=== PATIENT | male | born 1940 | race Two or more races ===

== ENCOUNTER 2016-09-29 22:38 | Inpatient (IN) | payer MEDICARE, MEDICAID ==
[~2016-09-29] VITALS: Ht 165.1 cm; Wt 43.1 kg
[2016-09-29 22:42] VITALS: BP 148/76
[2016-09-29 23:24] LABS: BASOPHILS % (AUTO) 1.1 % (0.0-2.0); EOSINOPHILS % (AUTO) 1.4 % (0.0-3.0); LYMPHOCYTES % (AUTO) 20.7 % (20.0-45.0); MEAN CORPUSCULAR HEMOGLOBIN 31.1 PG (27.0-31.0); MEAN CORPUSCULAR HGB CONC 34.3 G/DL (32.0-36.0); MEAN CORPUSCULAR VOLUME 91 FL (80-99); MEAN PLATELET VOLUME 7.5 FL (6.5-10.1); MONOCYTES % (AUTO) 12.3 % (1.0-10.0); NEUTROPHILS % (AUTO) 64.6 % (45.0-75.0); PLATELET COUNT 169 K/UL (150-450); RED CELL DISTRIBUTION WIDTH 13.3 % (11.6-14.8); WHITE BLOOD COUNT 7.3 K/UL (4.8-10.8)
[2016-09-29 23:43] LABS: TROPONIN I < 0.30 ng/mL (<=0.30)
[2016-09-29 23:46] LABS: ALANINE AMINOTRANSFERASE 5 U/L (3-41); ALBUMIN/GLOBULIN RATIO 1.2 (1.0-2.7); ANION GAP 14 (5-15); ASPARTATE AMINO TRANSFERASE 12 U/L (5-40); CALCIUM 6.2 mg/dL (8.6-10.2); CARBON DIOXIDE 21 mEQ/L (20-30); CHLORIDE 106 mEQ/L (98-107); CREATININE 0.8 mg/dL (0.7-1.2); HEMOLYSIS 30; POTASSIUM 2.9 mEQ/L (3.4-4.9); SODIUM 141 mEQ/L (135-145); TOTAL PROTEIN 4.7 g/dL (6.6-8.7)
[2016-09-30] VITALS (8 sets, daily range): BP systolic 126–160; BP diastolic 61–92
[2016-09-30] MEDS ORDERED: UNOBMED (02:51)
--- NOTE | 2016-09-30 04:10 | Emergency Room Report ---
History of Present Illness General Chief Complaint: Chest Pain Source: Patient, EMS Present Illness HPI Patient is a 76-year-old male who presented after increased generalized body aches and generalized weakness. The patient brought in by EMS. Patient stated that he most of his body was in pain. The patient appears to be somewhat confused. Patient markedly limited by patient's mental status. Allergies: Coded Allergies: No Known Allergies (Unverified , 09/29/16) Patient History Past Medical History: see triage record Reviewed Nursing Documentation: PMH: Agreed, PSxH: Agreed Nursing Documentation-PMH Past Medical History: No History, Except For Review of Systems All Other Systems: negative except mentioned in HPI Physical Exam Vital Signs Date Time Temp Pulse Resp B/P Pulse Ox O2 Delivery O2 Flow Rate FiO2 09/29/16 22:35 96 18 148/76 96 Room Air 09/29/16 22:42 99.1 Sp02 EP Interpretation: reviewed, normal General Appearance: normal inspection, well appearing, no apparent distress, alert Head: atraumatic ENT: normal ENT inspection, hearing grossly normal, normal voice Neck: normal inspection, full range of motion, supple, no bony tend Respiratory: normal inspection, lungs clear, normal breath sounds, no respiratory distress, no retraction, no wheezing Cardiovascular #1: regular rate, rhythm, no edema Gastrointestinal: normal inspection, normal bowel sounds, non tender, soft, no guarding, no hernia Genitourinary: no CVA tenderness Musculoskeletal: normal inspection, back normal, normal range of motion Neurologic: normal inspection, alert, responsive, 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 Differential diagnosis included was not limited to anemia, urinary tract infection, electrolyte abnormality, hypothyroidism, myocardial infarction, myasthenia gravis, dehydration, among others. Because of complexity of patient's case laboratory testing and imaging studies were ordered. The patient given IV fluids as well as oral potassium. Patient noted be somewhat confused and ambulatory without assistance. Labs Test 09/29/16 23:05 White Blood Count 7.3 K/UL (4.8-10.8) Red Blood Count 4.70 M/UL (4.70-6.10) Hemoglobin 14.6 G/DL (14.2-18.0) Hematocrit 42.6 % (42.0-52.0) Mean Corpuscular Volume 91 FL (80-99) Mean Corpuscular Hemoglobin 31.1 PG (27.0-31.0) Mean Corpuscular Hemoglobin Concent 34.3 G/DL (32.0-36.0) Red Cell Distribution Width 13.3 % (11.6-14.8) Platelet Count 169 K/UL (150-450) Mean Platelet Volume 7.5 FL (6.5-10.1) Neutrophils (%) (Auto) 64.6 % (45.0-75.0) Lymphocytes (%) (Auto) 20.7 % (20.0-45.0) Monocytes (%) (Auto) 12.3 % (1.0-10.0) Eosinophils (%) (Auto) 1.4 % (0.0-3.0) Basophils (%) (Auto) 1.1 % (0.0-2.0) Sodium Level 141 mEQ/L (135-145) Potassium Level 2.9 mEQ/L (3.4-4.9) Chloride Level 106 mEQ/L (98-107) Carbon Dioxide Level 21 mEQ/L (20-30) Anion Gap 14 (5-15) Blood Urea Nitrogen 5 mg/dL (7-23) Creatinine 0.8 mg/dL (0.7-1.2) Estimat Glomerular Filtration Rate mL/min (>60) Glucose Level 85 mg/dL (74-106) Lactic Acid Level 0.90 mmol/L (0.66-2.22) Calcium Level 6.2 mg/dL (8.6-10.2) Total Bilirubin 0.3 mg/dL (0.0-1.2) Aspartate Amino Transf (AST/SGOT) 12 U/L (5-40) Alanine Aminotransferase (ALT/SGPT) 5 U/L (3-41) Alkaline Phosphatase 39 U/L (40-129) Total Creatine Kinase 65 U/L (38-174) Creatine Kinase MB 2.0 ng/mL (< 6.7) Creatine Kinase MB Relative Index 3.0 Troponin I < 0.30 ng/mL (<=0.30) Total Protein 4.7 g/dL (6.6-8.7) Albumin 2.6 g/dL (3.5-5.2) Globulin 2.1 g/dL Albumin/Globulin Ratio 1.2 (1.0-2.7) EKG Diagnostic Results Rate: normal Rhythm: NSR ST Segments: no acute changes Last Vital Signs Date Time Temp Pulse Resp B/P Pulse Ox O2 Delivery O2 Flow Rate FiO2 09/30/16 02:46 74 18 154/80 100 Room Air 09/30/16 00:44 98.0 Status: unchanged Disposition: ADMITTED INPATIENT Condition: Serious Referrals: NOT CHOSEN IPA/,REFERRING (PCP) Jimenez Chase Sep 30, 2016 04:10
[2016-09-30] MEDS ORDERED: cefTRIAXone 1 GM in D5W 55 ML IVPB SCH (04:15)
[2016-09-30] MEDS ORDERED: D5W 55 ML IV ONE (04:38)
[2016-09-30] MEDS ORDERED: Tubing IV Cassette IV ONE (04:38)
[2016-09-30] MEDS ORDERED: DuoNeb 0.5-3(2.5)mg/3ml neb HHN PRN (07:15)
[2016-09-30] MEDS ORDERED: Miralax 17gm pkt ORAL PRN (07:15)
[2016-09-30] MEDS ORDERED: Morphine Sulfate 2mg/ml Inj IVP PRN (07:15)
[2016-09-30] MEDS ORDERED: Nitroglycerin Subl 0.4mg tab (Bottle Of 25) SL PRN (07:30)
[2016-09-30] MEDS: Heparin 5000 units/ml inj SUBQ SCH ×2 (08:50→21:19)
[2016-09-30] MEDS ORDERED: Vancomycin 1 GM in D5W 275 ML IVPB ONE (09:00)
--- NOTE | 2016-09-30 11:04 | Diagnostic Imaging Report ---
Indication: SOB Technique: One view of the chest Comparison: none Findings: Lungs and pleural spaces are clear. Heart size is normal. Aorta is calcified. There are degenerative changes of the thoracic spine Impression: No acute process
[2016-09-30] MEDS: Cefepime HCl 2 GM in D5W 110 ML IV SCH (11:19)
--- NOTE | 2016-09-30 16:24 | History & Physical ---
History and Physical History & Physicial Dictated for Int Med-Dr Fischer no. [id number]. RASHID FERRELL Sep 30, 2016 16:24
[2016-09-30 19:24] LABS: ANION GAP 16 (5-15); CALCIUM 9.1 mg/dL (8.6-10.2); CARBON DIOXIDE 24 mEQ/L (20-30); CHLORIDE 101 mEQ/L (98-107); CREATININE 1.2 mg/dL (0.7-1.2); HEMOLYSIS 14; POTASSIUM 4.5 mEQ/L (3.4-4.9); SODIUM 141 mEQ/L (135-145)
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
[2016-10-01] VITALS (7 sets, daily range): BP systolic 118–154; BP diastolic 59–85
--- NOTE | 2016-10-01 02:28 | History and Physical Report ---
DATE OF ADMISSION: 09/30/[address] Fischer. CHIEF COMPLAINT: The patient is a 76-year-old male who presents with chief complaint of generalized weakness and body aches. HISTORY OF PRESENT ILLNESS: The patient apparently lives alone. The patient's history and physical is difficult secondary to patient's mental status. Much of the history and physical is obtained from the patient's chart. The patient apparently presented to [facility] with altered mental status. The patient was confused. The patient was complaining of generalized weakness. The patient was also complained of generalized body aches. The patient was admitted for generalized weakness to rule out sepsis. REVIEW OF SYSTEMS: Unable to assess, secondary to the patient's mental condition. PAST MEDICAL HISTORY: The patient denies. PAST SURGICAL HISTORY: The patient denies. CURRENT MEDICATIONS: The patient denies. ALLERGIES: No known drug allergies. SOCIAL HISTORY: The patient states that he is , however he lives alone. The patient denies tobacco or alcohol use. PHYSICAL EXAMINATION: VITAL SIGNS: Temperature 97.3, respirations 18, pulse 62, and blood pressure . GENERAL: The patient is a well-developed and well-nourished thin appearing male in no apparent distress. HEENT: Eyes, pupils are equal and responsive to light and accommodation. Extraocular movements are intact. NECK: Supple without lymphadenopathy. CHEST: Lungs are clear to auscultation bilaterally without wheezes or rales. CARDIOVASCULAR: Regular rhythm and rate. S1 and S2 normal without murmurs, rubs, or gallops. ABDOMEN: Soft, nontender, and nondistended. Positive bowel sounds. No evidence of hepatosplenomegaly. Currently, no rebound or guarding. EXTREMITIES: Negative for clubbing, cyanosis, or edema. RECTAL/GENITAL: Refused. NEUROLOGIC: Cranial nerves II through XII are grossly intact without focal deficits. Motor strength is 5/5 bilaterally. Deep tendon reflexes 2+ plantar. LABORATORY STUDIES: WBC 7.3, hemoglobin 14.6, hematocrit 42.6, and platelets 169,000. Sodium 141, potassium decreased 2.9, chloride 106, CO2 21, BUN 5, creatinine 0.8, and glucose 85. Troponin less than 0.3. Chest x-ray was reported as no acute disease. ASSESSMENT: This is a 76-year-old male, 1. Generalized weakness. 2. Myalgias. 3. Altered mental status. 4. Hypokalemia. TREATMENT: 1. Altered mental status. The patient is currently clearing somewhat. A Neurology consultation with Dr. Luna. An MRI of the brain is pending. We will follow recommendation of Neurology. 2. Hypokalemia. The patient is currently receiving potassium supplementation. 3. Myalgias. Allen Forrest M.D. DR: MARV JOB#: [id number] CC:
[2016-10-01 07:42] LABS: EOSINOPHILS % (AUTO) 1.7 % (0.0-3.0); LYMPHOCYTES % (AUTO) 26.5 % (20.0-45.0); MEAN CORPUSCULAR HEMOGLOBIN 29.4 PG (27.0-31.0); MEAN CORPUSCULAR HGB CONC 32.1 G/DL (32.0-36.0); MEAN CORPUSCULAR VOLUME 92 FL (80-99); MEAN PLATELET VOLUME 7.7 FL (6.5-10.1); MONOCYTES % (AUTO) 11.6 % (1.0-10.0); NEUTROPHILS % (AUTO) 59.1 % (45.0-75.0); PLATELET COUNT 197 K/UL (150-450); RED BLOOD COUNT 5.23 M/UL (4.70-6.10); RED CELL DISTRIBUTION WIDTH 13.5 % (11.6-14.8)
[2016-10-01 07:58] LABS: MAGNESIUM 2.3 mg/dL (1.7-2.5); PHOSPHORUS 2.3 mg/dL (2.5-4.8)
[2016-10-01 08:01] LABS: ALANINE AMINOTRANSFERASE 6 U/L (3-41); ALBUMIN/GLOBULIN RATIO 1.1 (1.0-2.7); ANION GAP 14 (5-15); ASPARTATE AMINO TRANSFERASE 17 U/L (5-40); CALCIUM 9.2 mg/dL (8.6-10.2); CARBON DIOXIDE 25 mEQ/L (20-30); CHLORIDE 100 mEQ/L (98-107); CREATININE 1.2 mg/dL (0.7-1.2); HEMOLYSIS 6; POTASSIUM 4.4 mEQ/L (3.4-4.9); SODIUM 139 mEQ/L (135-145); TROPONIN I < 0.30 ng/mL (<=0.30)
[2016-10-01] MEDS ORDERED: Vancomycin 750mg/D5W 275ml IVPB SCH ×2 (09:00)
[2016-10-01] MEDS: Heparin 5000 units/ml inj SUBQ SCH ×2 (09:06→21:06)
[2016-10-01] MEDS: Cefepime HCl 2 GM in D5W 110 ML IV SCH (10:58)
--- NOTE | 2016-10-01 14:50 | Internal Med Progress Note ---
Subjective Date of Service: Oct 01, 2016 Physician Name Rashid Ferrell Attending Physician Hussain Fischer MD Current Medications Medications (Trade) Dose Ordered Sig/Edith Route PRN Reason Start Time Stop Time Status Last Admin Dose Admin Acetaminophen (Tylenol) 650 mg Q4H PRN ORAL T>100.5 09/30/16 07:15 10/30/16 07:14 Albuterol/ Ipratropium (DuoNeb 0.5-3(2.5)mg/3ml) 3 ml Q4H PRN HHN Shortness of Breath 09/30/16 07:15 10/05/16 07:14 Cefepime HCl/ Sodium Chloride (Maxipime/Sodium Chloride) 110 ml @ 220 mls/hr Q24H IV 10/02/16 11:00 10/07/16 10:59 Heparin Sodium (Porcine) (Heparin 5000 units/ml) 5,000 units EVERY 12 HOURS SUBQ 09/30/16 09:00 10/30/16 08:59 10/01/16 09:06 Morphine Sulfate (Morphine Sulfate) 2 mg Q4H PRN IVP Moderate Pain (Pain Scale 4-6) 09/30/16 07:15 10/07/16 07:14 Nitroglycerin (Ntg) 0.4 mg Q5MIN X 3 DOSES PRN SL Prn Chest Pain 09/30/16 07:30 10/30/16 07:29 Ondansetron HCl (Zofran) 4 mg Q6H PRN IVP Nausea & Vomiting 09/30/16 07:15 10/30/16 07:14 Polyethylene Glycol (Miralax) 17 gm DAILYPRN PRN ORAL Constipation 09/30/16 07:15 10/30/16 07:14 Temazepam (Restoril) 15 mg HSPRN PRN ORAL Insomnia 09/30/16 21:00 10/07/16 20:59 Vancomycin HCl 750 mg/Dextrose 275 ml @ 183.708 mls/hr Q24H IVPB 10/01/16 09:00 10/06/16 08:59 10/01/16 09:01 Vancomycin HCl 1 ea 1 ea DAILY PRN MISC . 09/30/16 07:30 10/30/16 07:29 Allergies: Coded Allergies: No Known Allergies (Unverified , 09/29/16) ROS Limited/Unobtainable: No Constitutional: Reports: no symptoms HEENT: Reports: no symptoms Cardiovascular: Reports: no symptoms Respiratory: Reports: no symptoms Gastrointestinal/Abdominal: Reports: no symptoms Genitourinary: Reports: no symptoms Neurologic/Psychiatric: Reports: no symptoms Subjective 76 YO M admitted with syncope and altered mental status. Await CT brain. Cover for Int Doyle-Dr Fischer. Objective Last Vital Signs Date Time Temp Pulse Resp B/P Pulse Ox O2 Delivery O2 Flow Rate FiO2 10/01/16 12:01 97.5 60 20 118/59 96 Room Air Laboratory Tests Test 09/30/16 18:58 10/01/16 05:10 Sodium Level 141 mEQ/L (135-145) 139 mEQ/L (135-145) Potassium Level 4.5 mEQ/L (3.4-4.9) # 4.4 mEQ/L (3.4-4.9) Chloride Level 101 mEQ/L (98-107) 100 mEQ/L (98-107) Carbon Dioxide Level 24 mEQ/L (20-30) 25 mEQ/L (20-30) Anion Gap 16 (5-15) H 14 (5-15) Blood Urea Nitrogen 7 mg/dL (7-23) 8 mg/dL (7-23) Creatinine 1.2 mg/dL (0.7-1.2) 1.2 mg/dL (0.7-1.2) Estimat Glomerular Filtration Rate mL/min (>60) mL/min (>60) Glucose Level 114 mg/dL (74-106) H 79 mg/dL (74-106) Calcium Level 9.1 mg/dL (8.6-10.2) # 9.2 mg/dL (8.6-10.2) White Blood Count 7.0 K/UL (4.8-10.8) Red Blood Count 5.23 M/UL (4.70-6.10) Hemoglobin 15.4 G/DL (14.2-18.0) Hematocrit 47.9 % (42.0-52.0) Mean Corpuscular Volume 92 FL (80-99) Mean Corpuscular Hemoglobin 29.4 PG (27.0-31.0) Mean Corpuscular Hemoglobin Concent 32.1 G/DL (32.0-36.0) Red Cell Distribution Width 13.5 % (11.6-14.8) Platelet Count 197 K/UL (150-450) Mean Platelet Volume 7.7 FL (6.5-10.1) Neutrophils (%) (Auto) 59.1 % (45.0-75.0) Lymphocytes (%) (Auto) 26.5 % (20.0-45.0) Monocytes (%) (Auto) 11.6 % (1.0-10.0) H Eosinophils (%) (Auto) 1.7 % (0.0-3.0) Basophils (%) (Auto) 1.0 % (0.0-2.0) Phosphorus Level 2.3 mg/dL (2.5-4.8) L Magnesium Level 2.3 mg/dL (1.7-2.5) Total Bilirubin 0.8 mg/dL (0.0-1.2) Aspartate Amino Transf (AST/SGOT) 17 U/L (5-40) Alanine Aminotransferase (ALT/SGPT) 6 U/L (3-41) Alkaline Phosphatase 63 U/L (40-129) Troponin I < 0.30 ng/mL (<=0.30) Total Protein 7.0 g/dL (6.6-8.7) # Albumin 3.7 g/dL (3.5-5.2) Globulin 3.3 g/dL Albumin/Globulin Ratio 1.1 (1.0-2.7) Microbiology Date/Time Source Procedure Growth Status 09/29/16 23:05 Blood Blood Culture - Preliminary NO GROWTH AFTER 24 HOURS Resulted 09/29/16 22:50 Blood Blood Culture - Preliminary NO GROWTH AFTER 24 HOURS Resulted Intake and Output 09/30/16 10/01/16 19:00 07:00 Intake Total 720 ml 480 ml Balance 720 ml 480 ml Intake Oral 720 ml 480 ml # Voids 3 # Bowel Movements 2 Objective General: alert, cooperative, no distress, appears stated age Head: normocephalic, without obvious abnormality, atraumatic; Contusion left forehead Eyes: conjunctivae/corneas clear. PERRL, EOM's intact Throat: lips, mucosa, and tongue normal. MMM Neck: supple, symmetrical, trachea midline, and no JVD Lungs: clear to auscultation bilaterally Heart: regular rate and rhythm, S1, S2 normal, no murmur, click, rub or gallop Abdomen: soft, non-tender, non-distended, bowel sounds normal; no masses or organomegaly Extremities: extremities normal, atraumatic, no cyanosis or edema Pulses: 2+ and symmetric Skin: skin color, texture, turgor normal; no rashes or lesions Neurologic: grossly normal, no focal deficits Assessment/Plan Problem List: (1) Altered mental status Assessment & Plan: ?sepsis? Continue cefepime and vanco. (2) Myalgia (3) Contusion of forehead Assessment & Plan: Await CT brain. (4) Generalized weakness (5) Hypokalemia Assessment & Plan: Resolved Status: not improved RASHID FERRELL Oct 01, 2016 14:50
[2016-10-02 03:37] VITALS: BP 142/75
[2016-10-02 08:00] VITALS: BP 149/77
[2016-10-02 08:46] LABS: BASOPHILS % (AUTO) 1.5 % (0.0-2.0); EOSINOPHILS % (AUTO) 2.4 % (0.0-3.0); LYMPHOCYTES % (AUTO) 27.4 % (20.0-45.0); MEAN CORPUSCULAR HEMOGLOBIN 29.2 PG (27.0-31.0); MEAN CORPUSCULAR HGB CONC 31.9 G/DL (32.0-36.0); MEAN CORPUSCULAR VOLUME 91 FL (80-99); MEAN PLATELET VOLUME 7.7 FL (6.5-10.1); MONOCYTES % (AUTO) 11.3 % (1.0-10.0); NEUTROPHILS % (AUTO) 57.4 % (45.0-75.0); PLATELET COUNT 197 K/UL (150-450); RED BLOOD COUNT 5.58 M/UL (4.70-6.10); RED CELL DISTRIBUTION WIDTH 13.7 % (11.6-14.8); WHITE BLOOD COUNT 6.3 K/UL (4.8-10.8)
[2016-10-02 09:14] LABS: ANION GAP 17 (5-15); CALCIUM 9.3 mg/dL (8.6-10.2); CARBON DIOXIDE 24 mEQ/L (20-30); CHLORIDE 100 mEQ/L (98-107); CREATININE 1.1 mg/dL (0.7-1.2); HEMOLYSIS 10; POTASSIUM 4.1 mEQ/L (3.4-4.9); SODIUM 141 mEQ/L (135-145)
[2016-10-02] MEDS: Heparin 5000 units/ml inj SUBQ SCH ×2 (10:08→20:51)
[2016-10-02] MEDS: Cefepime HCl 2 GM in NS 110 ML IV SCH (10:08)
[2016-10-02] MEDS: Vancomycin 1gm in D5W 275ml IVPB SCH (11:30)
[2016-10-02 12:00] VITALS: BP 149/77
--- NOTE | 2016-10-02 15:47 | Internal Med Progress Note ---
Subjective Date of Service: Oct 02, 2016 Physician Name Rashid Ferrell Attending Physician Hussain Fischer MD Current Medications Medications (Trade) Dose Ordered Sig/Edith Route PRN Reason Start Time Stop Time Status Last Admin Dose Admin Acetaminophen (Tylenol) 650 mg Q4H PRN ORAL T>100.5 09/30/16 07:15 10/30/16 07:14 Albuterol/ Ipratropium (DuoNeb 0.5-3(2.5)mg/3ml) 3 ml Q4H PRN HHN Shortness of Breath 09/30/16 07:15 10/05/16 07:14 Cefepime HCl 2 gm/ Sodium Chloride 110 ml @ 220 mls/hr Q24H IV 10/02/16 11:00 10/07/16 10:59 10/02/16 10:08 Heparin Sodium (Porcine) (Heparin 5000 units/ml) 5,000 units EVERY 12 HOURS SUBQ 09/30/16 09:00 10/30/16 08:59 10/02/16 10:08 Morphine Sulfate (Morphine Sulfate) 2 mg Q4H PRN IVP Moderate Pain (Pain Scale 4-6) 09/30/16 07:15 10/07/16 07:14 Nitroglycerin (Ntg) 0.4 mg Q5MIN X 3 DOSES PRN SL Prn Chest Pain 09/30/16 07:30 10/30/16 07:29 Ondansetron HCl (Zofran) 4 mg Q6H PRN IVP Nausea & Vomiting 09/30/16 07:15 10/30/16 07:14 Polyethylene Glycol (Miralax) 17 gm DAILYPRN PRN ORAL Constipation 09/30/16 07:15 10/30/16 07:14 Temazepam (Restoril) 15 mg HSPRN PRN ORAL Insomnia 09/30/16 21:00 10/07/16 20:59 10/01/16 21:01 Vancomycin HCl 1 ea 1 ea DAILY PRN MISC . 09/30/16 07:30 10/30/16 07:29 Vancomycin HCl/ Dextrose (Vancomycin/D5W) 275 ml @ 183.708 mls/hr Q24H IVPB 10/02/16 11:00 10/07/16 10:59 10/02/16 11:30 Allergies: Coded Allergies: No Known Allergies (Unverified , 09/29/16) ROS Limited/Unobtainable: No Constitutional: Reports: no symptoms HEENT: Reports: no symptoms Cardiovascular: Reports: no symptoms Respiratory: Reports: no symptoms Gastrointestinal/Abdominal: Reports: no symptoms Genitourinary: Reports: no symptoms Neurologic/Psychiatric: Reports: no symptoms Subjective 76 YO M admitted with syncope and altered mental status. Await CT brain. Cover for Int Doyle-Dr Fischer. Objective Last Vital Signs Date Time Temp Pulse Resp B/P Pulse Ox O2 Delivery O2 Flow Rate FiO2 10/02/16 12:00 97.3 77 20 149/77 100 Room Air 10/02/16 10:00 21 Laboratory Tests Test 10/02/16 08:15 White Blood Count 6.3 K/UL (4.8-10.8) Red Blood Count 5.58 M/UL (4.70-6.10) Hemoglobin 16.3 G/DL (14.2-18.0) Hematocrit 51.0 % (42.0-52.0) Mean Corpuscular Volume 91 FL (80-99) Mean Corpuscular Hemoglobin 29.2 PG (27.0-31.0) Mean Corpuscular Hemoglobin Concent 31.9 G/DL (32.0-36.0) L Red Cell Distribution Width 13.7 % (11.6-14.8) Platelet Count 197 K/UL (150-450) Mean Platelet Volume 7.7 FL (6.5-10.1) Neutrophils (%) (Auto) 57.4 % (45.0-75.0) Lymphocytes (%) (Auto) 27.4 % (20.0-45.0) Monocytes (%) (Auto) 11.3 % (1.0-10.0) H Eosinophils (%) (Auto) 2.4 % (0.0-3.0) Basophils (%) (Auto) 1.5 % (0.0-2.0) Sodium Level 141 mEQ/L (135-145) Potassium Level 4.1 mEQ/L (3.4-4.9) Chloride Level 100 mEQ/L (98-107) Carbon Dioxide Level 24 mEQ/L (20-30) Anion Gap 17 (5-15) H Blood Urea Nitrogen 9 mg/dL (7-23) Creatinine 1.1 mg/dL (0.7-1.2) Estimat Glomerular Filtration Rate mL/min (>60) Glucose Level 80 mg/dL (74-106) Calcium Level 9.3 mg/dL (8.6-10.2) Vancomycin Level Trough 9.8 ug/mL (5.0-12.0) Microbiology Date/Time Source Procedure Growth Status 09/29/16 23:05 Blood Blood Culture - Preliminary NO GROWTH AFTER 48 HOURS Resulted 09/29/16 22:50 Blood Blood Culture - Preliminary NO GROWTH AFTER 48 HOURS Resulted 10/01/16 11:56 Indwelling Cath Urine Culture - Preliminary NO GROWTH Resulted 09/30/16 15:00 Back Gram Stain - Final Resulted 09/30/16 15:00 Back Wound Culture - Preliminary NO GROWTH AFTER 24 HOURS Resulted Intake and Output 10/01/16 10/02/16 19:00 07:00 Intake Total 634 ml Balance 634 ml Intake Oral 450 ml IV Total 184 ml # Voids 9 Objective General: alert, cooperative, no distress, appears stated age Head: normocephalic, without obvious abnormality, atraumatic; Contusion left forehead Eyes: conjunctivae/corneas clear. PERRL, EOM's intact Throat: lips, mucosa, and tongue normal. MMM Neck: supple, symmetrical, trachea midline, and no JVD Lungs: clear to auscultation bilaterally Heart: regular rate and rhythm, S1, S2 normal, no murmur, click, rub or gallop Abdomen: soft, non-tender, non-distended, bowel sounds normal; no masses or organomegaly Extremities: extremities normal, atraumatic, no cyanosis or edema Pulses: 2+ and symmetric Skin: skin color, texture, turgor normal; no rashes or lesions Neurologic: grossly normal, no focal deficits Assessment/Plan Problem List: (1) Altered mental status Assessment & Plan: ?sepsis? Cultures negative so far. Continue cefepime and vanco. (2) Myalgia (3) Contusion of forehead Assessment & Plan: Await CT brain. (4) Generalized weakness (5) Hypokalemia Assessment & Plan: Resolved Status: progressing Assessment/Plan Discharge planning. RASHID FERRELL Oct 02, 2016 15:47
[2016-10-02 16:00] VITALS: BP 135/62
[2016-10-02 19:00] VITALS: BP 130/77
--- NOTE | 2016-10-02 19:12 | Pulmonology Progress Note ---
Assessment/Plan Problems: (1) Acute encephalopathy (2) Myalgia (3) Contusion of forehead Assessment/Plan improving pt/ot social service Subjective ROS Limited/Unobtainable: No Interval Events: comfortable Allergies: Coded Allergies: No Known Allergies (Unverified , 09/29/16) Objective Last 24 Hour Vital Signs Date Time Temp Pulse Resp B/P Pulse Ox O2 Delivery O2 Flow Rate FiO2 10/02/16 16:00 97.3 70 20 135/62 100 Room Air 10/02/16 12:00 97.3 77 20 149/77 100 Room Air 10/02/16 10:00 92 20 Room Air 21 10/02/16 08:00 97.3 92 20 149/77 100 Room Air 10/02/16 03:37 97.6 60 17 142/75 100 Room Air 10/01/16 23:31 95 18 Room Air 10/01/16 23:10 98.2 67 17 137/73 97 Room Air 10/01/16 19:33 97.0 80 16 150/85 97 Room Air Intake and Output 10/01/16 10/02/16 19:00 07:00 Intake Total 634 ml Balance 634 ml Intake Oral 450 ml IV Total 184 ml # Voids 9 Objective Lines, tubes and drains: peripheral, HEENT: normocephalic, atraumatic Neck: non-tender Respiratory/Chest: chest wall non-tender Cardiovascular/Chest: normal peripheral pulses Abdomen: normal bowel sounds, feeding tube, other Genitourinary/Rectal: normal genital exam Extremities: normal range of motion, non-tender Microbiology Date/Time Source Procedure Growth Status 09/29/16 23:05 Blood Blood Culture - Preliminary NO GROWTH AFTER 48 HOURS Resulted 09/29/16 22:50 Blood Blood Culture - Preliminary NO GROWTH AFTER 48 HOURS Resulted 10/01/16 11:56 Indwelling Cath Urine Culture - Preliminary NO GROWTH Resulted 09/30/16 15:00 Back Gram Stain - Final Resulted 09/30/16 15:00 Back Wound Culture - Preliminary NO GROWTH AFTER 24 HOURS Resulted Laboratory Tests 10/02/16 08:15: White Blood Count 6.3, Red Blood Count 5.58, Hemoglobin 16.3, Hematocrit 51.0, Mean Corpuscular Volume 91, Mean Corpuscular Hemoglobin 29.2, Mean Corpuscular Hemoglobin Concent 31.9L, Red Cell Distribution Width 13.7, Platelet Count 197, Mean Platelet Volume 7.7, Neutrophils (%) (Auto) 57.4, Lymphocytes (%) (Auto) 27.4, Monocytes (%) (Auto) 11.3H, Eosinophils (%) (Auto) 2.4, Basophils (%) ( Auto) 1.5, Sodium Level 141, Potassium Level 4.1, Chloride Level 100, Carbon Dioxide Level 24, Anion Gap 17H, Blood Urea Nitrogen 9, Creatinine 1.1, Estimat Glomerular Filtration Rate , Glucose Level 80, Calcium Level 9.3, Vancomycin Level Trough 9.8 Current Medications Medications (Trade) Dose Ordered Sig/Edith Route PRN Reason Start Time Stop Time Status Last Admin Dose Admin Acetaminophen (Tylenol) 650 mg Q4H PRN ORAL T>100.5 09/30/16 07:15 10/30/16 07:14 Albuterol/ Ipratropium (DuoNeb 0.5-3(2.5)mg/3ml) 3 ml Q4H PRN HHN Shortness of Breath 09/30/16 07:15 10/05/16 07:14 Cefepime HCl 2 gm/ Sodium Chloride 110 ml @ 220 mls/hr Q24H IV 10/02/16 11:00 10/07/16 10:59 10/02/16 10:08 Heparin Sodium (Porcine) (Heparin 5000 units/ml) 5,000 units EVERY 12 HOURS SUBQ 09/30/16 09:00 10/30/16 08:59 10/02/16 10:08 Morphine Sulfate (Morphine Sulfate) 2 mg Q4H PRN IVP Moderate Pain (Pain Scale 4-6) 09/30/16 07:15 10/07/16 07:14 Nitroglycerin (Ntg) 0.4 mg Q5MIN X 3 DOSES PRN SL Prn Chest Pain 09/30/16 07:30 10/30/16 07:29 Ondansetron HCl (Zofran) 4 mg Q6H PRN IVP Nausea & Vomiting 09/30/16 07:15 10/30/16 07:14 Polyethylene Glycol (Miralax) 17 gm DAILYPRN PRN ORAL Constipation 09/30/16 07:15 10/30/16 07:14 Temazepam (Restoril) 15 mg HSPRN PRN ORAL Insomnia 09/30/16 21:00 10/07/16 20:59 10/01/16 21:01 Vancomycin HCl 1 ea 1 ea DAILY PRN MISC . 09/30/16 07:30 10/30/16 07:29 Vancomycin HCl/ Dextrose (Vancomycin/D5W) 275 ml @ 183.708 mls/hr Q24H IVPB 10/02/16 11:00 10/07/16 10:59 10/02/16 11:30 RICHARD MACDONALD Oct 02, 2016 19:12
[2016-10-03] VITALS: BP 139/54
[2016-10-03 04:00] VITALS: BP 134/91
[2016-10-03 07:49] LABS: EOSINOPHILS % (AUTO) 1.5 % (0.0-3.0); LYMPHOCYTES % (AUTO) 26.8 % (20.0-45.0); MEAN CORPUSCULAR HEMOGLOBIN 29.2 PG (27.0-31.0); MEAN CORPUSCULAR VOLUME 91 FL (80-99); MEAN PLATELET VOLUME 7.2 FL (6.5-10.1); MONOCYTES % (AUTO) 10.5 % (1.0-10.0); NEUTROPHILS % (AUTO) 59.3 % (45.0-75.0); PLATELET COUNT 211 K/UL (150-450); RED BLOOD COUNT 5.43 M/UL (4.70-6.10); RED CELL DISTRIBUTION WIDTH 13.3 % (11.6-14.8)
[2016-10-03 07:52] VITALS: BP 138/78
[2016-10-03 08:20] LABS: ANION GAP 20 (5-15); CALCIUM 9.3 mg/dL (8.6-10.2); CARBON DIOXIDE 21 mEQ/L (20-30); CHLORIDE 101 mEQ/L (98-107); CREATININE 1.1 mg/dL (0.7-1.2); HEMOLYSIS 3; POTASSIUM 4.2 mEQ/L (3.4-4.9); SODIUM 142 mEQ/L (135-145)
[2016-10-03] MEDS: Heparin 5000 units/ml inj SUBQ SCH ×2 (08:31→21:19)
--- NOTE | 2016-10-03 10:23 | Internal Med Progress Note ---
Subjective Date of Service: Oct 03, 2016 Physician Name Rashid Ferrell Attending Physician Hussain Fischer MD Current Medications Medications (Trade) Dose Ordered Sig/Edith Route PRN Reason Start Time Stop Time Status Last Admin Dose Admin Acetaminophen (Tylenol) 650 mg Q4H PRN ORAL T>100.5 09/30/16 07:15 10/30/16 07:14 Albuterol/ Ipratropium (DuoNeb 0.5-3(2.5)mg/3ml) 3 ml Q4H PRN HHN Shortness of Breath 09/30/16 07:15 10/05/16 07:14 Cefepime HCl 2 gm/ Sodium Chloride 110 ml @ 220 mls/hr Q24H IV 10/02/16 11:00 10/07/16 10:59 10/02/16 10:08 Heparin Sodium (Porcine) (Heparin 5000 units/ml) 5,000 units EVERY 12 HOURS SUBQ 09/30/16 09:00 10/30/16 08:59 10/03/16 08:31 Morphine Sulfate (Morphine Sulfate) 2 mg Q4H PRN IVP Moderate Pain (Pain Scale 4-6) 09/30/16 07:15 10/07/16 07:14 Nitroglycerin (Ntg) 0.4 mg Q5MIN X 3 DOSES PRN SL Prn Chest Pain 09/30/16 07:30 10/30/16 07:29 Ondansetron HCl (Zofran) 4 mg Q6H PRN IVP Nausea & Vomiting 09/30/16 07:15 10/30/16 07:14 Polyethylene Glycol (Miralax) 17 gm DAILYPRN PRN ORAL Constipation 09/30/16 07:15 10/30/16 07:14 Temazepam (Restoril) 15 mg HSPRN PRN ORAL Insomnia 09/30/16 21:00 10/07/16 20:59 10/01/16 21:01 Vancomycin HCl 1 ea 1 ea DAILY PRN MISC . 09/30/16 07:30 10/30/16 07:29 Vancomycin HCl/ Dextrose (Vancomycin/D5W) 275 ml @ 183.708 mls/hr Q24H IVPB 10/02/16 11:00 10/07/16 10:59 10/02/16 11:30 Allergies: Coded Allergies: No Known Allergies (Unverified , 09/29/16) ROS Limited/Unobtainable: No Constitutional: Reports: no symptoms HEENT: Reports: no symptoms Cardiovascular: Reports: no symptoms Respiratory: Reports: no symptoms Gastrointestinal/Abdominal: Reports: no symptoms Genitourinary: Reports: no symptoms Neurologic/Psychiatric: Reports: no symptoms Subjective 76 YO M admitted with syncope and altered mental status. Await CT brain. Cover for Int Doyle-Dr Fischer. Objective Last Vital Signs Date Time Temp Pulse Resp B/P Pulse Ox O2 Delivery O2 Flow Rate FiO2 10/03/16 07:52 97.9 103 21 138/78 97 Room Air 10/02/16 20:24 21 Laboratory Tests Test 10/03/16 07:15 White Blood Count 6.0 K/UL (4.8-10.8) Red Blood Count 5.43 M/UL (4.70-6.10) Hemoglobin 15.8 G/DL (14.2-18.0) Hematocrit 49.5 % (42.0-52.0) Mean Corpuscular Volume 91 FL (80-99) Mean Corpuscular Hemoglobin 29.2 PG (27.0-31.0) Mean Corpuscular Hemoglobin Concent 32.0 G/DL (32.0-36.0) Red Cell Distribution Width 13.3 % (11.6-14.8) Platelet Count 211 K/UL (150-450) Mean Platelet Volume 7.2 FL (6.5-10.1) Neutrophils (%) (Auto) 59.3 % (45.0-75.0) Lymphocytes (%) (Auto) 26.8 % (20.0-45.0) Monocytes (%) (Auto) 10.5 % (1.0-10.0) H Eosinophils (%) (Auto) 1.5 % (0.0-3.0) Basophils (%) (Auto) 2.0 % (0.0-2.0) Sodium Level 142 mEQ/L (135-145) Potassium Level 4.2 mEQ/L (3.4-4.9) Chloride Level 101 mEQ/L (98-107) Carbon Dioxide Level 21 mEQ/L (20-30) Anion Gap 20 (5-15) H Blood Urea Nitrogen 11 mg/dL (7-23) Creatinine 1.1 mg/dL (0.7-1.2) Estimat Glomerular Filtration Rate mL/min (>60) Glucose Level 72 mg/dL (74-106) L Calcium Level 9.3 mg/dL (8.6-10.2) Microbiology Date/Time Source Procedure Growth Status 10/01/16 05:20 Blood Blood Culture - Preliminary NO GROWTH AFTER 24 HOURS Resulted 10/01/16 05:10 Blood Blood Culture - Preliminary NO GROWTH AFTER 24 HOURS Resulted 10/01/16 11:56 Indwelling Cath Urine Culture - Preliminary NO GROWTH Resulted 09/30/16 15:00 Back Gram Stain - Final Resulted 09/30/16 15:00 Back Wound Culture - Preliminary Resulted Intake and Output 10/02/16 10/03/16 19:00 07:00 Intake Total 985.000 ml 360 ml Balance 985.000 ml 360 ml Intake Oral 600 ml 360 ml IV Total 385.000 ml # Voids 4 5 Objective General: alert, cooperative, no distress, appears stated age Head: normocephalic, without obvious abnormality, atraumatic; Contusion left forehead Eyes: conjunctivae/corneas clear. PERRL, EOM's intact Throat: lips, mucosa, and tongue normal. MMM Neck: supple, symmetrical, trachea midline, and no JVD Lungs: clear to auscultation bilaterally Heart: regular rate and rhythm, S1, S2 normal, no murmur, click, rub or gallop Abdomen: soft, non-tender, non-distended, bowel sounds normal; no masses or organomegaly Extremities: extremities normal, atraumatic, no cyanosis or edema Pulses: 2+ and symmetric Skin: skin color, texture, turgor normal; no rashes or lesions Neurologic: grossly normal, no focal deficits Assessment/Plan Problem List: (1) Altered mental status Assessment & Plan: ?sepsis? Cultures negative so far. Continue cefepime and vanco. (2) Myalgia (3) Contusion of forehead Assessment & Plan: Await CT brain. (4) Generalized weakness (5) Hypokalemia Assessment & Plan: Resolved Status: not improved Assessment/Plan Discharge planning. RASHID FERRELL Oct 03, 2016 10:23
[2016-10-03] MEDS: Cefepime HCl 2 GM in NS 110 ML IV SCH (11:37)
[2016-10-03 11:47] VITALS: BP 126/73
[2016-10-03] MEDS: Vancomycin 1gm in D5W 275ml IVPB SCH (12:48)
[2016-10-03 15:47] VITALS: BP 138/73
--- NOTE | 2016-10-03 15:56 | Pulmonology Progress Note ---
Assessment/Plan Problems: (1) Acute encephalopathy (2) Myalgia (3) Contusion of forehead Assessment/Plan pt/ot psych evaluation social service evaluation Subjective ROS Limited/Unobtainable: No Interval Events: still confused Allergies: Coded Allergies: No Known Allergies (Unverified , 09/29/16) Objective Last 24 Hour Vital Signs Date Time Temp Pulse Resp B/P Pulse Ox O2 Delivery O2 Flow Rate FiO2 10/03/16 15:47 97.7 73 21 138/73 97 Room Air 10/03/16 11:47 97.2 86 20 126/73 100 Room Air 10/03/16 10:22 105 21 Room Air 21 10/03/16 07:52 97.9 103 21 138/78 97 Room Air 10/03/16 04:00 96.8 78 18 134/91 100 Room Air 10/03/16 00:00 96.8 78 18 139/54 100 Room Air 10/02/16 20:24 89 20 Room Air 21 10/02/16 19:00 97.8 72 20 130/77 Room Air 10/02/16 16:00 97.3 70 20 135/62 100 Room Air Intake and Output 10/02/16 10/03/16 19:00 07:00 Intake Total 985.000 ml 360 ml Balance 985.000 ml 360 ml Intake Oral 600 ml 360 ml IV Total 385.000 ml # Voids 4 5 General Appearance: WD/WN HEENT: normocephalic, atraumatic, PERRL Respiratory/Chest: chest wall non-tender Cardiovascular: normal peripheral pulses, normal rate Abdomen: normal bowel sounds, soft, non tender Extremities: no cyanosis Skin: no rash, no ulcers Microbiology Date/Time Source Procedure Growth Status 10/01/16 05:20 Blood Blood Culture - Preliminary NO GROWTH AFTER 48 HOURS Resulted 10/01/16 05:10 Blood Blood Culture - Preliminary NO GROWTH AFTER 48 HOURS Resulted 10/01/16 11:56 Indwelling Cath Urine Culture - Preliminary NO GROWTH AFTER 24 HOURS Resulted Laboratory Tests 10/03/16 07:15: White Blood Count 6.0, Red Blood Count 5.43, Hemoglobin 15.8, Hematocrit 49.5, Mean Corpuscular Volume 91, Mean Corpuscular Hemoglobin 29.2, Mean Corpuscular Hemoglobin Concent 32.0, Red Cell Distribution Width 13.3, Platelet Count 211, Mean Platelet Volume 7.2, Neutrophils (%) (Auto) 59.3, Lymphocytes (%) (Auto) 26.8, Monocytes (%) (Auto) 10.5H, Eosinophils (%) (Auto) 1.5, Basophils (%) ( Auto) 2.0, Sodium Level 142, Potassium Level 4.2, Chloride Level 101, Carbon Dioxide Level 21, Anion Gap 20H, Blood Urea Nitrogen 11, Creatinine 1.1, Estimat Glomerular Filtration Rate , Glucose Level 72L, Calcium Level 9.3 Current Medications Medications (Trade) Dose Ordered Sig/Edith Route PRN Reason Start Time Stop Time Status Last Admin Dose Admin Acetaminophen (Tylenol) 650 mg Q4H PRN ORAL T>100.5 09/30/16 07:15 10/30/16 07:14 Albuterol/ Ipratropium (DuoNeb 0.5-3(2.5)mg/3ml) 3 ml Q4H PRN HHN Shortness of Breath 09/30/16 07:15 10/05/16 07:14 Cefepime HCl 2 gm/ Sodium Chloride 110 ml @ 220 mls/hr Q24H IV 10/02/16 11:00 10/07/16 10:59 10/03/16 11:37 Heparin Sodium (Porcine) (Heparin 5000 units/ml) 5,000 units EVERY 12 HOURS SUBQ 09/30/16 09:00 10/30/16 08:59 10/03/16 08:31 Morphine Sulfate (Morphine Sulfate) 2 mg Q4H PRN IVP Moderate Pain (Pain Scale 4-6) 09/30/16 07:15 10/07/16 07:14 Nitroglycerin (Ntg) 0.4 mg Q5MIN X 3 DOSES PRN SL Prn Chest Pain 09/30/16 07:30 10/30/16 07:29 Ondansetron HCl (Zofran) 4 mg Q6H PRN IVP Nausea & Vomiting 09/30/16 07:15 10/30/16 07:14 Polyethylene Glycol (Miralax) 17 gm DAILYPRN PRN ORAL Constipation 09/30/16 07:15 10/30/16 07:14 Temazepam (Restoril) 15 mg HSPRN PRN ORAL Insomnia 09/30/16 21:00 10/07/16 20:59 10/01/16 21:01 Vancomycin HCl 1 ea 1 ea DAILY PRN MISC . 09/30/16 07:30 10/30/16 07:29 Vancomycin HCl/ Dextrose (Vancomycin/D5W) 275 ml @ 183.708 mls/hr Q24H IVPB 10/02/16 11:00 10/07/16 10:59 10/03/16 12:48 RICHARD MACDONALD Oct 03, 2016 15:56
--- NOTE | 2016-10-03 16:56 | Cardiology Report ---
APPROVED REPORT EKG Measurement Heart [id number] Normal sinus rhythm Normal ECG
[2016-10-03 20:04] VITALS: BP 135/76
[2016-10-04] VITALS: BP 140/60
[2016-10-04 04:00] VITALS: BP 138/59
[2016-10-04 06:59] LABS: ANION GAP 9 (5-15); CALCIUM 8.8 mg/dL (8.6-10.2); CARBON DIOXIDE 28 mEQ/L (20-30); CHLORIDE 106 mEQ/L (98-107); CREATININE 0.9 mg/dL (0.7-1.2); HEMOLYSIS 5; POTASSIUM 3.9 mEQ/L (3.4-4.9); SODIUM 143 mEQ/L (135-145)
[2016-10-04 07:18] LABS: BASOPHILS % (AUTO) 1.3 % (0.0-2.0); EOSINOPHILS % (AUTO) 3.1 % (0.0-3.0); LYMPHOCYTES % (AUTO) 27.8 % (20.0-45.0); MEAN CORPUSCULAR HEMOGLOBIN 29.8 PG (27.0-31.0); MEAN CORPUSCULAR HGB CONC 32.5 G/DL (32.0-36.0); MEAN CORPUSCULAR VOLUME 92 FL (80-99); MEAN PLATELET VOLUME 8.5 FL (6.5-10.1); MONOCYTES % (AUTO) 14.4 % (1.0-10.0); NEUTROPHILS % (AUTO) 53.4 % (45.0-75.0); PLATELET COUNT 182 K/UL (150-450); RED BLOOD COUNT 4.84 M/UL (4.70-6.10); RED CELL DISTRIBUTION WIDTH 13.9 % (11.6-14.8); WHITE BLOOD COUNT 4.3 K/UL (4.8-10.8)
[2016-10-04 07:56] VITALS: BP 132/63
[2016-10-04] MEDS: Heparin 5000 units/ml inj SUBQ SCH ×2 (08:45→20:34)
[2016-10-04] MEDS: Cefepime HCl 2 GM in NS 110 ML IV SCH (11:25)
[2016-10-04 12:05] VITALS: BP 141/71
[2016-10-04] MEDS: Vancomycin 1gm in D5W 275ml IVPB SCH (12:06)
--- NOTE | 2016-10-04 13:42 | Diagnostic Imaging Report ---
Indication: AMS Technique: IV administration nonionic contrast. Precontrast, arterial phase, and delayed phase spiral acquisitions obtained through the brain. Multiplanar and 3-D reconstructions were generated. Total dose length product 3892 mGycm. CTDIvol(s) 70, 16, 165, 55, 55 mGy. Radiation dose was minimized using automated exposure control Comparison: None Findings: Precontrast images demonstrate age-related enlargement of the ventricles and extra-axial spaces as well as periventricular chronic deep white matter ischemic change. No acute hemorrhage or edema. No mass effect or midline shift. Otherwise normal lind-white differentiation Angiographic images demonstrate markedly dominant right vertebral artery, hypoplastic left vertebral artery, particularly the distalmost segment after the PICA origin. Both the ICAs appear to be patent, as do the superior cerebellar arteries. The left posterior communicating artery is patent. No right posterior communicating artery is demonstrated. There is focal approximately 50% narrowing of the right P1/P2 junction. This is best appreciated on the MIP images. The left TR segment and proximal branches are widely patent. The distal right extracranial internal carotid artery, the intrapetrous segment, and the carotid siphon are patent, without significant stenosis. However, there is significant narrowing of the distal internal carotid artery distal to this, suggestive of 50% or greater narrowing on the source images. The M1 segment demonstrates normal caliber, as do the proximal middle cervical artery branches. There is absence of the right A1 segment. The distal left extracranial internal carotid artery, intrapetrous segment, carotid siphon and distal internal carotid artery are widely patent. The left A1 segment feeds both anterior cerebral arteries via a patent anterior communicating artery. The A2 segments and branches are patent without significant stenosis. The M1 segment and proximal branches are all patent without significant stenosis. No evidence of aneurysm or vascular malformation. No abnormal contrast enhancing lesion is demonstrated on the delayed phase images. 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 is accredited by the [employer] and the scans are performed using protocols designed to limit radiation exposure to as low as reasonably achievable to attain images of sufficient resolution adequate for diagnostic evaluation.
--- NOTE | 2016-10-04 15:23 | Diagnostic Imaging Report ---
APPROVED REPORT CPT Code: 38843 Vascular Symptoms Dizziness and Vertigo Doppler Spectral Velocity Analysis RightLeft arteries. The Doppler spectral flow analysis indicates the degree of stenosis is moderatel (40-50%) in the common carotid artery, mild (30%) in the internal and the external carotid arteries. VERTEBRAL- The vertebral artery is patent, without evidence of stenosis or steal. LEFT SIDE: CCA - Imaging reveals no significant plaque in the common carotid artery. ICA arteries. The Doppler signal indicates the degree of stenosis is minimal (20%) in the internal carotid, and (10%) in the external carotid arteries. VERTEBRAL- The vertebral artery is patent, without evidence of stenosis or steal.
[2016-10-04 15:59] VITALS: BP 141/61
--- NOTE | 2016-10-04 16:14 | Internal Med Progress Note ---
Subjective Date of Service: Oct 04, 2016 Physician Name Allen Ferrell Attending Physician Hussain Fischer MD Current Medications Medications (Trade) Dose Ordered Sig/Edith Route PRN Reason Start Time Stop Time Status Last Admin Dose Admin Acetaminophen (Tylenol) 650 mg Q4H PRN ORAL T>100.5 09/30/16 07:15 10/30/16 07:14 Albuterol/ Ipratropium (DuoNeb 0.5-3(2.5)mg/3ml) 3 ml Q4H PRN HHN Shortness of Breath 09/30/16 07:15 10/05/16 07:14 Cefepime HCl 2 gm/ Sodium Chloride 110 ml @ 220 mls/hr Q24H IV 10/02/16 11:00 10/07/16 10:59 10/04/16 11:25 Heparin Sodium (Porcine) (Heparin 5000 units/ml) 5,000 units EVERY 12 HOURS SUBQ 09/30/16 09:00 10/30/16 08:59 10/04/16 08:45 Morphine Sulfate (Morphine Sulfate) 2 mg Q4H PRN IVP Moderate Pain (Pain Scale 4-6) 09/30/16 07:15 10/07/16 07:14 Nitroglycerin (Ntg) 0.4 mg Q5MIN X 3 DOSES PRN SL Prn Chest Pain 09/30/16 07:30 10/30/16 07:29 Ondansetron HCl (Zofran) 4 mg Q6H PRN IVP Nausea & Vomiting 09/30/16 07:15 10/30/16 07:14 Polyethylene Glycol (Miralax) 17 gm DAILYPRN PRN ORAL Constipation 09/30/16 07:15 10/30/16 07:14 Temazepam (Restoril) 15 mg HSPRN PRN ORAL Insomnia 09/30/16 21:00 10/07/16 20:59 10/03/16 21:22 Vancomycin HCl 1 ea 1 ea DAILY PRN MISC . 09/30/16 07:30 10/30/16 07:29 Vancomycin HCl/ Dextrose (Vancomycin/D5W) 275 ml @ 183.708 mls/hr Q24H IVPB 10/02/16 11:00 10/07/16 10:59 10/04/16 12:06 Allergies: Coded Allergies: No Known Allergies (Unverified , 09/29/16) ROS Limited/Unobtainable: Yes Subjective 76 YO M admitted with syncope and altered mental status. Cover for Int Med-Dr Fischer. Objective Last Vital Signs Date Time Temp Pulse Resp B/P Pulse Ox O2 Delivery O2 Flow Rate FiO2 10/04/16 15:59 97.9 80 15 141/61 99 Room Air 10/04/16 10:37 21 Laboratory Tests Test 10/04/16 05:55 White Blood Count 4.3 K/UL (4.8-10.8) L Red Blood Count 4.84 M/UL (4.70-6.10) Hemoglobin 14.4 G/DL (14.2-18.0) Hematocrit 44.4 % (42.0-52.0) Mean Corpuscular Volume 92 FL (80-99) Mean Corpuscular Hemoglobin 29.8 PG (27.0-31.0) Mean Corpuscular Hemoglobin Concent 32.5 G/DL (32.0-36.0) Red Cell Distribution Width 13.9 % (11.6-14.8) Platelet Count 182 K/UL (150-450) Mean Platelet Volume 8.5 FL (6.5-10.1) Neutrophils (%) (Auto) 53.4 % (45.0-75.0) Lymphocytes (%) (Auto) 27.8 % (20.0-45.0) Monocytes (%) (Auto) 14.4 % (1.0-10.0) H Eosinophils (%) (Auto) 3.1 % (0.0-3.0) H Basophils (%) (Auto) 1.3 % (0.0-2.0) Sodium Level 143 mEQ/L (135-145) Potassium Level 3.9 mEQ/L (3.4-4.9) Chloride Level 106 mEQ/L (98-107) Carbon Dioxide Level 28 mEQ/L (20-30) Anion Gap 9 (5-15) Blood Urea Nitrogen 10 mg/dL (7-23) Creatinine 0.9 mg/dL (0.7-1.2) Estimat Glomerular Filtration Rate mL/min (>60) Glucose Level 81 mg/dL (74-106) Calcium Level 8.8 mg/dL (8.6-10.2) Intake and Output 10/03/16 10/04/16 19:00 07:00 Intake Total 1305.000 ml 360 ml Balance 1305.000 ml 360 ml Intake Oral 920 ml 360 ml IV Total 385.000 ml # Voids 2 Objective General: alert, cooperative, no distress, appears stated age Head: normocephalic, without obvious abnormality, atraumatic; Contusion left forehead Eyes: conjunctivae/corneas clear. PERRL, EOM's intact Throat: lips, mucosa, and tongue normal. MMM Neck: supple, symmetrical, trachea midline, and no JVD Lungs: clear to auscultation bilaterally Heart: regular rate and rhythm, S1, S2 normal, no murmur, click, rub or gallop Abdomen: soft, non-tender, non-distended, bowel sounds normal; no masses or organomegaly Extremities: extremities normal, atraumatic, no cyanosis or edema Pulses: 2+ and symmetric Skin: skin color, texture, turgor normal; no rashes or lesions Neurologic: grossly normal, no focal deficits Assessment/Plan Problem List: (1) Altered mental status Assessment & Plan: ?sepsis? Cultures negative so far. Continue cefepime and vanco. (2) Myalgia (3) Contusion of forehead Assessment & Plan: CT brain=no acute hemorrhage or infarct. Await Psychiatric consult?psychosis?-see social work note. (4) Generalized weakness (5) Hypokalemia Assessment & Plan: Resolved Status: not improved Assessment/Plan Discharge planning ?psych? ALLEN FERRELL Oct 04, 2016 16:14
[2016-10-04] MEDS ORDERED: LORazepam 1mg tab ORAL PRN (16:45)
[2016-10-04 20:00] VITALS: BP 140/72
--- NOTE | 2016-10-04 22:26 | Pulmonology Progress Note ---
Assessment/Plan Problems: (1) Acute encephalopathy (2) Myalgia (3) Contusion of forehead Assessment/Plan pt/ot psych evaluation social service evaluation d/c planning Subjective ROS Limited/Unobtainable: No Allergies: Coded Allergies: No Known Allergies (Unverified , 09/29/16) Objective Last 24 Hour Vital Signs Date Time Temp Pulse Resp B/P Pulse Ox O2 Delivery O2 Flow Rate FiO2 10/04/16 20:00 97.0 77 20 140/72 99 Room Air 10/04/16 19:20 72 18 Room Air 21 10/04/16 15:59 97.9 80 15 141/61 99 Room Air 10/04/16 12:05 97.5 63 14 141/71 100 Room Air 10/04/16 10:37 66 18 Room Air 21 10/04/16 07:56 98.0 66 15 132/63 99 Room Air 10/04/16 04:00 98.1 64 20 138/59 97 Room Air 10/04/16 00:00 97.9 60 19 140/60 98 Room Air Intake and Output 10/03/16 10/04/16 19:00 07:00 Intake Total 1305.000 ml 360 ml Balance 1305.000 ml 360 ml Intake Oral 920 ml 360 ml IV Total 385.000 ml # Voids 2 Objective Lines, tubes and drains: peripheral, HEENT: normocephalic, atraumatic Neck: non-tender Respiratory/Chest: chest wall non-tender Cardiovascular/Chest: normal peripheral pulses Abdomen: normal bowel sounds, feeding tube, other Genitourinary/Rectal: normal genital exam Extremities: normal range of motion, non-tender Laboratory Tests 10/04/16 05:55: White Blood Count 4.3L, Red Blood Count 4.84, Hemoglobin 14.4, Hematocrit 44.4, Mean Corpuscular Volume 92, Mean Corpuscular Hemoglobin 29.8, Mean Corpuscular Hemoglobin Concent 32.5, Red Cell Distribution Width 13.9, Platelet Count 182, Mean Platelet Volume 8.5, Neutrophils (%) (Auto) 53.4, Lymphocytes (%) (Auto) 27.8, Monocytes (%) (Auto) 14.4H, Eosinophils (%) (Auto) 3.1H, Basophils (%) ( Auto) 1.3, Sodium Level 143, Potassium Level 3.9, Chloride Level 106, Carbon Dioxide Level 28, Anion Gap 9, Blood Urea Nitrogen 10, Creatinine 0.9, Estimat Glomerular Filtration Rate , Glucose Level 81, Calcium Level 8.8 Current Medications Medications (Trade) Dose Ordered Sig/Edith Route PRN Reason Start Time Stop Time Status Last Admin Dose Admin Acetaminophen (Tylenol) 650 mg Q4H PRN ORAL T>100.5 09/30/16 07:15 10/30/16 07:14 Albuterol/ Ipratropium (DuoNeb 0.5-3(2.5)mg/3ml) 3 ml Q4H PRN HHN Shortness of Breath 09/30/16 07:15 10/05/16 07:14 Cefepime HCl 2 gm/ Sodium Chloride 110 ml @ 220 mls/hr Q24H IV 10/02/16 11:00 10/07/16 10:59 10/04/16 11:25 Heparin Sodium (Porcine) (Heparin 5000 units/ml) 5,000 units EVERY 12 HOURS SUBQ 09/30/16 09:00 10/30/16 08:59 10/04/16 20:34 Lorazepam (Ativan) 1 mg Q4H PRN ORAL For Anxiety 10/04/16 16:45 10/11/16 16:44 Morphine Sulfate (Morphine Sulfate) 2 mg Q4H PRN IVP Moderate Pain (Pain Scale 4-6) 09/30/16 07:15 10/07/16 07:14 Nitroglycerin (Ntg) 0.4 mg Q5MIN X 3 DOSES PRN SL Prn Chest Pain 09/30/16 07:30 10/30/16 07:29 Ondansetron HCl (Zofran) 4 mg Q6H PRN IVP Nausea & Vomiting 09/30/16 07:15 10/30/16 07:14 Polyethylene Glycol (Miralax) 17 gm DAILYPRN PRN ORAL Constipation 09/30/16 07:15 10/30/16 07:14 Temazepam (Restoril) 15 mg HSPRN PRN ORAL Insomnia 09/30/16 21:00 10/07/16 20:59 10/04/16 21:34 Vancomycin HCl 1 ea 1 ea DAILY PRN MISC . 09/30/16 07:30 10/30/16 07:29 Vancomycin HCl/ Dextrose (Vancomycin/D5W) 275 ml @ 183.708 mls/hr Q24H IVPB 10/02/16 11:00 10/07/16 10:59 10/04/16 12:06 RICHARD MACDONALD Oct 04, 2016 22:26
[2016-10-05] VITALS: BP 115/61
--- NOTE | 2016-10-05 02:58 | Consultation ---
DATE OF CONSULTATION: CONSULTING PHYSICIAN: Jerrell Kaufman M.D. HISTORY OF PRESENT ILLNESS: This is a 76-year-old male with a history of electrolyte imbalance, myalgia, and of forehead, has been admitted to the hospital due to aggressive behaviors. Apparently, the patient lives at home with family including his and his daughter. The patient is from [facility] and according to his , he always has been strained. Recently, he has been presenting with decline in his memory and functioning. He also became aggressive towards his . During the evaluation, the patient was deemed appropriate, was making sexual gestures, sending kiss to me and to the nurse. The evaluation was conducted in the presence and assistance of the Kiswahili-speaking nurse. The patient was confused, disoriented, he was only oriented to self. He knew his date of and year, however, he did not know the month, date, nor the current president. He was unable to recall the three words after three minutes. His memory has been also deteriorating. He did not know the address of his house. He also was tangential and was getting off the topic during the evaluation. He was unable to understand process, communicate, or appreciate. The information was given in regards to his medical condition and placement. PAST PSYCHIATRIC HISTORY: No known history of psychiatric condition as he never seen a psychiatrist. However, per his , he has a history of mental illness. PAST MEDICAL HISTORY: The patient denies any medical history. However, according to him, he does not have any medical issues. MEDICATIONS: He denies taking any medications. ALLERGIES: No known drug allergies. SUBSTANCE ABUSE HISTORY: The patient denies any history of illicit drug use or alcohol. Nonsmoker. SOCIAL HISTORY: The patient is . It is unclear whether he lives with his or alone. MENTAL STATUS EXAMINATION: The patient is alert and oriented times self and place. Mood was labile. Affect was blunted, congruent with mood and appropriate. Thought process was tangential. Thought content, positive for delusions. Concentration, memory, and attention was impaired. He needed recurrent redirection throughout the evaluation. Insight and judgment non-existent. ASSESSMENT: [place] I Dementia with behavioral disturbance. [place] II Deferred. [place] III Electrolyte imbalance. [place] IV Low to moderate. [place] V Global assessment of functioning is 20. PLAN: 1. The patient will be started on as needed lorazepam. 2. We will start the patient on olanzapine 5 mg at bedtime. 3. The patient lacks capacity to make any medical decisions or any decision in regards to his placement. The patient may not leave alone, he is unable to care for self. He lacks capacity to make any decisions for his medical condition or placement. Jerrell Kaufman M.D. DR: MACKENZIE JOB#: [id number] CC:
[2016-10-05 04:00] VITALS: BP 129/61
[2016-10-05 07:17] LABS: BASOPHILS % (AUTO) 1.8 % (0.0-2.0); EOSINOPHILS % (AUTO) 3.4 % (0.0-3.0); LYMPHOCYTES % (AUTO) 28.5 % (20.0-45.0); MEAN CORPUSCULAR HEMOGLOBIN 29.6 PG (27.0-31.0); MEAN CORPUSCULAR HGB CONC 32.7 G/DL (32.0-36.0); MEAN CORPUSCULAR VOLUME 91 FL (80-99); MEAN PLATELET VOLUME 8.6 FL (6.5-10.1); MONOCYTES % (AUTO) 14.8 % (1.0-10.0); NEUTROPHILS % (AUTO) 51.4 % (45.0-75.0); PLATELET COUNT 182 K/UL (150-450); RED BLOOD COUNT 4.66 M/UL (4.70-6.10); RED CELL DISTRIBUTION WIDTH 13.7 % (11.6-14.8); WHITE BLOOD COUNT 4.8 K/UL (4.8-10.8)
[2016-10-05 07:25] LABS: ANION GAP 9 (5-15); CALCIUM 8.8 mg/dL (8.6-10.2); CARBON DIOXIDE 27 mEQ/L (20-30); CHLORIDE 105 mEQ/L (98-107); CREATININE 0.8 mg/dL (0.7-1.2); HEMOLYSIS 9; POTASSIUM 4.1 mEQ/L (3.4-4.9); SODIUM 141 mEQ/L (135-145)
[2016-10-05 07:43] VITALS: BP 139/72
[2016-10-05] MEDS: Heparin 5000 units/ml inj SUBQ SCH ×2 (09:21→20:55)
[2016-10-05] MEDS: Cefepime HCl 2 GM in NS 110 ML IV SCH (11:05)
[2016-10-05 11:24] VITALS: BP 125/65
--- NOTE | 2016-10-05 11:48 | Internal Med Progress Note ---
Subjective Date of Service: Oct 05, 2016 Physician Name Rashid Ferrell Attending Physician Hussain Fischer MD Current Medications Medications (Trade) Dose Ordered Sig/Edith Route PRN Reason Start Time Stop Time Status Last Admin Dose Admin Acetaminophen (Tylenol) 650 mg Q4H PRN ORAL T>100.5 09/30/16 07:15 10/30/16 07:14 Cefepime HCl 2 gm/ Sodium Chloride 110 ml @ 220 mls/hr Q24H IV 10/02/16 11:00 10/07/16 10:59 10/05/16 11:05 Heparin Sodium (Porcine) (Heparin 5000 units/ml) 5,000 units EVERY 12 HOURS SUBQ 09/30/16 09:00 10/30/16 08:59 10/05/16 09:21 Lorazepam (Ativan) 1 mg Q4H PRN ORAL For Anxiety 10/04/16 16:45 10/11/16 16:44 Morphine Sulfate (Morphine Sulfate) 2 mg Q4H PRN IVP Moderate Pain (Pain Scale 4-6) 09/30/16 07:15 10/07/16 07:14 Nitroglycerin (Ntg) 0.4 mg Q5MIN X 3 DOSES PRN SL Prn Chest Pain 09/30/16 07:30 10/30/16 07:29 Olanzapine (ZyPREXA) 5 mg BEDTIME ORAL 10/05/16 21:00 11/04/16 20:59 Ondansetron HCl (Zofran) 4 mg Q6H PRN IVP Nausea & Vomiting 09/30/16 07:15 10/30/16 07:14 Polyethylene Glycol (Miralax) 17 gm DAILYPRN PRN ORAL Constipation 09/30/16 07:15 10/30/16 07:14 Temazepam (Restoril) 15 mg HSPRN PRN ORAL Insomnia 09/30/16 21:00 10/07/16 20:59 10/04/16 21:34 Vancomycin HCl 1 ea 1 ea DAILY PRN MISC . 09/30/16 07:30 10/30/16 07:29 Vancomycin HCl/ Dextrose (Vancomycin/D5W) 275 ml @ 183.708 mls/hr Q24H IVPB 10/02/16 11:00 10/07/16 10:59 10/04/16 12:06 Allergies: Coded Allergies: No Known Allergies (Unverified , 09/29/16) ROS Limited/Unobtainable: No Constitutional: Reports: no symptoms HEENT: Reports: no symptoms Cardiovascular: Reports: no symptoms Respiratory: Reports: no symptoms Gastrointestinal/Abdominal: Reports: no symptoms Genitourinary: Reports: no symptoms Neurologic/Psychiatric: Reports: no symptoms Subjective 76 YO M admitted with syncope and altered mental status. Cover for Int Doyle-Dr Fischer. Objective Last Vital Signs Date Time Temp Pulse Resp B/P Pulse Ox O2 Delivery O2 Flow Rate FiO2 10/05/16 11:24 98.2 72 19 125/65 98 Room Air 10/05/16 07:40 21 Laboratory Tests Test 10/05/16 05:15 White Blood Count 4.8 K/UL (4.8-10.8) Red Blood Count 4.66 M/UL (4.70-6.10) L Hemoglobin 13.8 G/DL (14.2-18.0) L Hematocrit 42.2 % (42.0-52.0) Mean Corpuscular Volume 91 FL (80-99) Mean Corpuscular Hemoglobin 29.6 PG (27.0-31.0) Mean Corpuscular Hemoglobin Concent 32.7 G/DL (32.0-36.0) Red Cell Distribution Width 13.7 % (11.6-14.8) Platelet Count 182 K/UL (150-450) Mean Platelet Volume 8.6 FL (6.5-10.1) Neutrophils (%) (Auto) 51.4 % (45.0-75.0) Lymphocytes (%) (Auto) 28.5 % (20.0-45.0) Monocytes (%) (Auto) 14.8 % (1.0-10.0) H Eosinophils (%) (Auto) 3.4 % (0.0-3.0) H Basophils (%) (Auto) 1.8 % (0.0-2.0) Sodium Level 141 mEQ/L (135-145) Potassium Level 4.1 mEQ/L (3.4-4.9) Chloride Level 105 mEQ/L (98-107) Carbon Dioxide Level 27 mEQ/L (20-30) Anion Gap 9 (5-15) Blood Urea Nitrogen 10 mg/dL (7-23) Creatinine 0.8 mg/dL (0.7-1.2) Estimat Glomerular Filtration Rate mL/min (>60) Glucose Level 83 mg/dL (74-106) Calcium Level 8.8 mg/dL (8.6-10.2) Intake and Output 10/04/16 10/05/16 18:59 06:59 Intake Total 1285.000 ml 600 ml Balance 1285.000 ml 600 ml Intake Oral 900 ml 600 ml IV Total 385.000 ml # Voids 3 2 Objective General: alert, cooperative, no distress, appears stated age Head: normocephalic, without obvious abnormality, atraumatic; Contusion left forehead Eyes: conjunctivae/corneas clear. PERRL, EOM's intact Throat: lips, mucosa, and tongue normal. MMM Neck: supple, symmetrical, trachea midline, and no JVD Lungs: clear to auscultation bilaterally Heart: regular rate and rhythm, S1, S2 normal, no murmur, click, rub or gallop Abdomen: soft, non-tender, non-distended, bowel sounds normal; no masses or organomegaly Extremities: extremities normal, atraumatic, no cyanosis or edema Pulses: 2+ and symmetric Skin: skin color, texture, turgor normal; no rashes or lesions Neurologic: grossly normal, no focal deficits Assessment/Plan Problem List: (1) Altered mental status Assessment & Plan: ?sepsis? Cultures negative so far. Continue cefepime and vanco. (2) Myalgia (3) Contusion of forehead Assessment & Plan: CT brain=no acute hemorrhage or infarct. Await Psychiatric consult?psychosis?-see social work note. (4) Generalized weakness (5) Hypokalemia Assessment & Plan: Resolved Assessment/Plan Discharge planning: See psych note regarding Patient's lack of capacity for medical and placement decisions. RASHID FERRELL Oct 05, 2016 11:48
[2016-10-05] MEDS: Vancomycin 1gm in D5W 275ml IVPB SCH (12:28)
--- NOTE | 2016-10-05 15:18 | Pulmonology Progress Note ---
Assessment/Plan Problems: (1) Acute encephalopathy (2) Myalgia (3) Contusion of forehead Assessment/Plan pt/ot psych evaluation social service evaluation d/c planning family deosn't want him at home pending intermediate Subjective ROS Limited/Unobtainable: No Allergies: Coded Allergies: No Known Allergies (Unverified , 09/29/16) Objective Last 24 Hour Vital Signs Date Time Temp Pulse Resp B/P Pulse Ox O2 Delivery O2 Flow Rate FiO2 10/05/16 11:24 98.2 72 19 125/65 98 Room Air 10/05/16 07:43 97.7 74 19 139/72 99 Room Air 10/05/16 07:40 69 18 Room Air 21 10/05/16 04:00 97.5 54 18 129/61 99 Room Air 10/05/16 00:00 97.0 68 20 115/61 98 Room Air 10/04/16 20:00 97.0 77 20 140/72 99 Room Air 10/04/16 19:20 72 18 Room Air 21 10/04/16 15:59 97.9 80 15 141/61 99 Room Air Intake and Output 10/04/16 10/05/16 18:59 06:59 Intake Total 1285.000 ml 600 ml Balance 1285.000 ml 600 ml Intake Oral 900 ml 600 ml IV Total 385.000 ml # Voids 3 2 Objective Lines, tubes and drains: peripheral, HEENT: normocephalic, atraumatic Neck: non-tender Respiratory/Chest: chest wall non-tender Cardiovascular/Chest: normal peripheral pulses Abdomen: normal bowel sounds, feeding tube, other Genitourinary/Rectal: normal genital exam Extremities: normal range of motion, non-tender Laboratory Tests 10/05/16 05:15: White Blood Count 4.8, Red Blood Count 4.66L, Hemoglobin 13.8L, Hematocrit 42.2 , Mean Corpuscular Volume 91, Mean Corpuscular Hemoglobin 29.6, Mean Corpuscular Hemoglobin Concent 32.7, Red Cell Distribution Width 13.7, Platelet Count 182, Mean Platelet Volume 8.6, Neutrophils (%) (Auto) 51.4, Lymphocytes (% ) (Auto) 28.5, Monocytes (%) (Auto) 14.8H, Eosinophils (%) (Auto) 3.4H, Basophils (%) (Auto) 1.8, Sodium Level 141, Potassium Level 4.1, Chloride Level 105, Carbon Dioxide Level 27, Anion Gap 9, Blood Urea Nitrogen 10, Creatinine 0.8, Estimat Glomerular Filtration Rate , Glucose Level 83, Calcium Level 8.8 Current Medications Medications (Trade) Dose Ordered Sig/Edith Route PRN Reason Start Time Stop Time Status Last Admin Dose Admin Acetaminophen (Tylenol) 650 mg Q4H PRN ORAL T>100.5 09/30/16 07:15 10/30/16 07:14 Cefepime HCl 2 gm/ Sodium Chloride 110 ml @ 220 mls/hr Q24H IV 10/02/16 11:00 10/07/16 10:59 10/05/16 11:05 Heparin Sodium (Porcine) (Heparin 5000 units/ml) 5,000 units EVERY 12 HOURS SUBQ 09/30/16 09:00 10/30/16 08:59 10/05/16 09:21 Lorazepam (Ativan) 1 mg Q4H PRN ORAL For Anxiety 10/04/16 16:45 10/11/16 16:44 Morphine Sulfate (Morphine Sulfate) 2 mg Q4H PRN IVP Moderate Pain (Pain Scale 4-6) 09/30/16 07:15 10/07/16 07:14 Nitroglycerin (Ntg) 0.4 mg Q5MIN X 3 DOSES PRN SL Prn Chest Pain 09/30/16 07:30 10/30/16 07:29 Olanzapine (ZyPREXA) 5 mg BEDTIME ORAL 10/05/16 21:00 11/04/16 20:59 Ondansetron HCl (Zofran) 4 mg Q6H PRN IVP Nausea & Vomiting 09/30/16 07:15 10/30/16 07:14 Polyethylene Glycol (Miralax) 17 gm DAILYPRN PRN ORAL Constipation 09/30/16 07:15 10/30/16 07:14 Temazepam (Restoril) 15 mg HSPRN PRN ORAL Insomnia 09/30/16 21:00 10/07/16 20:59 10/04/16 21:34 Vancomycin HCl 1 ea 1 ea DAILY PRN MISC . 09/30/16 07:30 10/30/16 07:29 Vancomycin HCl/ Dextrose (Vancomycin/D5W) 275 ml @ 183.708 mls/hr Q24H IVPB 10/02/16 11:00 10/07/16 10:59 10/05/16 12:28 RICHARD MACDONALD Oct 05, 2016 15:18
[2016-10-05 15:38] VITALS: BP 152/73
[2016-10-05 19:43] VITALS: BP_SYST 152; BP_SYST 162; BP_DIAS 106; BP_DIAS 73
--- NOTE | 2016-10-05 19:58 | Progress Note ---
SUBJECTIVE: The patient is still tangential, easily agitated, inappropriate, make sexual remarks towards the female staff. He is unable to understand process, communicate information given to him. He is also disoriented to place and situation he is in. His memory is impaired. MENTAL STATUS EXAMINATION: The patient is alert, oriented times self. Mood is labile. Affect is constricted. Congruent with mood. Thought process is tangential. Thought content positive for delusions. Cognition is impaired, specifically memory. Insight and judgment non-existent. ASSESSMENT: Dementia, psychotic disorder. The patient lacks capacity to make decisions in regards to his medical condition or placement. PLAN: 1. The patient may not leave alone and should be referred to a nursing facility. 2. The patient will be continued on current medication. 3. Provide the patient with reality orientation. Jerrell Kaufman M.D. DR: Juma JOB#: [id number] CC:
[2016-10-06] VITALS: BP 159/98
[2016-10-06 07:10] LABS: ANION GAP 11 (5-15); CALCIUM 9.1 mg/dL (8.6-10.2); CARBON DIOXIDE 28 mEQ/L (20-30); CHLORIDE 102 mEQ/L (98-107); CREATININE 0.9 mg/dL (0.7-1.2); HEMOLYSIS 8; POTASSIUM 3.9 mEQ/L (3.4-4.9); SODIUM 141 mEQ/L (135-145)
[2016-10-06 07:15] LABS: BASOPHILS % (AUTO) 1.5 % (0.0-2.0); EOSINOPHILS % (AUTO) 3.6 % (0.0-3.0); LYMPHOCYTES % (AUTO) 23.3 % (20.0-45.0); MEAN CORPUSCULAR HGB CONC 32.2 G/DL (32.0-36.0); MEAN CORPUSCULAR VOLUME 90 FL (80-99); MEAN PLATELET VOLUME 8.1 FL (6.5-10.1); NEUTROPHILS % (AUTO) 58.7 % (45.0-75.0); PLATELET COUNT 178 K/UL (150-450); RED CELL DISTRIBUTION WIDTH 13.5 % (11.6-14.8); WHITE BLOOD COUNT 4.2 K/UL (4.8-10.8)
[2016-10-06 08:21] VITALS: BP 152/79
[2016-10-06] MEDS: Heparin 5000 units/ml inj SUBQ SCH ×2 (08:55→20:51)
[2016-10-06 11:43] VITALS: BP 127/67
[2016-10-06] MEDS: Cefepime HCl 2 GM in NS 110 ML IV SCH (11:56)
[2016-10-06] MEDS: Vancomycin 1gm in D5W 275ml IVPB SCH (13:07)
--- NOTE | 2016-10-06 14:50 | Pulmonology Progress Note ---
Assessment/Plan Problems: (1) Acute encephalopathy (2) Myalgia (3) Contusion of forehead Assessment/Plan pt/ot psych evaluation social service evaluation family deosn't want him at home pending skilled nursing pt is a good candidate for an assisted living Subjective ROS Limited/Unobtainable: No Constitutional: Reports: no symptoms HEENT: Repors: no symptoms Allergies: Coded Allergies: No Known Allergies (Unverified , 09/29/16) Objective Last 24 Hour Vital Signs Date Time Temp Pulse Resp B/P Pulse Ox O2 Delivery O2 Flow Rate FiO2 10/06/16 11:43 97.0 73 20 127/67 99 Nasal Cannula 10/06/16 08:56 91 18 Room Air 21 10/06/16 08:21 97.2 70 19 152/79 94 Room Air 10/06/16 00:00 98.2 87 20 159/98 95 Room Air 10/05/16 19:43 98.0 67 20 152/73 97 Room Air 21 10/05/16 19:43 98.2 73 20 162/106 97 Room Air 10/05/16 15:38 98.0 67 20 152/73 97 Room Air Intake and Output 10/05/16 10/06/16 19:00 07:00 Intake Total 690 ml Balance 690 ml Intake Oral 690 ml # Voids 5 4 Objective Lines, tubes and drains: peripheral, HEENT: normocephalic, atraumatic Neck: non-tender Respiratory/Chest: chest wall non-tender Cardiovascular/Chest: normal peripheral pulses Abdomen: normal bowel sounds, feeding tube, other Genitourinary/Rectal: normal genital exam Extremities: normal range of motion, non-tender Laboratory Tests 10/06/16 04:50: White Blood Count 4.2L, Red Blood Count 5.00, Hemoglobin 14.5, Hematocrit 45.0, Mean Corpuscular Volume 90, Mean Corpuscular Hemoglobin 29.0, Mean Corpuscular Hemoglobin Concent 32.2, Red Cell Distribution Width 13.5, Platelet Count 178, Mean Platelet Volume 8.1, Neutrophils (%) (Auto) 58.7, Lymphocytes (%) (Auto) 23.3, Monocytes (%) (Auto) 13.0H, Eosinophils (%) (Auto) 3.6H, Basophils (%) ( Auto) 1.5, Sodium Level 141, Potassium Level 3.9, Chloride Level 102, Carbon Dioxide Level 28, Anion Gap 11, Blood Urea Nitrogen 8, Creatinine 0.9, Estimat Glomerular Filtration Rate , Glucose Level 81, Calcium Level 9.1 Current Medications Medications (Trade) Dose Ordered Sig/Edith Route PRN Reason Start Time Stop Time Status Last Admin Dose Admin Acetaminophen (Tylenol) 650 mg Q4H PRN ORAL T>100.5 09/30/16 07:15 10/30/16 07:14 Cefepime HCl 2 gm/ Sodium Chloride 110 ml @ 220 mls/hr Q24H IV 10/02/16 11:00 10/07/16 10:59 10/06/16 11:56 Heparin Sodium (Porcine) (Heparin 5000 units/ml) 5,000 units EVERY 12 HOURS SUBQ 09/30/16 09:00 10/30/16 08:59 10/06/16 08:55 Lorazepam (Ativan) 1 mg Q4H PRN ORAL For Anxiety 10/04/16 16:45 10/11/16 16:44 Morphine Sulfate (Morphine Sulfate) 2 mg Q4H PRN IVP Moderate Pain (Pain Scale 4-6) 09/30/16 07:15 10/07/16 07:14 Nitroglycerin (Ntg) 0.4 mg Q5MIN X 3 DOSES PRN SL Prn Chest Pain 09/30/16 07:30 10/30/16 07:29 Olanzapine (ZyPREXA) 5 mg BEDTIME ORAL 10/05/16 21:00 11/04/16 20:59 10/05/16 20:54 Ondansetron HCl (Zofran) 4 mg Q6H PRN IVP Nausea & Vomiting 09/30/16 07:15 10/30/16 07:14 Polyethylene Glycol (Miralax) 17 gm DAILYPRN PRN ORAL Constipation 09/30/16 07:15 10/30/16 07:14 Temazepam (Restoril) 15 mg HSPRN PRN ORAL Insomnia 09/30/16 21:00 10/07/16 20:59 10/04/16 21:34 Vancomycin HCl 1 ea 1 ea DAILY PRN MISC . 09/30/16 07:30 10/30/16 07:29 Vancomycin HCl/ Dextrose (Vancomycin/D5W) 275 ml @ 183.708 mls/hr Q24H IVPB 10/02/16 11:00 10/07/16 10:59 10/06/16 13:07 RICHARD MACDONALD Oct 06, 2016 14:50
[2016-10-06 16:00] VITALS: BP 142/61
--- NOTE | 2016-10-06 17:33 | Internal Med Progress Note ---
Subjective Date of Service: Oct 06, 2016 Physician Name Allen Ferrell Attending Physician Hussain Fischer MD Current Medications Medications (Trade) Dose Ordered Sig/Edith Route PRN Reason Start Time Stop Time Status Last Admin Dose Admin Acetaminophen (Tylenol) 650 mg Q4H PRN ORAL T>100.5 09/30/16 07:15 10/30/16 07:14 Divalproex Sodium (Depakote ER) 500 mg BEDTIME ORAL 10/06/16 21:00 11/05/16 20:59 Heparin Sodium (Porcine) (Heparin 5000 units/ml) 5,000 units EVERY 12 HOURS SUBQ 09/30/16 09:00 10/30/16 08:59 10/06/16 08:55 Lorazepam (Ativan) 1 mg Q4H PRN ORAL For Anxiety 10/04/16 16:45 10/11/16 16:44 Morphine Sulfate (Morphine Sulfate) 2 mg Q4H PRN IVP Moderate Pain (Pain Scale 4-6) 09/30/16 07:15 10/07/16 07:14 Nitroglycerin (Ntg) 0.4 mg Q5MIN X 3 DOSES PRN SL Prn Chest Pain 09/30/16 07:30 10/30/16 07:29 Olanzapine (ZyPREXA) 5 mg BEDTIME ORAL 10/05/16 21:00 11/04/16 20:59 10/05/16 20:54 Ondansetron HCl (Zofran) 4 mg Q6H PRN IVP Nausea & Vomiting 09/30/16 07:15 10/30/16 07:14 Polyethylene Glycol (Miralax) 17 gm DAILYPRN PRN ORAL Constipation 09/30/16 07:15 10/30/16 07:14 Temazepam (Restoril) 15 mg HSPRN PRN ORAL Insomnia 09/30/16 21:00 10/07/16 20:59 10/04/16 21:34 Allergies: Coded Allergies: No Known Allergies (Unverified , 09/29/16) ROS Limited/Unobtainable: Yes Subjective 76 YO M admitted with syncope and altered mental status. Cover for Int Med-Dr Fischer. Await acceptance to [facility] nursing [facility]. Objective Last Vital Signs Date Time Temp Pulse Resp B/P Pulse Ox O2 Delivery O2 Flow Rate FiO2 10/06/16 16:00 97.9 67 20 142/61 100 Room Air 10/06/16 08:56 21 Laboratory Tests Test 10/06/16 04:50 White Blood Count 4.2 K/UL (4.8-10.8) L Red Blood Count 5.00 M/UL (4.70-6.10) Hemoglobin 14.5 G/DL (14.2-18.0) Hematocrit 45.0 % (42.0-52.0) Mean Corpuscular Volume 90 FL (80-99) Mean Corpuscular Hemoglobin 29.0 PG (27.0-31.0) Mean Corpuscular Hemoglobin Concent 32.2 G/DL (32.0-36.0) Red Cell Distribution Width 13.5 % (11.6-14.8) Platelet Count 178 K/UL (150-450) Mean Platelet Volume 8.1 FL (6.5-10.1) Neutrophils (%) (Auto) 58.7 % (45.0-75.0) Lymphocytes (%) (Auto) 23.3 % (20.0-45.0) Monocytes (%) (Auto) 13.0 % (1.0-10.0) H Eosinophils (%) (Auto) 3.6 % (0.0-3.0) H Basophils (%) (Auto) 1.5 % (0.0-2.0) Sodium Level 141 mEQ/L (135-145) Potassium Level 3.9 mEQ/L (3.4-4.9) Chloride Level 102 mEQ/L (98-107) Carbon Dioxide Level 28 mEQ/L (20-30) Anion Gap 11 (5-15) Blood Urea Nitrogen 8 mg/dL (7-23) Creatinine 0.9 mg/dL (0.7-1.2) Estimat Glomerular Filtration Rate mL/min (>60) Glucose Level 81 mg/dL (74-106) Calcium Level 9.1 mg/dL (8.6-10.2) Intake and Output 10/05/16 10/06/16 19:00 07:00 Intake Total 690 ml Balance 690 ml Intake Oral 690 ml # Voids 5 4 Objective General: alert, cooperative, no distress, appears stated age Head: normocephalic, without obvious abnormality, atraumatic; Contusion left forehead Eyes: conjunctivae/corneas clear. PERRL, EOM's intact Throat: lips, mucosa, and tongue normal. MMM Neck: supple, symmetrical, trachea midline, and no JVD Lungs: clear to auscultation bilaterally Heart: regular rate and rhythm, S1, S2 normal, no murmur, click, rub or gallop Abdomen: soft, non-tender, non-distended, bowel sounds normal; no masses or organomegaly Extremities: extremities normal, atraumatic, no cyanosis or edema Pulses: 2+ and symmetric Skin: skin color, texture, turgor normal; no rashes or lesions Neurologic: grossly normal, no focal deficits Assessment/Plan Problem List: (1) Altered mental status Assessment & Plan: ?sepsis? Cultures negative so far. Continue cefepime and vanco. (2) Myalgia (3) Contusion of forehead Assessment & Plan: CT brain=no acute hemorrhage or infarct. Await Psychiatric consult?psychosis?-see social work note. (4) Generalized weakness (5) Hypokalemia Assessment & Plan: Resolved Status: stable Assessment/Plan Discharge planning: See psych note regarding Patient's lack of capacity for medical and placement decisions. Await acceptance at [facility]. ALLEN FERRELL Oct 06, 2016 17:33
[2016-10-06 20:00] VITALS: BP 138/74
[2016-10-06] MEDS ORDERED: Tubing IV Secondary IV ONE (20:32)
[2016-10-06] MEDS: Depakote ER 500mg tab ORAL SCH (20:50)
--- NOTE | 2016-10-06 21:28 | Progress Note ---
DATE: 10/06/2016 SUBJECTIVE: The patient is presenting with disorganized speech and behavior, inappropriate and easily agitated. He has been disinhibited and making sexual remarks. The patient is also disorganized. He is unable to understand process, communicate, information given to him in regards to his medical condition, or placement. He lacks capacity to make decisions. MENTAL STATUS EXAMINATION: Alert and oriented times self. Mood is euthymic and too elevated. Affect is expansive. He is at times. Thought process is tangential. Thought content, positive for delusions. Cognition is impaired. Insight and judgment is impaired. ASSESSMENT: 1. Dementia. 2. Psychotic disorder. PLAN: 1. We will continue the patient on olanzapine 5 mg h.s. Start the patient on Depakote ER 500 mg h.s. 2. We will continue to follow and readjust the medications. Jerrell Kaufman M.D. DR: CLYDE JOB#: [id number] CC:
[2016-10-07 00:05] VITALS: BP 138/70
[2016-10-07 04:20] VITALS: BP 142/71
[2016-10-07 06:31] LABS: BASOPHILS % (AUTO) 1.4 % (0.0-2.0); EOSINOPHILS % (AUTO) 4.4 % (0.0-3.0); LYMPHOCYTES % (AUTO) 26.5 % (20.0-45.0); MEAN CORPUSCULAR HEMOGLOBIN 29.2 PG (27.0-31.0); MEAN CORPUSCULAR HGB CONC 31.9 G/DL (32.0-36.0); MEAN CORPUSCULAR VOLUME 92 FL (80-99); MEAN PLATELET VOLUME 7.6 FL (6.5-10.1); MONOCYTES % (AUTO) 13.9 % (1.0-10.0); NEUTROPHILS % (AUTO) 53.8 % (45.0-75.0); PLATELET COUNT 174 K/UL (150-450); RED BLOOD COUNT 5.13 M/UL (4.70-6.10); RED CELL DISTRIBUTION WIDTH 13.8 % (11.6-14.8); WHITE BLOOD COUNT 4.9 K/UL (4.8-10.8)
[2016-10-07 06:49] LABS: ANION GAP 7 (5-15); CALCIUM 9.1 mg/dL (8.6-10.2); CARBON DIOXIDE 29 mEQ/L (20-30); CHLORIDE 105 mEQ/L (98-107); CREATININE 0.9 mg/dL (0.7-1.2); POTASSIUM 4.3 mEQ/L (3.4-4.9); SODIUM 141 mEQ/L (135-145)
[2016-10-07 06:56] LABS: CHOLESTEROL 132 mg/dL (< 200); CHOLESTEROL/HDL RATIO 2.6 (3.3-4.4); HEMOLYSIS 4; LDL CHOLESTEROL (CALC.) 61 mg/dL (60-99)
[2016-10-07 08:05] VITALS: BP 137/65
[2016-10-07] MEDS: Heparin 5000 units/ml inj SUBQ SCH ×2 (08:15→20:15)
--- NOTE | 2016-10-07 08:31 | Pulmonology Progress Note ---
Assessment/Plan Assessment/Plan ASSESSMENT acute encephalopathy on chronic dementia myalgia carotid stenosis hypokalemia - resolved dementia psychiatric disorder PLAN OF CARE MS floor s/p abx Rx ( blood and urine cx negative) fall precaution PT/OT Carotid Duplex with evidence of moderate stenosis common carotid artery subsequently CTA head done and revealed R ICA 50% stenosis add ASA lipid panel stable DVT prophylaxis psych eval noted patient lacks capacity to make informed decisions started on Zyprexa and Depakote SS follows need placement case discussed and evaluated by supervising physician Subjective Allergies: Coded Allergies: No Known Allergies (Unverified , 09/29/16) Subjective denies chest pain, SOB on RA sat stable awaiting for placement Objective Last 24 Hour Vital Signs Date Time Temp Pulse Resp B/P Pulse Ox O2 Delivery O2 Flow Rate FiO2 10/07/16 08:05 98.3 74 22 137/65 97 Room Air 10/07/16 04:20 97.0 53 20 142/71 100 Room Air 10/07/16 00:05 97.0 56 20 138/70 100 Room Air 10/06/16 20:02 73 18 Room Air 10/06/16 20:00 97.7 63 20 138/74 100 Room Air 10/06/16 16:00 97.9 67 20 142/61 100 Room Air 10/06/16 11:43 97.0 73 20 127/67 99 Nasal Cannula 10/06/16 08:56 91 18 Room Air 21 Intake and Output 10/06/16 10/07/16 19:00 07:00 Intake Total 385.000 ml Balance 385.000 ml IV Total 385.000 ml # Voids 1 # Bowel Movements 1 General Appearance: no acute distress, other - awake, alert, resposnive, confused and disoriented HEENT: normocephalic, atraumatic, anicteric, mucous membranes moist Respiratory/Chest: lungs clear, no respiratory distress, no accessory muscle use Cardiovascular: normal peripheral pulses, normal rate, no JVD Abdomen: normal bowel sounds, soft, non tender, non distended Extremities: no edema Neurologic/Psychiatric: alert, responsive - confused and disoriented Musculoskeletal: normal muscle bulk Laboratory Tests 10/07/16 05:35: White Blood Count 4.9, Red Blood Count 5.13, Hemoglobin 15.0, Hematocrit 47.0, Mean Corpuscular Volume 92, Mean Corpuscular Hemoglobin 29.2, Mean Corpuscular Hemoglobin Concent 31.9L, Red Cell Distribution Width 13.8, Platelet Count 174, Mean Platelet Volume 7.6, Neutrophils (%) (Auto) 53.8, Lymphocytes (%) (Auto) 26.5, Monocytes (%) (Auto) 13.9H, Eosinophils (%) (Auto) 4.4H, Basophils (%) ( Auto) 1.4, Sodium Level 141, Potassium Level 4.3, Chloride Level 105, Carbon Dioxide Level 29, Anion Gap 7, Blood Urea Nitrogen 9, Creatinine 0.9, Estimat Glomerular Filtration Rate , Glucose Level 76, Calcium Level 9.1, Triglycerides Level 106, Cholesterol Level 132, LDL Cholesterol 61, HDL Cholesterol 50, Cholesterol/HDL Ratio 2.6L Current Medications Medications (Trade) Dose Ordered Sig/Edith Route PRN Reason Start Time Stop Time Status Last Admin Dose Admin Acetaminophen (Tylenol) 650 mg Q4H PRN ORAL T>100.5 09/30/16 07:15 10/30/16 07:14 Divalproex Sodium (Depakote ER) 500 mg BEDTIME ORAL 10/06/16 21:00 11/05/16 20:59 10/06/16 20:50 Heparin Sodium (Porcine) (Heparin 5000 units/ml) 5,000 units EVERY 12 HOURS SUBQ 09/30/16 09:00 10/30/16 08:59 10/06/16 08:55 Lorazepam (Ativan) 1 mg Q4H PRN ORAL For Anxiety 10/04/16 16:45 10/11/16 16:44 Nitroglycerin (Ntg) 0.4 mg Q5MIN X 3 DOSES PRN SL Prn Chest Pain 09/30/16 07:30 10/30/16 07:29 Olanzapine (ZyPREXA) 5 mg BEDTIME ORAL 10/05/16 21:00 11/04/16 20:59 10/06/16 20:50 Ondansetron HCl (Zofran) 4 mg Q6H PRN IVP Nausea & Vomiting 09/30/16 07:15 10/30/16 07:14 Polyethylene Glycol (Miralax) 17 gm DAILYPRN PRN ORAL Constipation 09/30/16 07:15 10/30/16 07:14 Temazepam (Restoril) 15 mg HSPRN PRN ORAL Insomnia 09/30/16 21:00 10/07/16 20:59 10/04/16 21:34 [place] ([facility]),Melissa WASHBURN Oct 07, 2016 08:31
[2016-10-07] MEDS: Aspirin EC 81mg tab ORAL SCH (09:47)
[2016-10-07] MEDS ORDERED: NS 275ml ONE (09:59)
[2016-10-07] MEDS ORDERED: Tubing IV Secondary IV ONE (09:59)
[2016-10-07 11:36] VITALS: BP 162/78
[2016-10-07 16:01] VITALS: BP 133/66
--- NOTE | 2016-10-07 18:05 | Internal Med Progress Note ---
Subjective Date of Service: Oct 07, 2016 Physician Name Allen Ferrell Attending Physician Hussain Fischer MD Current Medications Medications (Trade) Dose Ordered Sig/Edith Route PRN Reason Start Time Stop Time Status Last Admin Dose Admin Acetaminophen (Tylenol) 650 mg Q4H PRN ORAL T>100.5 09/30/16 07:15 10/30/16 07:14 Aspirin (Ecotrin) 81 mg DAILY ORAL 10/07/16 09:00 11/06/16 08:59 10/07/16 09:47 Divalproex Sodium (Depakote ER) 500 mg BEDTIME ORAL 10/06/16 21:00 11/05/16 20:59 10/06/16 20:50 Heparin Sodium (Porcine) (Heparin 5000 units/ml) 5,000 units EVERY 12 HOURS SUBQ 09/30/16 09:00 10/30/16 08:59 10/06/16 08:55 Lorazepam (Ativan) 1 mg Q4H PRN ORAL For Anxiety 10/04/16 16:45 10/11/16 16:44 Nitroglycerin (Ntg) 0.4 mg Q5MIN X 3 DOSES PRN SL Prn Chest Pain 09/30/16 07:30 10/30/16 07:29 Olanzapine (ZyPREXA) 5 mg BEDTIME ORAL 10/05/16 21:00 11/04/16 20:59 10/06/16 20:50 Ondansetron HCl (Zofran) 4 mg Q6H PRN IVP Nausea & Vomiting 09/30/16 07:15 10/30/16 07:14 Polyethylene Glycol (Miralax) 17 gm DAILYPRN PRN ORAL Constipation 09/30/16 07:15 10/30/16 07:14 Temazepam (Restoril) 15 mg HSPRN PRN ORAL Insomnia 09/30/16 21:00 10/07/16 20:59 10/04/16 21:34 Allergies: Coded Allergies: No Known Allergies (Unverified , 09/29/16) ROS Limited/Unobtainable: Yes Subjective 76 YO M admitted with syncope and altered mental status. Cover for Int Med-Dr Fischer. Await acceptance to retirement facility. Objective Last Vital Signs Date Time Temp Pulse Resp B/P Pulse Ox O2 Delivery O2 Flow Rate FiO2 10/07/16 16:01 98.6 77 21 133/66 97 Room Air 10/06/16 08:56 21 Laboratory Tests Test 10/07/16 05:35 White Blood Count 4.9 K/UL (4.8-10.8) Red Blood Count 5.13 M/UL (4.70-6.10) Hemoglobin 15.0 G/DL (14.2-18.0) Hematocrit 47.0 % (42.0-52.0) Mean Corpuscular Volume 92 FL (80-99) Mean Corpuscular Hemoglobin 29.2 PG (27.0-31.0) Mean Corpuscular Hemoglobin Concent 31.9 G/DL (32.0-36.0) L Red Cell Distribution Width 13.8 % (11.6-14.8) Platelet Count 174 K/UL (150-450) Mean Platelet Volume 7.6 FL (6.5-10.1) Neutrophils (%) (Auto) 53.8 % (45.0-75.0) Lymphocytes (%) (Auto) 26.5 % (20.0-45.0) Monocytes (%) (Auto) 13.9 % (1.0-10.0) H Eosinophils (%) (Auto) 4.4 % (0.0-3.0) H Basophils (%) (Auto) 1.4 % (0.0-2.0) Sodium Level 141 mEQ/L (135-145) Potassium Level 4.3 mEQ/L (3.4-4.9) Chloride Level 105 mEQ/L (98-107) Carbon Dioxide Level 29 mEQ/L (20-30) Anion Gap 7 (5-15) Blood Urea Nitrogen 9 mg/dL (7-23) Creatinine 0.9 mg/dL (0.7-1.2) Estimat Glomerular Filtration Rate mL/min (>60) Glucose Level 76 mg/dL (74-106) Calcium Level 9.1 mg/dL (8.6-10.2) Triglycerides Level 106 mg/dL (< 150) Cholesterol Level 132 mg/dL (< 200) LDL Cholesterol 61 mg/dL (60-99) HDL Cholesterol 50 mg/dL (> 60) Cholesterol/HDL Ratio 2.6 (3.3-4.4) L Intake and Output 10/06/16 10/07/16 19:00 07:00 Intake Total 385.000 ml Balance 385.000 ml IV Total 385.000 ml # Voids 1 # Bowel Movements 1 Objective General: alert, cooperative, no distress, appears stated age Head: normocephalic, without obvious abnormality, atraumatic; Contusion left forehead Eyes: conjunctivae/corneas clear. PERRL, EOM's intact Throat: lips, mucosa, and tongue normal. MMM Neck: supple, symmetrical, trachea midline, and no JVD Lungs: clear to auscultation bilaterally Heart: regular rate and rhythm, S1, S2 normal, no murmur, click, rub or gallop Abdomen: soft, non-tender, non-distended, bowel sounds normal; no masses or organomegaly Extremities: extremities normal, atraumatic, no cyanosis or edema Pulses: 2+ and symmetric Skin: skin color, texture, turgor normal; no rashes or lesions Neurologic: grossly normal, no focal deficits Assessment/Plan Problem List: (1) Altered mental status Assessment & Plan: ?sepsis? Cultures negative so far. Continue cefepime and vanco. (2) Myalgia (3) Contusion of forehead Assessment & Plan: CT brain=no acute hemorrhage or infarct. Await Psychiatric consult?psychosis?-see social work note. (4) Generalized weakness (5) Hypokalemia Assessment & Plan: Resolved Status: stable Assessment/Plan Discharge planning: See psych note regarding Patient's lack of capacity for medical and placement decisions. Await acceptance at retirement facility- see case management note.. ALLEN FERRELL Oct 07, 2016 18:05
[2016-10-07 20:00] VITALS: BP 143/76
[2016-10-07] MEDS: Depakote ER 500mg tab ORAL SCH (20:14)
[2016-10-08] VITALS (7 sets, daily range): BP systolic 109–145; BP diastolic 53–76
[2016-10-08 07:59] LABS: BASOPHILS % (AUTO) 1.1 % (0.0-2.0); EOSINOPHILS % (AUTO) 1.3 % (0.0-3.0); MEAN CORPUSCULAR HEMOGLOBIN 29.3 PG (27.0-31.0); MEAN CORPUSCULAR HGB CONC 31.6 G/DL (32.0-36.0); MEAN CORPUSCULAR VOLUME 93 FL (80-99); MEAN PLATELET VOLUME 6.8 FL (6.5-10.1); MONOCYTES % (AUTO) 6.9 % (1.0-10.0); NEUTROPHILS % (AUTO) 75.6 % (45.0-75.0); PLATELET COUNT 170 K/UL (150-450); RED CELL DISTRIBUTION WIDTH 13.8 % (11.6-14.8); WHITE BLOOD COUNT 9.5 K/UL (4.8-10.8)
[2016-10-08 08:17] LABS: ANION GAP 12 (5-15); CALCIUM 9.6 mg/dL (8.6-10.2); CARBON DIOXIDE 29 mEQ/L (20-30); CHLORIDE 102 mEQ/L (98-107); CREATININE 1.1 mg/dL (0.7-1.2); HEMOLYSIS 140; SODIUM 143 mEQ/L (135-145)
[2016-10-08] MEDS: Aspirin EC 81mg tab ORAL SCH (08:17)
[2016-10-08] MEDS: Heparin 5000 units/ml inj SUBQ SCH ×2 (08:18→20:29)
--- NOTE | 2016-10-08 13:41 | Internal Med Progress Note ---
Subjective Date of Service: Oct 08, 2016 Physician Name Allen Ferrell Attending Physician Hussain Fischer MD Current Medications Medications (Trade) Dose Ordered Sig/Edith Route PRN Reason Start Time Stop Time Status Last Admin Dose Admin Acetaminophen (Tylenol) 650 mg Q4H PRN ORAL T>100.5 09/30/16 07:15 10/30/16 07:14 Aspirin (Ecotrin) 81 mg DAILY ORAL 10/07/16 09:00 11/06/16 08:59 10/08/16 08:17 Divalproex Sodium (Depakote ER) 500 mg BEDTIME ORAL 10/06/16 21:00 11/05/16 20:59 10/07/16 20:14 Heparin Sodium (Porcine) (Heparin 5000 units/ml) 5,000 units EVERY 12 HOURS SUBQ 09/30/16 09:00 10/30/16 08:59 10/07/16 20:15 Lorazepam (Ativan) 1 mg Q4H PRN ORAL For Anxiety 10/04/16 16:45 10/11/16 16:44 Nitroglycerin (Ntg) 0.4 mg Q5MIN X 3 DOSES PRN SL Prn Chest Pain 09/30/16 07:30 10/30/16 07:29 Olanzapine (ZyPREXA) 5 mg BEDTIME ORAL 10/05/16 21:00 11/04/16 20:59 10/07/16 20:14 Ondansetron HCl (Zofran) 4 mg Q6H PRN IVP Nausea & Vomiting 09/30/16 07:15 10/30/16 07:14 10/08/16 13:06 Polyethylene Glycol (Miralax) 17 gm DAILYPRN PRN ORAL Constipation 09/30/16 07:15 10/30/16 07:14 Allergies: Coded Allergies: No Known Allergies (Unverified , 09/29/16) ROS Limited/Unobtainable: Yes Subjective 76 YO M admitted with syncope and altered mental status. Cover for Int Med-Dr Fischer. Await acceptance to longterm facility. Objective Last Vital Signs Date Time Temp Pulse Resp B/P Pulse Ox O2 Delivery O2 Flow Rate FiO2 10/08/16 11:26 97.9 63 16 109/53 99 Room Air 10/06/16 08:56 21 Laboratory Tests Test 10/08/16 06:17 White Blood Count 9.5 K/UL (4.8-10.8) # Red Blood Count 5.20 M/UL (4.70-6.10) Hemoglobin 15.2 G/DL (14.2-18.0) Hematocrit 48.2 % (42.0-52.0) Mean Corpuscular Volume 93 FL (80-99) Mean Corpuscular Hemoglobin 29.3 PG (27.0-31.0) Mean Corpuscular Hemoglobin Concent 31.6 G/DL (32.0-36.0) L Red Cell Distribution Width 13.8 % (11.6-14.8) Platelet Count 170 K/UL (150-450) Mean Platelet Volume 6.8 FL (6.5-10.1) Neutrophils (%) (Auto) 75.6 % (45.0-75.0) H Lymphocytes (%) (Auto) 15.0 % (20.0-45.0) L Monocytes (%) (Auto) 6.9 % (1.0-10.0) Eosinophils (%) (Auto) 1.3 % (0.0-3.0) Basophils (%) (Auto) 1.1 % (0.0-2.0) Sodium Level 143 mEQ/L (135-145) Potassium Level 5.0 mEQ/L (3.4-4.9) H Chloride Level 102 mEQ/L (98-107) Carbon Dioxide Level 29 mEQ/L (20-30) Anion Gap 12 (5-15) Blood Urea Nitrogen 12 mg/dL (7-23) Creatinine 1.1 mg/dL (0.7-1.2) Estimat Glomerular Filtration Rate mL/min (>60) Glucose Level 71 mg/dL (74-106) L Calcium Level 9.6 mg/dL (8.6-10.2) Intake and Output 10/07/16 10/08/16 19:00 07:00 Intake Total 720 ml Balance 720 ml Intake Oral 720 ml # Voids 2 2 Objective General: alert, cooperative, no distress, appears stated age Head: normocephalic, without obvious abnormality, atraumatic; Contusion left forehead Eyes: conjunctivae/corneas clear. PERRL, EOM's intact Throat: lips, mucosa, and tongue normal. MMM Neck: supple, symmetrical, trachea midline, and no JVD Lungs: clear to auscultation bilaterally Heart: regular rate and rhythm, S1, S2 normal, no murmur, click, rub or gallop Abdomen: soft, non-tender, non-distended, bowel sounds normal; no masses or organomegaly Extremities: extremities normal, atraumatic, no cyanosis or edema Pulses: 2+ and symmetric Skin: skin color, texture, turgor normal; no rashes or lesions Neurologic: grossly normal, no focal deficits Assessment/Plan Problem List: (1) Altered mental status Assessment & Plan: ?sepsis? Cultures negative so far. Continue cefepime and vanco. (2) Myalgia (3) Contusion of forehead Assessment & Plan: CT brain=no acute hemorrhage or infarct. Await Psychiatric consult?psychosis?-see social work note. (4) Generalized weakness (5) Hypokalemia Assessment & Plan: Resolved Status: not improved Assessment/Plan Discharge planning: See psych note regarding Patient's lack of capacity for medical and placement decisions. Await acceptance at longterm facility- see case management note.. ALLEN FERRELL Oct 08, 2016 13:41
--- NOTE | 2016-10-08 14:38 | Pulmonology Progress Note ---
Assessment/Plan Assessment/Plan ASSESSMENT acute encephalopathy on chronic dementia myalgia carotid stenosis hypokalemia - resolved dementia psychiatric disorder PLAN OF CARE MS floor s/p abx Rx ( blood and urine cx negative) fall precaution PT/OT Carotid Duplex with evidence of moderate stenosis common carotid artery subsequently CTA head done and revealed R ICA 50% stenosis add ASA lipid panel stable DVT prophylaxis psych eval noted patient lacks capacity to make informed decisions started on Zyprexa and Depakote SS follows need placement case discussed and evaluated by supervising physician Subjective Allergies: Coded Allergies: No Known Allergies (Unverified , 09/29/16) Subjective denies chest pain, SOB on RA sat stable awaiting for placement Objective Last 24 Hour Vital Signs Date Time Temp Pulse Resp B/P Pulse Ox O2 Delivery O2 Flow Rate FiO2 10/08/16 11:26 97.9 63 16 109/53 99 Room Air 10/08/16 08:06 97.0 86 16 114/71 100 Room Air 10/08/16 08:01 66 18 Room Air 10/08/16 04:00 97.0 64 18 145/68 100 Room Air 10/08/16 00:00 98.5 66 18 130/71 100 Room Air 10/07/16 20:00 98.7 84 18 143/76 100 Room Air 10/07/16 19:26 85 18 Room Air 10/07/16 16:01 98.6 77 21 133/66 97 Room Air Intake and Output 10/07/16 10/08/16 19:00 07:00 Intake Total 720 ml Balance 720 ml Intake Oral 720 ml # Voids 2 2 Objective General Appearance: no acute distress, other - awake, alert, responsive, confused and disoriented HEENT: normocephalic, atraumatic, anicteric, mucous membranes moist Respiratory/Chest: lungs clear, no respiratory distress, no accessory muscle use Cardiovascular: normal peripheral pulses, normal rate, no JVD Abdomen: normal bowel sounds, soft, non tender, non distended Extremities: no edema Neurologic/Psychiatric: alert, responsive - confused and disoriented Musculoskeletal: normal muscle bulk Laboratory Tests 10/08/16 06:17: White Blood Count 9.5#, Red Blood Count 5.20, Hemoglobin 15.2, Hematocrit 48.2, Mean Corpuscular Volume 93, Mean Corpuscular Hemoglobin 29.3, Mean Corpuscular Hemoglobin Concent 31.6L, Red Cell Distribution Width 13.8, Platelet Count 170, Mean Platelet Volume 6.8, Neutrophils (%) (Auto) 75.6H, Lymphocytes (%) (Auto) 15.0L, Monocytes (%) (Auto) 6.9, Eosinophils (%) (Auto) 1.3, Basophils (%) (Auto ) 1.1, Sodium Level 143, Potassium Level 5.0H, Chloride Level 102, Carbon Dioxide Level 29, Anion Gap 12, Blood Urea Nitrogen 12, Creatinine 1.1, Estimat Glomerular Filtration Rate , Glucose Level 71L, Calcium Level 9.6 Current Medications Medications (Trade) Dose Ordered Sig/Edith Route PRN Reason Start Time Stop Time Status Last Admin Dose Admin Acetaminophen (Tylenol) 650 mg Q4H PRN ORAL T>100.5 09/30/16 07:15 10/30/16 07:14 Aspirin (Ecotrin) 81 mg DAILY ORAL 10/07/16 09:00 11/06/16 08:59 10/08/16 08:17 Divalproex Sodium (Depakote ER) 500 mg BEDTIME ORAL 10/06/16 21:00 11/05/16 20:59 10/07/16 20:14 Heparin Sodium (Porcine) (Heparin 5000 units/ml) 5,000 units EVERY 12 HOURS SUBQ 09/30/16 09:00 10/30/16 08:59 10/07/16 20:15 Lorazepam (Ativan) 1 mg Q4H PRN ORAL For Anxiety 10/04/16 16:45 10/11/16 16:44 Nitroglycerin (Ntg) 0.4 mg Q5MIN X 3 DOSES PRN SL Prn Chest Pain 09/30/16 07:30 10/30/16 07:29 Olanzapine (ZyPREXA) 5 mg BEDTIME ORAL 10/05/16 21:00 11/04/16 20:59 10/07/16 20:14 Ondansetron HCl (Zofran) 4 mg Q6H PRN IVP Nausea & Vomiting 09/30/16 07:15 10/30/16 07:14 10/08/16 13:06 Polyethylene Glycol (Miralax) 17 gm DAILYPRN PRN ORAL Constipation 09/30/16 07:15 10/30/16 07:14 Gentry Sahu)Melissa NP Oct 08, 2016 14:38
[2016-10-08] MEDS: Depakote ER 500mg tab ORAL SCH (20:23)
[2016-10-08] MEDS: D5 1/2NS 1,000 ML IV SCH (20:23)
[2016-10-09] VITALS (8 sets, daily range): BP systolic 94–157; BP diastolic 51–81
[2016-10-09 07:17] LABS: BASOPHILS % (AUTO) 1.3 % (0.0-2.0); LYMPHOCYTES % (AUTO) 26.6 % (20.0-45.0); MEAN CORPUSCULAR HEMOGLOBIN 29.7 PG (27.0-31.0); MEAN CORPUSCULAR HGB CONC 32.2 G/DL (32.0-36.0); MEAN CORPUSCULAR VOLUME 92 FL (80-99); MEAN PLATELET VOLUME 7.6 FL (6.5-10.1); PLATELET COUNT 173 K/UL (150-450); RED BLOOD COUNT 4.68 M/UL (4.70-6.10); RED CELL DISTRIBUTION WIDTH 13.7 % (11.6-14.8); WHITE BLOOD COUNT 5.4 K/UL (4.8-10.8)
[2016-10-09 07:32] LABS: ANION GAP 11 (5-15); CALCIUM 9.1 mg/dL (8.6-10.2); CARBON DIOXIDE 30 mEQ/L (20-30); CHLORIDE 102 mEQ/L (98-107); HEMOLYSIS 4; POTASSIUM 4.3 mEQ/L (3.4-4.9); SODIUM 143 mEQ/L (135-145)
[2016-10-09] MEDS: Heparin 5000 units/ml inj SUBQ SCH ×2 (08:54→20:50)
[2016-10-09] MEDS: Aspirin EC 81mg tab ORAL SCH (08:54)
[2016-10-09] MEDS: D5 1/2NS 1,000 ML IV SCH ×2 (08:54→20:47)
--- NOTE | 2016-10-09 10:32 | Pulmonology Progress Note ---
Assessment/Plan Assessment/Plan ASSESSMENT acute encephalopathy on chronic dementia myalgia carotid stenosis hypokalemia - resolved dementia psychiatric disorder PLAN OF CARE MS floor s/p abx Rx ( blood and urine cx negative) fall precaution PT/OT Carotid Duplex with evidence of moderate stenosis common carotid artery subsequently CTA head done and revealed R ICA 50% stenosis continue ASA lipid panel stable DVT prophylaxis psych eval noted patient lacks capacity to make informed decisions continue Zyprexa and Depakote SS follows needs placement case discussed and evaluated by supervising physician Subjective Allergies: Coded Allergies: No Known Allergies (Unverified , 09/29/16) Subjective denies chest pain, SOB on RA sat stable awaiting for placement Objective Last 24 Hour Vital Signs Date Time Temp Pulse Resp B/P Pulse Ox O2 Delivery O2 Flow Rate FiO2 10/09/16 08:00 97.6 62 18 131/70 98 Room Air 10/09/16 04:25 97.5 85 17 135/76 95 Room Air 10/09/16 00:00 98.1 72 19 130/70 99 Room Air 10/08/16 20:03 97.9 69 18 127/65 98 Room Air 10/08/16 16:25 129/76 10/08/16 15:28 97.7 92 15 142/68 97 Room Air 10/08/16 11:26 97.9 63 16 109/53 99 Room Air Intake and Output 10/08/16 10/09/16 19:00 07:00 Intake Total 50 ml 750 ml Balance 50 ml 750 ml Intake Oral 50 ml IV Total 750 ml # Voids 2 2 Objective General Appearance: no acute distress, other - awake, alert, responsive, confused and disoriented HEENT: normocephalic, atraumatic, anicteric, mucous membranes moist Respiratory/Chest: lungs clear, no respiratory distress, no accessory muscle use Cardiovascular: normal peripheral pulses, normal rate, no JVD Abdomen: normal bowel sounds, soft, non tender, non distended Extremities: no edema Neurologic/Psychiatric: alert, responsive - confused and disoriented Musculoskeletal: normal muscle bulk Laboratory Tests 10/09/16 06:35: White Blood Count 5.4, Red Blood Count 4.68L, Hemoglobin 13.9L, Hematocrit 43.1 , Mean Corpuscular Volume 92, Mean Corpuscular Hemoglobin 29.7, Mean Corpuscular Hemoglobin Concent 32.2, Red Cell Distribution Width 13.7, Platelet Count 173, Mean Platelet Volume 7.6, Neutrophils (%) (Auto) 55.0, Lymphocytes (% ) (Auto) 26.6, Monocytes (%) (Auto) 13.0H, Eosinophils (%) (Auto) 4.0H, Basophils (%) (Auto) 1.3, Sodium Level 143, Potassium Level 4.3, Chloride Level 102, Carbon Dioxide Level 30, Anion Gap 11, Blood Urea Nitrogen 11, Creatinine 1.0, Estimat Glomerular Filtration Rate , Glucose Level 98, Calcium Level 9.1 Current Medications Medications (Trade) Dose Ordered Sig/Edith Route PRN Reason Start Time Stop Time Status Last Admin Dose Admin Acetaminophen (Tylenol) 650 mg Q4H PRN ORAL T>100.5 09/30/16 07:15 10/30/16 07:14 Aspirin 81 mg 81 mg DAILY ORAL 10/07/16 09:00 11/06/16 08:59 10/09/16 08:54 Dextrose/Sodium Chloride (D5 0.45% NS) 1,000 ml @ 75 mls/hr [id number] IV 10/08/16 19:00 11/07/16 18:59 10/09/16 08:54 Divalproex Sodium (Depakote ER) 500 mg BEDTIME ORAL 10/06/16 21:00 11/05/16 20:59 10/08/16 20:23 Heparin Sodium (Porcine) (Heparin 5000 units/ml) 5,000 units EVERY 12 HOURS SUBQ 09/30/16 09:00 10/30/16 08:59 10/08/16 20:29 Lorazepam (Ativan) 1 mg Q4H PRN ORAL For Anxiety 10/04/16 16:45 10/11/16 16:44 Nitroglycerin (Ntg) 0.4 mg Q5MIN X 3 DOSES PRN SL Prn Chest Pain 09/30/16 07:30 10/30/16 07:29 Olanzapine (ZyPREXA) 5 mg BEDTIME ORAL 10/05/16 21:00 11/04/16 20:59 10/08/16 20:22 Ondansetron HCl (Zofran) 4 mg Q6H PRN IVP Nausea & Vomiting 09/30/16 07:15 10/30/16 07:14 10/08/16 13:06 Polyethylene Glycol (Miralax) 17 gm DAILYPRN PRN ORAL Constipation 09/30/16 07:15 10/30/16 07:14 Gentry MckayMelissa dove NP Oct 09, 2016 10:32
--- NOTE | 2016-10-09 14:20 | Internal Med Progress Note ---
Subjective Date of Service: Oct 09, 2016 Physician Name Allen Ferrell Attending Physician Hussain Fischer MD Current Medications Medications (Trade) Dose Ordered Sig/Edith Route PRN Reason Start Time Stop Time Status Last Admin Dose Admin Acetaminophen (Tylenol) 650 mg Q4H PRN ORAL T>100.5 09/30/16 07:15 10/30/16 07:14 Aspirin 81 mg 81 mg DAILY ORAL 10/07/16 09:00 11/06/16 08:59 10/09/16 08:54 Dextrose/Sodium Chloride (D5 0.45% NS) 1,000 ml @ 75 mls/hr [id number] IV 10/08/16 19:00 11/07/16 18:59 10/09/16 08:54 Divalproex Sodium (Depakote ER) 500 mg BEDTIME ORAL 10/06/16 21:00 11/05/16 20:59 10/08/16 20:23 Heparin Sodium (Porcine) (Heparin 5000 units/ml) 5,000 units EVERY 12 HOURS SUBQ 09/30/16 09:00 10/30/16 08:59 10/08/16 20:29 Lorazepam (Ativan) 1 mg Q4H PRN ORAL For Anxiety 10/04/16 16:45 10/11/16 16:44 Nitroglycerin (Ntg) 0.4 mg Q5MIN X 3 DOSES PRN SL Prn Chest Pain 09/30/16 07:30 10/30/16 07:29 Olanzapine (ZyPREXA) 5 mg BEDTIME ORAL 10/05/16 21:00 11/04/16 20:59 10/08/16 20:22 Ondansetron HCl (Zofran) 4 mg Q6H PRN IVP Nausea & Vomiting 09/30/16 07:15 10/30/16 07:14 10/08/16 13:06 Polyethylene Glycol (Miralax) 17 gm DAILYPRN PRN ORAL Constipation 09/30/16 07:15 10/30/16 07:14 Allergies: Coded Allergies: No Known Allergies (Unverified , 09/29/16) ROS Limited/Unobtainable: No Constitutional: Reports: no symptoms HEENT: Reports: no symptoms Cardiovascular: Reports: no symptoms Respiratory: Reports: no symptoms Gastrointestinal/Abdominal: Reports: nausea, vomiting Genitourinary: Reports: no symptoms Neurologic/Psychiatric: Reports: no symptoms Subjective 76 YO M admitted with syncope and altered mental status. Cover for Int Med-Dr Fischer. [facility] to [facility]. C/O nausea and vomiting. Objective Last Vital Signs Date Time Temp Pulse Resp B/P Pulse Ox O2 Delivery O2 Flow Rate FiO2 10/09/16 12:00 97.4 64 18 132/68 96 Room Air 10/06/16 08:56 21 Laboratory Tests Test 10/09/16 06:35 White Blood Count 5.4 K/UL (4.8-10.8) Red Blood Count 4.68 M/UL (4.70-6.10) L Hemoglobin 13.9 G/DL (14.2-18.0) L Hematocrit 43.1 % (42.0-52.0) Mean Corpuscular Volume 92 FL (80-99) Mean Corpuscular Hemoglobin 29.7 PG (27.0-31.0) Mean Corpuscular Hemoglobin Concent 32.2 G/DL (32.0-36.0) Red Cell Distribution Width 13.7 % (11.6-14.8) Platelet Count 173 K/UL (150-450) Mean Platelet Volume 7.6 FL (6.5-10.1) Neutrophils (%) (Auto) 55.0 % (45.0-75.0) Lymphocytes (%) (Auto) 26.6 % (20.0-45.0) Monocytes (%) (Auto) 13.0 % (1.0-10.0) H Eosinophils (%) (Auto) 4.0 % (0.0-3.0) H Basophils (%) (Auto) 1.3 % (0.0-2.0) Sodium Level 143 mEQ/L (135-145) Potassium Level 4.3 mEQ/L (3.4-4.9) Chloride Level 102 mEQ/L (98-107) Carbon Dioxide Level 30 mEQ/L (20-30) Anion Gap 11 (5-15) Blood Urea Nitrogen 11 mg/dL (7-23) Creatinine 1.0 mg/dL (0.7-1.2) Estimat Glomerular Filtration Rate mL/min (>60) Glucose Level 98 mg/dL (74-106) Calcium Level 9.1 mg/dL (8.6-10.2) Intake and Output 4/15/17 4/16/17 19:00 07:00 Intake Total 50 ml 750 ml Balance 50 ml 750 ml Intake Oral 50 ml IV Total 750 ml # Voids 2 2 Objective General: alert, cooperative, no distress, appears stated age Head: normocephalic, without obvious abnormality, atraumatic; Contusion left forehead Eyes: conjunctivae/corneas clear. PERRL, EOM's intact Throat: lips, mucosa, and tongue normal. MMM Neck: supple, symmetrical, trachea midline, and no JVD Lungs: clear to auscultation bilaterally Heart: regular rate and rhythm, S1, S2 normal, no murmur, click, rub or gallop Abdomen: soft, non-tender, non-distended, bowel sounds normal; no masses or organomegaly Extremities: extremities normal, atraumatic, no cyanosis or edema Pulses: 2+ and symmetric Skin: skin color, texture, turgor normal; no rashes or lesions Neurologic: grossly normal, no focal deficits Assessment/Plan Problem List: (1) Altered mental status Assessment & Plan: ?sepsis? Cultures negative so far. Continue cefepime and vanco. (2) Myalgia (3) Contusion of forehead Assessment & Plan: CT brain=no acute hemorrhage or infarct. See Psychiatric consult?psychosis?-see social work note. (4) Generalized weakness (5) Hypokalemia Assessment & Plan: Resolved (6) Nausea & vomiting Assessment & Plan: Await KUB result. Reglan IV prn Status: not improved Assessment/Plan Discharge planning: See psych note regarding Patient's lack of capacity for medical and placement decisions. [facility]- see case management note.. ALLEN FERRELL Oct 09, 2016 14:20
[2016-10-09] MEDS ORDERED: Metoclopramide 10mg/2ml Inj IVP PRN (14:30)
[2016-10-09] MEDS: Depakote ER 500mg tab ORAL SCH (20:47)
[2016-10-10 04:00] VITALS: BP 125/64
[2016-10-10 07:03] LABS: BASOPHILS % (AUTO) 0.7 % (0.0-2.0); EOSINOPHILS % (AUTO) 1.6 % (0.0-3.0); LYMPHOCYTES % (AUTO) 11.2 % (20.0-45.0); MEAN CORPUSCULAR HEMOGLOBIN 29.2 PG (27.0-31.0); MEAN CORPUSCULAR HGB CONC 31.8 G/DL (32.0-36.0); MEAN CORPUSCULAR VOLUME 92 FL (80-99); MEAN PLATELET VOLUME 8.2 FL (6.5-10.1); MONOCYTES % (AUTO) 10.6 % (1.0-10.0); PLATELET COUNT 192 K/UL (150-450); RED BLOOD COUNT 4.79 M/UL (4.70-6.10); RED CELL DISTRIBUTION WIDTH 13.9 % (11.6-14.8); WHITE BLOOD COUNT 8.9 K/UL (4.8-10.8)
[2016-10-10 07:06] LABS: ANION GAP 13 (5-15); CALCIUM 9.1 mg/dL (8.6-10.2); CARBON DIOXIDE 28 mEQ/L (20-30); CHLORIDE 103 mEQ/L (98-107); CREATININE 0.9 mg/dL (0.7-1.2); HEMOLYSIS 4; POTASSIUM 3.8 mEQ/L (3.4-4.9); SODIUM 144 mEQ/L (135-145)
[2016-10-10 07:46] VITALS: BP 156/86
[2016-10-10] MEDS: Aspirin EC 81mg tab ORAL SCH (08:55)
[2016-10-10] MEDS: Heparin 5000 units/ml inj SUBQ SCH ×2 (08:56→21:00)
--- NOTE | 2016-10-10 09:06 | Diagnostic Imaging Report ---
Indication: VOMITING. Technique: One view abdomen Findings: The bowel gas pattern is nonobstructive. There are clips in the right upper quadrant. Degenerative changes are noted in the spine. There appears to be a compression fracture of L1. Impression: Degenerative changes in the spine. Probable compression fracture of L1. Nonobstructive bowel gas pattern..
--- NOTE | 2016-10-10 10:00 | General Progress Note ---
Assessment/Plan Assessment/Plan Assessment - OBS - Encephalopathy - N/V - possibly related to GERD Recommendations - trial of PPI - elevate HOB - check labs - further w/u if symptoms persist Subjective Allergies: Coded Allergies: No Known Allergies (Unverified , 09/29/16) Objective Last 24 Hour Vital Signs Date Time Temp Pulse Resp B/P Pulse Ox O2 Delivery O2 Flow Rate FiO2 10/10/16 07:46 97.6 96 20 156/86 95 Room Air 10/10/16 04:00 97.2 71 18 125/64 99 Room Air 10/09/16 23:51 96.2 67 20 126/59 97 Room Air 10/09/16 22:20 87 20 157/81 Room Air 10/09/16 20:00 97.0 80 20 94/51 97 Room Air 10/09/16 16:00 97.6 64 18 134/66 96 Room Air 10/09/16 12:00 97.4 64 18 132/68 96 Room Air Intake and Output 10/09/16 10/10/16 19:00 07:00 Intake Total 835 ml 120 ml Output Total 310 ml Balance 525 ml 120 ml Intake Oral 10 ml 120 ml IV Total 825 ml Output Urine Total 300 ml Emesis 10 ml # Voids 2 2 Laboratory Tests 10/10/16 05:40: White Blood Count 8.9#, Red Blood Count 4.79, Hemoglobin 14.0L, Hematocrit 44.1 , Mean Corpuscular Volume 92, Mean Corpuscular Hemoglobin 29.2, Mean Corpuscular Hemoglobin Concent 31.8L, Red Cell Distribution Width 13.9, Platelet Count 192, Mean Platelet Volume 8.2, Neutrophils (%) (Auto) 76.0H, Lymphocytes (%) (Auto) 11.2L, Monocytes (%) (Auto) 10.6H, Eosinophils (%) (Auto ) 1.6, Basophils (%) (Auto) 0.7, Sodium Level 144, Potassium Level 3.8, Chloride Level 103, Carbon Dioxide Level 28, Anion Gap 13, Blood Urea Nitrogen 8 , Creatinine 0.9, Estimat Glomerular Filtration Rate , Glucose Level 92, Calcium Level 9.1 Height (Feet): 5 Height (Inches): 4.00 Weight (Pounds): 95 CHARLEY LARKIN Oct 10, 2016 10:00
[2016-10-10] MEDS: Pantoprazole Inj IVP SCH ×2 (10:45→21:00)
[2016-10-10] MEDS: D5 1/2NS 1,000 ML IV SCH (10:47)
--- NOTE | 2016-10-10 11:01 | Internal Med Progress Note ---
Subjective Date of Service: Oct 10, 2016 Physician Name Rashid Ferrell Attending Physician Hussain Fischer MD Current Medications Medications (Trade) Dose Ordered Sig/Edith Route PRN Reason Start Time Stop Time Status Last Admin Dose Admin Acetaminophen (Tylenol) 650 mg Q4H PRN ORAL T>100.5 09/30/16 07:15 10/30/16 07:14 Aspirin 81 mg 81 mg DAILY ORAL 10/07/16 09:00 11/06/16 08:59 10/10/16 08:55 Dextrose/Sodium Chloride (D5 0.45% NS) 1,000 ml @ 75 mls/hr [id number] IV 10/08/16 19:00 11/07/16 18:59 10/10/16 10:47 Divalproex Sodium (Depakote ER) 500 mg BEDTIME ORAL 10/06/16 21:00 11/05/16 20:59 10/09/16 20:47 Heparin Sodium (Porcine) (Heparin 5000 units/ml) 5,000 units EVERY 12 HOURS SUBQ 09/30/16 09:00 10/30/16 08:59 10/10/16 08:56 Lorazepam (Ativan) 1 mg Q4H PRN ORAL For Anxiety 10/04/16 16:45 10/11/16 16:44 Nitroglycerin (Ntg) 0.4 mg Q5MIN X 3 DOSES PRN SL Prn Chest Pain 09/30/16 07:30 10/30/16 07:29 Olanzapine (ZyPREXA) 5 mg BEDTIME ORAL 10/05/16 21:00 11/04/16 20:59 10/09/16 20:47 Ondansetron HCl (Zofran) 4 mg Q6H PRN IVP Nausea & Vomiting 09/30/16 07:15 10/30/16 07:14 10/08/16 13:06 Pantoprazole (Protonix) 40 mg EVERY 12 HOURS IVP 10/10/16 11:00 11/09/16 10:59 10/10/16 10:45 Polyethylene Glycol (Miralax) 17 gm DAILYPRN PRN ORAL Constipation 09/30/16 07:15 10/30/16 07:14 Allergies: Coded Allergies: No Known Allergies (Unverified , 09/29/16) ROS Limited/Unobtainable: No Constitutional: Reports: no symptoms HEENT: Reports: no symptoms Cardiovascular: Reports: no symptoms Respiratory: Reports: no symptoms Gastrointestinal/Abdominal: Reports: nausea, vomiting Genitourinary: Reports: no symptoms Neurologic/Psychiatric: Reports: no symptoms Subjective 76 YO M admitted with syncope and altered mental status. Cover for [facility] Fischer. Await acceptance to intermediate facility. C/O nausea and vomiting. Objective Last Vital Signs Date Time Temp Pulse Resp B/P Pulse Ox O2 Delivery O2 Flow Rate FiO2 10/10/16 07:46 97.6 96 20 156/86 95 Room Air 10/06/16 08:56 21 Laboratory Tests Test 10/10/16 05:40 White Blood Count 8.9 K/UL (4.8-10.8) # Red Blood Count 4.79 M/UL (4.70-6.10) Hemoglobin 14.0 G/DL (14.2-18.0) L Hematocrit 44.1 % (42.0-52.0) Mean Corpuscular Volume 92 FL (80-99) Mean Corpuscular Hemoglobin 29.2 PG (27.0-31.0) Mean Corpuscular Hemoglobin Concent 31.8 G/DL (32.0-36.0) L Red Cell Distribution Width 13.9 % (11.6-14.8) Platelet Count 192 K/UL (150-450) Mean Platelet Volume 8.2 FL (6.5-10.1) Neutrophils (%) (Auto) 76.0 % (45.0-75.0) H Lymphocytes (%) (Auto) 11.2 % (20.0-45.0) L Monocytes (%) (Auto) 10.6 % (1.0-10.0) H Eosinophils (%) (Auto) 1.6 % (0.0-3.0) Basophils (%) (Auto) 0.7 % (0.0-2.0) Sodium Level 144 mEQ/L (135-145) Potassium Level 3.8 mEQ/L (3.4-4.9) Chloride Level 103 mEQ/L (98-107) Carbon Dioxide Level 28 mEQ/L (20-30) Anion Gap 13 (5-15) Blood Urea Nitrogen 8 mg/dL (7-23) Creatinine 0.9 mg/dL (0.7-1.2) Estimat Glomerular Filtration Rate mL/min (>60) Glucose Level 92 mg/dL (74-106) Calcium Level 9.1 mg/dL (8.6-10.2) Intake and Output 10/09/16 10/10/16 19:00 07:00 Intake Total 835 ml 120 ml Output Total 310 ml Balance 525 ml 120 ml Intake Oral 10 ml 120 ml IV Total 825 ml Output Urine Total 300 ml Emesis 10 ml # Voids 2 2 Objective General: alert, cooperative, no distress, appears stated age Head: normocephalic, without obvious abnormality, atraumatic; Contusion left forehead Eyes: conjunctivae/corneas clear. PERRL, EOM's intact Throat: lips, mucosa, and tongue normal. MMM Neck: supple, symmetrical, trachea midline, and no JVD Lungs: clear to auscultation bilaterally Heart: regular rate and rhythm, S1, S2 normal, no murmur, click, rub or gallop Abdomen: soft, non-tender, non-distended, bowel sounds normal; no masses or organomegaly Extremities: extremities normal, atraumatic, no cyanosis or edema Pulses: 2+ and symmetric Skin: skin color, texture, turgor normal; no rashes or lesions Neurologic: grossly normal, no focal deficits Assessment/Plan Problem List: (1) Altered mental status Assessment & Plan: ?sepsis? Cultures negative so far. Continue cefepime and vanco. (2) Myalgia (3) Contusion of forehead Assessment & Plan: CT brain=no acute hemorrhage or infarct. See Psychiatric consult?psychosis?-see social work note. (4) Generalized weakness (5) Hypokalemia Assessment & Plan: Resolved (6) Nausea & vomiting Assessment & Plan: Await GI consult. Reglan discontinued per pharmacy-drug interaction Status: not improved Assessment/Plan Discharge planning: See psych note regarding Patient's lack of capacity for medical and placement decisions. Await acceptance at intermediate facility- see case management note.. RASHID FERRELL Oct 10, 2016 11:01
[2016-10-10 12:15] VITALS: BP 137/62
[2016-10-10 15:56] VITALS: BP 127/64
[2016-10-10 19:00] VITALS: BP 138/79
[2016-10-10] MEDS: Depakote ER 500mg tab ORAL SCH (21:00)
--- NOTE | 2016-10-10 22:08 | Pulmonology Progress Note ---
Assessment/Plan Problems: (1) Acute encephalopathy (2) Myalgia (3) Contusion of forehead Assessment/Plan pt/ot psych evaluation social service evaluation family deosn't want him at home pending long term pt is a good candidate for an assisted living Subjective ROS Limited/Unobtainable: No Constitutional: Reports: no symptoms HEENT: Repors: no symptoms Allergies: Coded Allergies: No Known Allergies (Unverified , 09/29/16) Objective Last 24 Hour Vital Signs Date Time Temp Pulse Resp B/P Pulse Ox O2 Delivery O2 Flow Rate FiO2 10/10/16 19:00 96.0 80 18 138/79 94 Room Air 10/10/16 15:56 97.8 99 20 127/64 95 Room Air 10/10/16 12:15 97.5 92 20 137/62 96 Room Air 10/10/16 07:46 97.6 96 20 156/86 95 Room Air 10/10/16 04:00 97.2 71 18 125/64 99 Room Air 10/09/16 23:51 96.2 67 20 126/59 97 Room Air 10/09/16 22:20 87 20 157/81 Room Air Intake and Output 10/09/16 10/10/16 19:00 07:00 Intake Total 835 ml 120 ml Output Total 310 ml Balance 525 ml 120 ml Intake Oral 10 ml 120 ml IV Total 825 ml Output Urine Total 300 ml Emesis 10 ml # Voids 2 2 Objective Lines, tubes and drains: peripheral, HEENT: normocephalic, atraumatic Neck: non-tender Respiratory/Chest: chest wall non-tender Cardiovascular/Chest: normal peripheral pulses Abdomen: normal bowel sounds, feeding tube, other Genitourinary/Rectal: normal genital exam Extremities: normal range of motion, non-tender Laboratory Tests 10/10/16 05:40: White Blood Count 8.9#, Red Blood Count 4.79, Hemoglobin 14.0L, Hematocrit 44.1 , Mean Corpuscular Volume 92, Mean Corpuscular Hemoglobin 29.2, Mean Corpuscular Hemoglobin Concent 31.8L, Red Cell Distribution Width 13.9, Platelet Count 192, Mean Platelet Volume 8.2, Neutrophils (%) (Auto) 76.0H, Lymphocytes (%) (Auto) 11.2L, Monocytes (%) (Auto) 10.6H, Eosinophils (%) (Auto ) 1.6, Basophils (%) (Auto) 0.7, Sodium Level 144, Potassium Level 3.8, Chloride Level 103, Carbon Dioxide Level 28, Anion Gap 13, Blood Urea Nitrogen 8 , Creatinine 0.9, Estimat Glomerular Filtration Rate , Glucose Level 92, Calcium Level 9.1 Current Medications Medications (Trade) Dose Ordered Sig/Edith Route PRN Reason Start Time Stop Time Status Last Admin Dose Admin Acetaminophen (Tylenol) 650 mg Q4H PRN ORAL T>100.5 09/30/16 07:15 10/30/16 07:14 Aspirin 81 mg 81 mg DAILY ORAL 10/07/16 09:00 11/06/16 08:59 10/10/16 08:55 Dextrose/Sodium Chloride (D5 0.45% NS) 1,000 ml @ 75 mls/hr [id number] IV 10/08/16 19:00 11/07/16 18:59 10/10/16 10:47 Divalproex Sodium (Depakote ER) 500 mg BEDTIME ORAL 10/06/16 21:00 11/05/16 20:59 10/10/16 21:00 Heparin Sodium (Porcine) (Heparin 5000 units/ml) 5,000 units EVERY 12 HOURS SUBQ 09/30/16 09:00 10/30/16 08:59 10/10/16 21:00 Lorazepam (Ativan) 1 mg Q4H PRN ORAL For Anxiety 10/04/16 16:45 10/11/16 16:44 Nitroglycerin (Ntg) 0.4 mg Q5MIN X 3 DOSES PRN SL Prn Chest Pain 09/30/16 07:30 10/30/16 07:29 Olanzapine (ZyPREXA) 5 mg BEDTIME ORAL 10/05/16 21:00 11/04/16 20:59 10/10/16 21:00 Ondansetron HCl (Zofran) 4 mg Q6H PRN IVP Nausea & Vomiting 09/30/16 07:15 10/30/16 07:14 10/08/16 13:06 Pantoprazole (Protonix) 40 mg EVERY 12 HOURS IVP 10/10/16 11:00 11/09/16 10:59 10/10/16 21:00 Polyethylene Glycol (Miralax) 17 gm DAILYPRN PRN ORAL Constipation 09/30/16 07:15 10/30/16 07:14 RICHARD MACDONALD Oct 10, 2016 22:07
--- NOTE | 2016-10-10 22:18 | Consultation ---
DATE OF CONSULTATION: 10/10/2016 CONSULTING PHYSICIAN: Rock Umana M.D. CHIEF COMPLAINT: I was asked to see this patient for evaluation of vomiting. HISTORY OF PRESENT ILLNESS: The patient is a 76-year-old man who appears to be somewhat confused, who was admitted with some multiple issues, especially his dementia and encephalopathy. The patient was noted to have some vomiting over the last few days . The patient was . His KUB was negative. The patient himself is a poor historian and merely complains of some epigastric abdominal discomfort as well as some retrosternal pyrosis. There has been no hematemesis or melena, and his labs are otherwise relatively unremarkable. PAST MEDICAL HISTORY: 1. History of some chronic dementia. 2. Chronic history of encephalopathy. FAMILY HISTORY: Not available. SOCIAL HISTORY: The patient lives in [facility], otherwise, unable to give any further explantations. REVIEW OF SYSTEMS: All negative. MEDICATIONS: See chart. PHYSICAL EXAMINATION: GENERAL: A pleasant man, seen in his room. HEENT: Normocephalic and atraumatic. Sclerae nonicteric. Oropharynx clear. NECK: Supple. CHEST: Clear to auscultation. CARDIOVASCULAR: Rhythm regular rate. ABDOMEN: Soft. EXTREMITIES: No edema. NEUROLOGIC: Nonfocal. LABORATORY DATA: Noted. ASSESSMENT: This patient presents with nausea and vomiting of unclear etiology. There is no other information from the patient to direct the therapy, although he does complain of retrosternal pyrosis and epigastric discomfort; therefore, gastroesophageal reflux disease is high in differential. Other option will be Helicobacter pylori infection, but this is an acute presentation. The patient should be treated with and the symptoms will be followed. If he has persistent nausea and vomiting, further evaluation with endoscopy and/or advanced imaging will be indicated. RECOMMENDATIONS: 1. Continue oral intake. 2. Proton pump inhibitor twice day. 3. Further recommendations to follow. Thank you for asking me to participate in the care of this patient. Rock Umana M.D. DR: ALAINA JOB#: [id number] CC:
[2016-10-11] VITALS (8 sets, daily range): BP systolic 100–136; BP diastolic 46–78
[2016-10-11] MEDS: D5 1/2NS 1,000 ML IV SCH ×2 (00:20→13:40)
[2016-10-11] MEDS ORDERED: Lidocaine 1% MPF 10mg/ml 5ml ONE ×2 (06:00→10:54)
[2016-10-11] MEDS ORDERED: Propofol 10mg/ml 20ml IV ONE ×2 (06:00→10:54)
[2016-10-11] MEDS ORDERED: NS 550ML IV ONE (07:00)
[2016-10-11 07:05] LABS: BASOPHILS % (AUTO) 0.4 % (0.0-2.0); EOSINOPHILS % (AUTO) 0.2 % (0.0-3.0); LYMPHOCYTES % (AUTO) 8.6 % (20.0-45.0); MEAN CORPUSCULAR HEMOGLOBIN 29.7 PG (27.0-31.0); MEAN CORPUSCULAR HGB CONC 32.5 G/DL (32.0-36.0); MEAN CORPUSCULAR VOLUME 91 FL (80-99); MEAN PLATELET VOLUME 7.5 FL (6.5-10.1); MONOCYTES % (AUTO) 6.9 % (1.0-10.0); NEUTROPHILS % (AUTO) 83.9 % (45.0-75.0); PLATELET COUNT 159 K/UL (150-450); RED BLOOD COUNT 4.45 M/UL (4.70-6.10); RED CELL DISTRIBUTION WIDTH 13.9 % (11.6-14.8); WHITE BLOOD COUNT 16.3 K/UL (4.8-10.8)
--- NOTE | 2016-10-11 07:09 | Anethesia Preoperative Eval ---
Anesthesia Pre-op PMH/ROS General Date of Evaluation: Oct 11, 2016 Anesthesiologist: Carroll ASA Score: ASA 3 Mallampati Score Class I : Soft palate, uvula, fauces, pillars visible Class II: Soft palate, uvula, fauces visible Class III: Soft palate, base of uvula visible Class IV: Only hard plate visible Mallampati Classification: Class II Surgeon: Dong Diagnosis: GI Bleed Surgical Procedure: EGD Anesthesia History: none Family History: no anesthesia problems Allergies: Coded Allergies: No Known Allergies (Unverified , 09/29/16) Medications: see eMAR Past Medical History Cardiovascular: Denies: CAD, HTN, DE, arrhythmia, other, valve dz Pulmonary: Denies: COPD, LARA, asthma, other Gastrointestinal/Genitourinary: Reports: GERD, Denies: CRI, ESRD, other Neurologic/Psychiatric: Reports: dementia, Denies: CVA, TIA, depression/anxiety, other Endocrine: Denies: DM, hypothyroidism, other, steroids HEENT: Denies: MORONGO (L), MORONGO (R), cataract (L), cataract (R), glaucoma, other Hematology/Immune: Reports: anemia, Denies: DVT, bleeding disorder, other Musculoskeletal/Integumentary: Denies: DDD, DJD, OA, RA, edema, other PSxH Narrative: Denies Anesthesia Pre-op Phys. Exam Physician Exam Last Vital Signs Date Time Temp Pulse Resp B/P Pulse Ox O2 Delivery O2 Flow Rate FiO2 10/11/16 00:00 97.2 77 18 136/78 Room Air 10/10/16 19:00 94 10/06/16 08:56 21 Constitutional: NAD Cardiovascular: RRR Respiratory: CTA Airway Exam Mallampati Score: Class II MO: limited ROM: limited Anesthesia Pre-op A/P Labs Hematology Test 10/11/16 04:35 White Blood Count Pending Red Blood Count Pending Hemoglobin Pending Hematocrit Pending Mean Corpuscular Volume Pending Mean Corpuscular Hemoglobin Pending Mean Corpuscular Hemoglobin Concent Pending Red Cell Distribution Width Pending Platelet Count Pending Mean Platelet Volume Pending Neutrophils (%) (Auto) Pending Lymphocytes (%) (Auto) Pending Monocytes (%) (Auto) Pending Eosinophils (%) (Auto) Pending Basophils (%) (Auto) Pending Chemistry Test 10/11/16 04:35 Sodium Level Pending Potassium Level Pending Chloride Level Pending Carbon Dioxide Level Pending Blood Urea Nitrogen Pending Creatinine Pending Estimat Glomerular Filtration Rate Pending Glucose Level Pending Calcium Level Pending Studies Pre-op Studies: EKG - sr Risk Assessment & Plan Assessment: ASA IIIE Plan: MAC Status Change Before Surgery: No Pre-Antibiotics Drug: N/A MORAIMA PHELAN M.D. Oct 11, 2016 07:09
[2016-10-11] MEDS ORDERED: LR 1000ml 1,000 ML IVLG SCH (07:11)
--- NOTE | 2016-10-11 07:11 | 48 Hour Post Anesthesia Eval ---
Post Anesthesia Evaluation Procedure: EGD Date of Evaluation: Oct 11, 2016 Blood Pressure Systolic: 119 0: 74 Pulse Rate: 62 Respiratory Rate: 17 O2 Sat by Pulse Oximetry: 99 Airway: patent Nausea: No Vomiting: No Pain Intensity: 0 Hydration Status: adequate Cardiopulmonary Status: at basline Mental Status/LOC: patient returned to baseline Post-Anesthesia Complications: 0 Follow-up care needed: ready to discharge MORAIMA PHELAN M.D. Oct 11, 2016 07:11
--- NOTE | 2016-10-11 07:11 | Pre-Procedure Note/Attestation ---
Pre-Procedure Note/Attestation Complete Prior to Procedure Planned Procedure: not applicable Procedure Narrative: egd Indications for Procedure Pre-Operative Diagnosis: vomiting Attestation I attest that I discussed the nature of the procedure; its benefits; risks and complications; and alternatives (and the risks and benefits of such alternatives ), prior to the procedure, with the patient (or the patient's legal special service representative). I attest that, if there was a reasonable possibility of needing a blood transfusion, the patient (or the patient's legal special service representative) was given the [facility] standardized written summary, pursuant to the [place] Blood Safety Act ([place] Health and Safety Code # 1645, as amended). I attest that I re-evaluated the patient just prior to the surgery and that there has been no change in the patient's H&P, except as documented below: CHARLEY LARKIN Oct 11, 2016 07:11
--- NOTE | 2016-10-11 07:11 | Immediate Post-Op Evaluation ---
Immediate Post-Op Evalulation Immediate Post-Op Evalulation Procedure: EGD Date of Evaluation: Oct 11, 2016 Time of Evaluation: 07:36 IV Fluids: 200 Blood Products: 0 Estimated Blood Loss: 0 Urinary Output: 0 Blood Pressure Systolic: 110 Blood Pressure Diastolic: 81 Pulse Rate: 61 Respiratory Rate: 17 O2 Sat by Pulse Oximetry: 99 Temperature (Fahrenheit): 96.9 Pain Score (1-10): 0 Nausea: No Vomiting: No Complications 0 Patient Status: awake, reacts, patent, none Hydration Status: adequate Drug: N/A MORAIMA PHELAN M.D. Oct 11, 2016 07:11
[2016-10-11] MEDS ORDERED: Labetalol 5mg/ml 20ml vial IV PRN (07:15)
[2016-10-11] MEDS ORDERED: DiphenhydrAMINE 50mg/ml Inj IVP PRN (07:15)
--- NOTE | 2016-10-11 07:37 | General Progress Note ---
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/GERD etiology - dilated to 12 mm - biopsied - 3-4 cm Hiatal hernia also seen Subjective Allergies: Coded Allergies: No Known Allergies (Unverified , 09/29/16) Subjective NPO for EGD swallow evaluation yesterday suggestive of obstructive esophageal process Objective Last 24 Hour Vital Signs Date Time Temp Pulse Resp B/P Pulse Ox O2 Delivery O2 Flow Rate FiO2 10/11/16 00:00 97.2 77 18 136/78 Room Air 10/10/16 19:00 96.0 80 18 138/79 94 Room Air 10/10/16 15:56 97.8 99 20 127/64 95 Room Air 10/10/16 12:15 97.5 92 20 137/62 96 Room Air 10/10/16 07:46 97.6 96 20 156/86 95 Room Air Intake and Output 10/10/16 10/11/16 19:00 07:00 Intake Total 840 ml 600 ml Output Total 100 ml Balance 740 ml 600 ml Intake Oral 240 ml IV Total 600 ml 600 ml Emesis 100 ml # Voids 3 Laboratory Tests 10/11/16 04:35: White Blood Count 16.3#H, Red Blood Count 4.45L, Hemoglobin 13.2L, Hematocrit 40.7L, Mean Corpuscular Volume 91, Mean Corpuscular Hemoglobin 29.7, Mean Corpuscular Hemoglobin Concent 32.5, Red Cell Distribution Width 13.9, Platelet Count 159, Mean Platelet Volume 7.5, Neutrophils (%) (Auto) 83.9H, Lymphocytes ( %) (Auto) 8.6L, Monocytes (%) (Auto) 6.9, Eosinophils (%) (Auto) 0.2, Basophils (%) (Auto) 0.4, Sodium Level [Pending], Potassium Level [Pending], Chloride Level [Pending], Carbon Dioxide Level [Pending], Blood Urea Nitrogen [Pending], Creatinine [Pending], Estimat Glomerular Filtration Rate [Pending], Glucose Level [Pending], Calcium Level [Pending] Height (Feet): 5 Height (Inches): 5.00 Weight (Pounds): 95 Objective Thin WM NCAT temporal wasting CTA RR soft ND NT no edema non focal CHARLEY LARKIN Oct 11, 2016 07:37
--- NOTE | 2016-10-11 07:39 | Endoscopy Procedure Note ---
Endoscopy Procedure Note Indication for Procedure: Vomit Procedures Performed: EGD Operative Findings/Diagnosis: peptic stricture Specimen: yes Pt Tolerated Procedure Well: Yes Estimated Blood Loss: none Anesthesiologist: see report Anesthesia: MAC Medication Given: see anesthesia record Implant(s) used?: No 50 yrs or older w/o bx or poly: Not Applicable 10yrs. F/U not recommended: Not Applicable If not recommended, why?: CHARLEY LARKIN Oct 11, 2016 07:39
--- NOTE | 2016-10-11 07:39 | Brief Operative Note ---
Immediate Post Operative Note Operative Note Chief Complaint: vomit Pre-op Diagnosis: vomiting Procedure: ED, Dil, Bx Post-op Diagnosis: ENDOSCOPY RESULT - distal esophageal stricture - appearance suggestive of peptic/GERD etiology - dilated to 12 mm - biopsied - 3-4 cm Hiatal hernia also seen Post-op Diagnosis: same as pre-op plus Surgeon: ml Anesthesiologist: see report Anesthesia: MAC Specimen: yes Complications: none Condition: stable Estimated Blood Loss: none Drains: none Implant(s) used?: No CHARLEY LARKIN Oct 11, 2016 07:39
[2016-10-11 07:48] LABS: ANION GAP 13 (5-15); CALCIUM 8.7 mg/dL (8.6-10.2); CARBON DIOXIDE 25 mEQ/L (20-30); CHLORIDE 102 mEQ/L (98-107); CREATININE 0.9 mg/dL (0.7-1.2); HEMOLYSIS 6; POTASSIUM 3.7 mEQ/L (3.4-4.9); SODIUM 140 mEQ/L (135-145)
[2016-10-11] MEDS: Pantoprazole Inj IVP SCH ×2 (08:17→22:19)
[2016-10-11] MEDS: Heparin 5000 units/ml inj SUBQ SCH ×2 (09:00→22:29)
[2016-10-11] MEDS: Aspirin EC 81mg tab ORAL SCH (09:00)
[2016-10-11] MEDS ORDERED: LR 1000ml ONE (10:54)
--- NOTE | 2016-10-11 17:16 | Internal Med Progress Note ---
Subjective Date of Service: Oct 11, 2016 Physician Name Allen Ferrell Attending Physician Hussain Fischer MD Current Medications Medications (Trade) Dose Ordered Sig/Edith Route PRN Reason Start Time Stop Time Status Last Admin Dose Admin Acetaminophen (Tylenol) 650 mg Q4H PRN ORAL T>100.5 09/30/16 07:15 10/30/16 07:14 Aspirin 81 mg 81 mg DAILY ORAL 10/07/16 09:00 11/06/16 08:59 10/10/16 08:55 Dextrose/Sodium Chloride (D5 0.45% NS) 1,000 ml @ 75 mls/hr [id number] IV 10/08/16 19:00 11/07/16 18:59 10/11/16 00:20 Divalproex Sodium (Depakote ER) 500 mg BEDTIME ORAL 10/06/16 21:00 11/05/16 20:59 10/10/16 21:00 Heparin Sodium (Porcine) (Heparin 5000 units/ml) 5,000 units EVERY 12 HOURS SUBQ 09/30/16 09:00 10/30/16 08:59 10/10/16 21:00 Nitroglycerin (Ntg) 0.4 mg Q5MIN X 3 DOSES PRN SL Prn Chest Pain 09/30/16 07:30 10/30/16 07:29 Olanzapine (ZyPREXA) 5 mg BEDTIME ORAL 10/05/16 21:00 11/04/16 20:59 10/10/16 21:00 Ondansetron HCl (Zofran) 4 mg Q6H PRN IVP Nausea & Vomiting 09/30/16 07:15 10/30/16 07:14 10/08/16 13:06 Pantoprazole (Protonix) 40 mg EVERY 12 HOURS IVP 10/10/16 11:00 11/09/16 10:59 10/11/16 08:17 Polyethylene Glycol (Miralax) 17 gm DAILYPRN PRN ORAL Constipation 09/30/16 07:15 10/30/16 07:14 Allergies: Coded Allergies: No Known Allergies (Unverified , 09/29/16) ROS Limited/Unobtainable: Yes Subjective 76 YO M admitted with syncope and altered mental status. Cover for Int Med-Dr Fischer. Await acceptance to correction facility. S/P endoscopy 10/11/16. Objective Last Vital Signs Date Time Temp Pulse Resp B/P Pulse Ox O2 Delivery O2 Flow Rate FiO2 10/11/16 16:00 98.6 97 20 126/70 98 Room Air 10/11/16 07:41 2.0 10/06/16 08:56 21 Laboratory Tests Test 10/11/16 04:35 White Blood Count 16.3 K/UL (4.8-10.8) #H Red Blood Count 4.45 M/UL (4.70-6.10) L Hemoglobin 13.2 G/DL (14.2-18.0) L Hematocrit 40.7 % (42.0-52.0) L Mean Corpuscular Volume 91 FL (80-99) Mean Corpuscular Hemoglobin 29.7 PG (27.0-31.0) Mean Corpuscular Hemoglobin Concent 32.5 G/DL (32.0-36.0) Red Cell Distribution Width 13.9 % (11.6-14.8) Platelet Count 159 K/UL (150-450) Mean Platelet Volume 7.5 FL (6.5-10.1) Neutrophils (%) (Auto) 83.9 % (45.0-75.0) H Lymphocytes (%) (Auto) 8.6 % (20.0-45.0) L Monocytes (%) (Auto) 6.9 % (1.0-10.0) Eosinophils (%) (Auto) 0.2 % (0.0-3.0) Basophils (%) (Auto) 0.4 % (0.0-2.0) Sodium Level 140 mEQ/L (135-145) Potassium Level 3.7 mEQ/L (3.4-4.9) Chloride Level 102 mEQ/L (98-107) Carbon Dioxide Level 25 mEQ/L (20-30) Anion Gap 13 (5-15) Blood Urea Nitrogen 10 mg/dL (7-23) Creatinine 0.9 mg/dL (0.7-1.2) Estimat Glomerular Filtration Rate mL/min (>60) Glucose Level 94 mg/dL (74-106) Calcium Level 8.7 mg/dL (8.6-10.2) Intake and Output 10/10/16 10/11/16 19:00 07:00 Intake Total 840 ml 600 ml Output Total 100 ml Balance 740 ml 600 ml Intake Oral 240 ml IV Total 600 ml 600 ml Emesis 100 ml # Voids 3 Objective General: alert, cooperative, no distress, appears stated age Head: normocephalic, without obvious abnormality, atraumatic; Contusion left forehead Eyes: conjunctivae/corneas clear. PERRL, EOM's intact Throat: lips, mucosa, and tongue normal. MMM Neck: supple, symmetrical, trachea midline, and no JVD Lungs: clear to auscultation bilaterally Heart: regular rate and rhythm, S1, S2 normal, no murmur, click, rub or gallop Abdomen: soft, non-tender, non-distended, bowel sounds normal; no masses or organomegaly Extremities: extremities normal, atraumatic, no cyanosis or edema Pulses: 2+ and symmetric Skin: skin color, texture, turgor normal; no rashes or lesions Neurologic: grossly normal, no focal deficits Assessment/Plan Problem List: (1) Altered mental status Assessment & Plan: ?sepsis? Cultures negative so far. Continue cefepime and vanco. (2) Myalgia (3) Contusion of forehead Assessment & Plan: CT brain=no acute hemorrhage or infarct. See Psychiatric consult?psychosis?-see social work note. (4) Generalized weakness (5) Hypokalemia Assessment & Plan: Resolved (6) Nausea & vomiting Assessment & Plan: See GI consult. S/P endoscopy on 10/11/16 Assessment/Plan Discharge planning: See psych note regarding Patient's lack of capacity for medical and placement decisions. Await acceptance at correction facility- see case management note.. ALLEN FERRELL Oct 11, 2016 17:16
--- NOTE | 2016-10-11 18:22 | Pulmonology Progress Note ---
Assessment/Plan Problems: (1) Acute encephalopathy (2) Myalgia (3) Contusion of forehead Assessment/Plan pt/ot psych evaluation social service evaluation family deosn't want him at home pending group home pt is a good candidate for an assisted living Subjective ROS Limited/Unobtainable: No Allergies: Coded Allergies: No Known Allergies (Unverified , 09/29/16) Objective Last 24 Hour Vital Signs Date Time Temp Pulse Resp B/P Pulse Ox O2 Delivery O2 Flow Rate FiO2 10/11/16 16:00 98.6 97 20 126/70 98 Room Air 10/11/16 11:40 98.0 72 20 127/63 98 Room Air 10/11/16 08:08 97.6 59 20 111/55 98 Room Air 10/11/16 07:51 62 17 99 10/11/16 07:50 61 17 99 10/11/16 07:48 58 20 105/57 100 Room Air 10/11/16 07:41 56 20 105/52 99 Nasal Cannula 2.0 10/11/16 07:36 96.9 59 20 104/56 99 Nasal Cannula 2.0 10/11/16 00:00 97.2 77 18 136/78 Room Air 10/10/16 19:00 96.0 80 18 138/79 94 Room Air Intake and Output 10/10/16 10/11/16 19:00 07:00 Intake Total 840 ml 600 ml Output Total 100 ml Balance 740 ml 600 ml Intake Oral 240 ml IV Total 600 ml 600 ml Emesis 100 ml # Voids 3 Objective Lines, tubes and drains: peripheral, HEENT: normocephalic, atraumatic Neck: non-tender Respiratory/Chest: chest wall non-tender Cardiovascular/Chest: normal peripheral pulses Abdomen: normal bowel sounds, feeding tube, other Genitourinary/Rectal: normal genital exam Extremities: normal range of motion, non-tender Laboratory Tests 10/11/16 04:35: White Blood Count 16.3#H, Red Blood Count 4.45L, Hemoglobin 13.2L, Hematocrit 40.7L, Mean Corpuscular Volume 91, Mean Corpuscular Hemoglobin 29.7, Mean Corpuscular Hemoglobin Concent 32.5, Red Cell Distribution Width 13.9, Platelet Count 159, Mean Platelet Volume 7.5, Neutrophils (%) (Auto) 83.9H, Lymphocytes ( %) (Auto) 8.6L, Monocytes (%) (Auto) 6.9, Eosinophils (%) (Auto) 0.2, Basophils (%) (Auto) 0.4, Sodium Level 140, Potassium Level 3.7, Chloride Level 102, Carbon Dioxide Level 25, Anion Gap 13, Blood Urea Nitrogen 10, Creatinine 0.9, Estimat Glomerular Filtration Rate , Glucose Level 94, Calcium Level 8.7 Current Medications Medications (Trade) Dose Ordered Sig/Edith Route PRN Reason Start Time Stop Time Status Last Admin Dose Admin Acetaminophen (Tylenol) 650 mg Q4H PRN ORAL T>100.5 09/30/16 07:15 10/30/16 07:14 Aspirin 81 mg 81 mg DAILY ORAL 10/07/16 09:00 11/06/16 08:59 10/10/16 08:55 Dextrose/Sodium Chloride (D5 0.45% NS) 1,000 ml @ 75 mls/hr [id number] IV 10/08/16 19:00 11/07/16 18:59 10/11/16 00:20 Divalproex Sodium (Depakote ER) 500 mg BEDTIME ORAL 10/06/16 21:00 11/05/16 20:59 10/10/16 21:00 Heparin Sodium (Porcine) (Heparin 5000 units/ml) 5,000 units EVERY 12 HOURS SUBQ 09/30/16 09:00 10/30/16 08:59 10/10/16 21:00 Nitroglycerin (Ntg) 0.4 mg Q5MIN X 3 DOSES PRN SL Prn Chest Pain 09/30/16 07:30 10/30/16 07:29 Olanzapine (ZyPREXA) 5 mg BEDTIME ORAL 10/05/16 21:00 11/04/16 20:59 10/10/16 21:00 Ondansetron HCl (Zofran) 4 mg Q6H PRN IVP Nausea & Vomiting 09/30/16 07:15 10/30/16 07:14 10/08/16 13:06 Pantoprazole (Protonix) 40 mg EVERY 12 HOURS IVP 10/10/16 11:00 11/09/16 10:59 10/11/16 08:17 Polyethylene Glycol (Miralax) 17 gm DAILYPRN PRN ORAL Constipation 09/30/16 07:15 10/30/16 07:14 RICHARD MACDONALD Oct 11, 2016 18:22
[2016-10-11] MEDS: Depakote ER 500mg tab ORAL SCH (22:19)
--- NOTE | 2016-10-11 22:58 | Progress Note ---
DATE: 10/11/2016 SUBJECTIVE: The patient's mental condition is unchanged since previous encounter. Continues to be disorganized, delusional, has impaired cognition. He is also disinhibited and has inappropriate behavior. MENTAL STATUS EXAMINATION: The patient is alert and oriented times self and place. Mood is neutral. Affect is constricted, congruent with mood. Thought process is concrete and tangential. Thought content, no suicidal or homicidal ideations. ASSESSMENT: 1. Dementia. 2. Psychotic disorder. PLAN: The patient will be continued on current medication. Provided him with reality orientation and supportive therapy. Jerrell Kaufman M.D. DR: ROBERTO JOB#: [id number] CC:
[2016-10-12] VITALS: BP 128/62
[2016-10-12] MEDS: D5 1/2NS 1,000 ML IV SCH ×2 (01:00→16:56)
[2016-10-12 04:00] VITALS: BP 135/67
[2016-10-12] MEDS: LORazepam 1mg tab ORAL PRN ×2 (04:16→22:01)
[2016-10-12 06:59] LABS: BASOPHILS % (AUTO) 0.5 % (0.0-2.0); EOSINOPHILS % (AUTO) 1.7 % (0.0-3.0); LYMPHOCYTES % (AUTO) 12.6 % (20.0-45.0); MEAN CORPUSCULAR HEMOGLOBIN 29.9 PG (27.0-31.0); MEAN CORPUSCULAR HGB CONC 32.9 G/DL (32.0-36.0); MEAN CORPUSCULAR VOLUME 91 FL (80-99); MEAN PLATELET VOLUME 7.4 FL (6.5-10.1); MONOCYTES % (AUTO) 9.6 % (1.0-10.0); NEUTROPHILS % (AUTO) 75.6 % (45.0-75.0); PLATELET COUNT 163 K/UL (150-450); RED BLOOD COUNT 4.33 M/UL (4.70-6.10); RED CELL DISTRIBUTION WIDTH 13.6 % (11.6-14.8); WHITE BLOOD COUNT 8.5 K/UL (4.8-10.8)
[2016-10-12 07:20] LABS: ANION GAP 11 (5-15); CALCIUM 8.9 mg/dL (8.6-10.2); CARBON DIOXIDE 30 mEQ/L (20-30); CHLORIDE 103 mEQ/L (98-107); CREATININE 0.9 mg/dL (0.7-1.2); HEMOLYSIS 5; POTASSIUM 3.4 mEQ/L (3.4-4.9); SODIUM 144 mEQ/L (135-145)
[2016-10-12 08:00] VITALS: BP 126/70
[2016-10-12] MEDS: Aspirin EC 81mg tab ORAL SCH (09:58)
[2016-10-12] MEDS: Pantoprazole Inj IVP SCH ×2 (09:59→22:14)
[2016-10-12] MEDS: Heparin 5000 units/ml inj SUBQ SCH ×2 (10:00→21:00)
--- NOTE | 2016-10-12 10:56 | Internal Med Progress Note ---
Subjective Date of Service: Oct 12, 2016 Physician Name Allen Ferrell Attending Physician Hussain Fischer MD Current Medications Medications (Trade) Dose Ordered Sig/Edith Route PRN Reason Start Time Stop Time Status Last Admin Dose Admin Acetaminophen (Tylenol) 650 mg Q4H PRN ORAL T>100.5 09/30/16 07:15 10/30/16 07:14 Aspirin 81 mg 81 mg DAILY ORAL 10/07/16 09:00 11/06/16 08:59 10/12/16 09:58 Dextrose/Sodium Chloride (D5 0.45% NS) 1,000 ml @ 75 mls/hr [id number] IV 10/08/16 19:00 11/07/16 18:59 10/12/16 01:00 Divalproex Sodium (Depakote ER) 500 mg BEDTIME ORAL 10/06/16 21:00 11/05/16 20:59 10/11/16 22:19 Heparin Sodium (Porcine) (Heparin 5000 units/ml) 5,000 units EVERY 12 HOURS SUBQ 09/30/16 09:00 10/30/16 08:59 10/12/16 10:00 Lorazepam (Ativan) 1 mg Q4H PRN ORAL For Anxiety 10/12/16 04:00 10/19/16 03:59 10/12/16 04:16 Nitroglycerin (Ntg) 0.4 mg Q5MIN X 3 DOSES PRN SL Prn Chest Pain 09/30/16 07:30 10/30/16 07:29 Olanzapine (ZyPREXA) 5 mg BEDTIME ORAL 10/05/16 21:00 11/04/16 20:59 10/11/16 22:19 Ondansetron HCl (Zofran) 4 mg Q6H PRN IVP Nausea & Vomiting 09/30/16 07:15 10/30/16 07:14 10/08/16 13:06 Pantoprazole (Protonix) 40 mg EVERY 12 HOURS IVP 10/10/16 11:00 11/09/16 10:59 10/12/16 09:59 Polyethylene Glycol (Miralax) 17 gm DAILYPRN PRN ORAL Constipation 09/30/16 07:15 10/30/16 07:14 Allergies: Coded Allergies: No Known Allergies (Unverified , 09/29/16) ROS Limited/Unobtainable: Yes Subjective 76 YO M admitted with syncope and altered mental status. Cover for Int Med-Dr Fischer. Await acceptance to [facility] facility. S/P endoscopy 10/11/16. Objective Last Vital Signs Date Time Temp Pulse Resp B/P Pulse Ox O2 Delivery O2 Flow Rate FiO2 10/12/16 04:00 96.4 66 20 135/67 96 Room Air 10/11/16 07:41 2.0 10/06/16 08:56 21 Laboratory Tests Test 10/12/16 06:00 White Blood Count 8.5 K/UL (4.8-10.8) Red Blood Count 4.33 M/UL (4.70-6.10) L Hemoglobin 13.0 G/DL (14.2-18.0) L Hematocrit 39.4 % (42.0-52.0) L Mean Corpuscular Volume 91 FL (80-99) Mean Corpuscular Hemoglobin 29.9 PG (27.0-31.0) Mean Corpuscular Hemoglobin Concent 32.9 G/DL (32.0-36.0) Red Cell Distribution Width 13.6 % (11.6-14.8) Platelet Count 163 K/UL (150-450) Mean Platelet Volume 7.4 FL (6.5-10.1) Neutrophils (%) (Auto) 75.6 % (45.0-75.0) H Lymphocytes (%) (Auto) 12.6 % (20.0-45.0) L Monocytes (%) (Auto) 9.6 % (1.0-10.0) Eosinophils (%) (Auto) 1.7 % (0.0-3.0) Basophils (%) (Auto) 0.5 % (0.0-2.0) Sodium Level 144 mEQ/L (135-145) Potassium Level 3.4 mEQ/L (3.4-4.9) Chloride Level 103 mEQ/L (98-107) Carbon Dioxide Level 30 mEQ/L (20-30) Anion Gap 11 (5-15) Blood Urea Nitrogen 8 mg/dL (7-23) Creatinine 0.9 mg/dL (0.7-1.2) Estimat Glomerular Filtration Rate mL/min (>60) Glucose Level 85 mg/dL (74-106) Calcium Level 8.9 mg/dL (8.6-10.2) Intake and Output 10/11/16 10/12/16 19:00 07:00 Intake Total 585 ml 1185 ml Balance 585 ml 1185 ml Intake Oral 360 ml 360 ml IV Total 225 ml 825 ml # Voids 3 5 Objective General: alert, cooperative, no distress, appears stated age Head: normocephalic, without obvious abnormality, atraumatic; Contusion left forehead Eyes: conjunctivae/corneas clear. PERRL, EOM's intact Throat: lips, mucosa, and tongue normal. MMM Neck: supple, symmetrical, trachea midline, and no JVD Lungs: clear to auscultation bilaterally Heart: regular rate and rhythm, S1, S2 normal, no murmur, click, rub or gallop Abdomen: soft, non-tender, non-distended, bowel sounds normal; no masses or organomegaly Extremities: extremities normal, atraumatic, no cyanosis or edema Pulses: 2+ and symmetric Skin: skin color, texture, turgor normal; no rashes or lesions Neurologic: grossly normal, no focal deficits Assessment/Plan Problem List: (1) Altered mental status Assessment & Plan: ?sepsis? Cultures negative so far. Continue cefepime and vanco. (2) Myalgia (3) Contusion of forehead Assessment & Plan: CT brain=no acute hemorrhage or infarct. See Psychiatric consult?psychosis?-see social work note. (4) Generalized weakness (5) Hypokalemia Assessment & Plan: Replace potassium PO (6) Nausea & vomiting Assessment & Plan: See GI consult. S/P endoscopy on 10/11/16 Assessment/Plan Discharge planning: See psych note regarding Patient's lack of capacity for medical and placement decisions. Await acceptance at [facility] facility- see case management note.. ALLEN FERRELL Oct 12, 2016 10:56
[2016-10-12] MEDS ORDERED: KCl 10% 20 mEq/15ml liquid NG ONE (11:15)
[2016-10-12 12:00] VITALS: BP 118/87
--- NOTE | 2016-10-12 14:49 | Diagnostic Imaging Report ---
Clinical Indication: DYSPHAGIA, distal esophageal stricture on endoscopy Technique: Patient given oral water soluble contrast. Spiral acquisitions obtained through the chest. No IV contrast utilized, per referring physician request. Multiplanar reconstructions generated. Total dose length product 23 mGycm. CTDIvol(s) the mGy. Dose reduction achieved using automated exposure control Comparison: None Findings:There is mild diffuse wall thickening of the mid to distal esophagus. No extraluminal gas is demonstrated. No contrast extravasation is demonstrated. There is a small sliding-type hiatal hernia which also demonstrates some wall thickening. No mediastinal or hilar mass or adenopathy. The thyroid demonstrates a 2 cm solid nodule the posterior right lower pole. Right lung demonstrates some posterior dependent atelectasis, as well as possibly reticular consolidative changes at the right posterior lung base. The left lung demonstrates lower lobe nodular groundglass and reticular opacities, as well as a small left pleural effusion. The bones are unremarkable except for mild degenerative proliferative changes of the thoracic spine. The upper abdominal anatomy demonstrates contrast in the colon, presumably from recent video swallowing study, and contrast in the stomach from the current exam. Multiple left renal cysts are demonstrated. Calcification is seen within segment 6 of the liver Impression: Mild distal esophageal wall thickening, presumably related to endoscopic findings of distal esophageal stricture. Nonspecific as regards etiology. Correlate with pathologic findings No mediastinal gas or extravasated contrast to suggest esophageal perforation Small hiatal hernia, consistent with reported endoscopic findings Left lower lobe groundglass and nodular opacities. Associated small pleural effusion. Findings are nonspecific, but raise concern for infection, including atypical infectious etiologies such as mycobacterial. Aspiration also a possibility, given recent operative history Right basilar dependent atelectasis and possibly some consolidative changes Right lobe liver calcification, consistent with old granulomatous disease. 2 cm right lower pole thyroid nodule. Consider further evaluation with ultrasound Incidental finding left renal cysts The CT scanner at [facility] is accredited by the [employer] and the scans are performed using protocols designed to limit radiation exposure to as low as reasonably achievable to attain images of sufficient resolution adequate for diagnostic evaluation.
--- NOTE | 2016-10-12 15:45 | Pulmonology Progress Note ---
Assessment/Plan Problems: (1) Acute encephalopathy (2) Myalgia (3) Contusion of forehead Assessment/Plan pt/ot psych evaluation social service evaluation family deosn't want him at home pending longterm pt is a good candidate for an assisted living Subjective ROS Limited/Unobtainable: No Constitutional: Reports: no symptoms HEENT: Repors: no symptoms Respiratory: Reports: no symptoms Allergies: Coded Allergies: No Known Allergies (Unverified , 09/29/16) Objective Last 24 Hour Vital Signs Date Time Temp Pulse Resp B/P Pulse Ox O2 Delivery O2 Flow Rate FiO2 10/12/16 12:00 98.1 85 20 118/87 98 Room Air 10/12/16 08:00 98.6 97 20 126/70 98 Room Air 10/12/16 04:00 96.4 66 20 135/67 96 Room Air 10/12/16 00:00 97.7 67 18 128/62 100 Room Air 10/11/16 19:00 97.5 80 18 100/46 99 Room Air 10/11/16 16:00 98.6 97 20 126/70 98 Room Air Intake and Output 10/11/16 10/12/16 19:00 07:00 Intake Total 585 ml 1185 ml Balance 585 ml 1185 ml Intake Oral 360 ml 360 ml IV Total 225 ml 825 ml # Voids 3 5 Objective Lines, tubes and drains: peripheral, HEENT: normocephalic, atraumatic Neck: non-tender Respiratory/Chest: chest wall non-tender Cardiovascular/Chest: normal peripheral pulses Abdomen: normal bowel sounds, feeding tube, other Genitourinary/Rectal: normal genital exam Extremities: normal range of motion, non-tender Laboratory Tests 10/12/16 06:00: White Blood Count 8.5, Red Blood Count 4.33L, Hemoglobin 13.0L, Hematocrit 39.4L , Mean Corpuscular Volume 91, Mean Corpuscular Hemoglobin 29.9, Mean Corpuscular Hemoglobin Concent 32.9, Red Cell Distribution Width 13.6, Platelet Count 163, Mean Platelet Volume 7.4, Neutrophils (%) (Auto) 75.6H, Lymphocytes ( %) (Auto) 12.6L, Monocytes (%) (Auto) 9.6, Eosinophils (%) (Auto) 1.7, Basophils (%) (Auto) 0.5, Sodium Level 144, Potassium Level 3.4, Chloride Level 103, Carbon Dioxide Level 30, Anion Gap 11, Blood Urea Nitrogen 8, Creatinine 0.9, Estimat Glomerular Filtration Rate , Glucose Level 85, Calcium Level 8.9 Current Medications Medications (Trade) Dose Ordered Sig/Edith Route PRN Reason Start Time Stop Time Status Last Admin Dose Admin Acetaminophen (Tylenol) 650 mg Q4H PRN ORAL T>100.5 09/30/16 07:15 10/30/16 07:14 Aspirin 81 mg 81 mg DAILY ORAL 10/07/16 09:00 11/06/16 08:59 10/12/16 09:58 Dextrose/Sodium Chloride (D5 0.45% NS) 1,000 ml @ 75 mls/hr [id number] IV 10/08/16 19:00 11/07/16 18:59 10/12/16 01:00 Divalproex Sodium (Depakote ER) 500 mg BEDTIME ORAL 10/06/16 21:00 11/05/16 20:59 10/11/16 22:19 Heparin Sodium (Porcine) (Heparin 5000 units/ml) 5,000 units EVERY 12 HOURS SUBQ 09/30/16 09:00 10/30/16 08:59 10/12/16 10:00 Lorazepam (Ativan) 1 mg Q4H PRN ORAL For Anxiety 10/12/16 04:00 10/19/16 03:59 10/12/16 04:16 Nitroglycerin (Ntg) 0.4 mg Q5MIN X 3 DOSES PRN SL Prn Chest Pain 09/30/16 07:30 10/30/16 07:29 Olanzapine (ZyPREXA) 5 mg BEDTIME ORAL 10/05/16 21:00 11/04/16 20:59 10/11/16 22:19 Ondansetron HCl (Zofran) 4 mg Q6H PRN IVP Nausea & Vomiting 09/30/16 07:15 10/30/16 07:14 10/08/16 13:06 Pantoprazole (Protonix) 40 mg EVERY 12 HOURS IVP 10/10/16 11:00 11/09/16 10:59 10/12/16 09:59 Polyethylene Glycol (Miralax) 17 gm DAILYPRN PRN ORAL Constipation 09/30/16 07:15 10/30/16 07:14 RICHARD MACDONALD Oct 12, 2016 15:45
[2016-10-12 16:00] VITALS: BP 141/66
[2016-10-12 20:07] VITALS: BP 141/58
[2016-10-12] MEDS: Depakote ER 500mg tab ORAL SCH (21:00)
--- NOTE | 2016-10-12 23:43 | General Progress Note ---
Assessment/Plan Assessment/Plan Assessment - OBS - Encephalopathy - N/V - distal esophageal stricture Recommendations - PPI - elevate HOB - check labs - po as tolerated - will need more endoscopic dilations in future ENDOSCOPY RESULT - distal esophageal stricture - appearance suggestive of peptic/GERD etiology - dilated to 12 mm - biopsied - 3-4 cm Hiatal hernia also seen Subjective Allergies: Coded Allergies: No Known Allergies (Unverified , 09/29/16) Subjective NPO for EGD swallow evaluation yesterday suggestive of obstructive esophageal process Objective Last 24 Hour Vital Signs Date Time Temp Pulse Resp B/P Pulse Ox O2 Delivery O2 Flow Rate FiO2 10/12/16 20:07 97.2 61 18 141/58 99 Room Air 10/12/16 16:00 96.7 55 20 141/66 98 Room Air 10/12/16 12:00 98.1 85 20 118/87 98 Room Air 10/12/16 08:00 98.6 97 20 126/70 98 Room Air 10/12/16 04:00 96.4 66 20 135/67 96 Room Air 10/12/16 00:00 97.7 67 18 128/62 100 Room Air Intake and Output 10/11/16 10/12/16 19:00 07:00 Intake Total 585 ml 1185 ml Balance 585 ml 1185 ml Intake Oral 360 ml 360 ml IV Total 225 ml 825 ml # Voids 3 5 Laboratory Tests 10/12/16 06:00: White Blood Count 8.5, Red Blood Count 4.33L, Hemoglobin 13.0L, Hematocrit 39.4L , Mean Corpuscular Volume 91, Mean Corpuscular Hemoglobin 29.9, Mean Corpuscular Hemoglobin Concent 32.9, Red Cell Distribution Width 13.6, Platelet Count 163, Mean Platelet Volume 7.4, Neutrophils (%) (Auto) 75.6H, Lymphocytes ( %) (Auto) 12.6L, Monocytes (%) (Auto) 9.6, Eosinophils (%) (Auto) 1.7, Basophils (%) (Auto) 0.5, Sodium Level 144, Potassium Level 3.4, Chloride Level 103, Carbon Dioxide Level 30, Anion Gap 11, Blood Urea Nitrogen 8, Creatinine 0.9, Estimat Glomerular Filtration Rate , Glucose Level 85, Calcium Level 8.9 Height (Feet): 5 Height (Inches): 5.00 Weight (Pounds): 95 Objective Thin WM NCAT temporal wasting CTA RR soft ND NT no edema non focal CHARLEY LARKIN Oct 12, 2016 23:43
[2016-10-13] VITALS (7 sets, daily range): BP systolic 135–161; BP diastolic 62–76
[2016-10-13] MEDS: D5 1/2NS 1,000 ML IV SCH ×2 (05:44→18:25)
[2016-10-13 07:23] LABS: BASOPHILS % (AUTO) 1.1 % (0.0-2.0); EOSINOPHILS % (AUTO) 2.7 % (0.0-3.0); LYMPHOCYTES % (AUTO) 21.3 % (20.0-45.0); MEAN CORPUSCULAR HEMOGLOBIN 29.5 PG (27.0-31.0); MEAN CORPUSCULAR HGB CONC 32.2 G/DL (32.0-36.0); MEAN CORPUSCULAR VOLUME 91 FL (80-99); MEAN PLATELET VOLUME 7.8 FL (6.5-10.1); MONOCYTES % (AUTO) 10.9 % (1.0-10.0); PLATELET COUNT 167 K/UL (150-450); RED BLOOD COUNT 4.27 M/UL (4.70-6.10); RED CELL DISTRIBUTION WIDTH 13.7 % (11.6-14.8); WHITE BLOOD COUNT 4.8 K/UL (4.8-10.8)
[2016-10-13 07:27] LABS: ANION GAP 10 (5-15); CARBON DIOXIDE 29 mEQ/L (20-30); CHLORIDE 105 mEQ/L (98-107); CREATININE 0.8 mg/dL (0.7-1.2); HEMOLYSIS 3; POTASSIUM 4.1 mEQ/L (3.4-4.9); SODIUM 144 mEQ/L (135-145)
[2016-10-13] MEDS: Aspirin EC 81mg tab ORAL SCH (09:30)
[2016-10-13] MEDS: Heparin 5000 units/ml inj SUBQ SCH ×2 (09:30→21:28)
[2016-10-13] MEDS: Pantoprazole Inj IVP SCH (10:54)
--- NOTE | 2016-10-13 15:58 | Diagnostic Imaging Report ---
Indications: Dysphagia Technique: Multiphasic barium dysphagia study was performed under fluoroscopic control with Mayra Cao speech pathologist. Cinegraphic images were obtained. Total fluoroscopy time: 235.3 sec Dose-area product: 0.26 mGy-m2 Findings: Comparison: None Oral and pharyngeal phases of swallowing demonstrate multiple mechanical abnormalities, as enumerated on speech pathology evaluation form. The patient demonstrates laryngeal penetration of thin, nectar, honey, and pudding thickness barium without aspiration, ejected. There is moderate barium coating of pharyngeal structures post swallowing.. Esophageal phase of swallowing demonstrates barium pooling with retrograde propagation below the level of the pharyngeal esophageal segment. IMPRESSION: Abnormal oropharyngeal mechanics with laryngeal penetration of multiple consistencies of barium, without aspiration Moderate post swallow pharyngeal residue Esophageal dysmotility with reversed peristalsis as described. Recommendation per speech pathology evaluation form.
--- NOTE | 2016-10-13 18:29 | Pulmonology Progress Note ---
Assessment/Plan Problems: (1) Acute encephalopathy (2) Myalgia (3) Contusion of forehead Assessment/Plan pt/ot psych evaluation social service evaluation family deosn't want him at home pending retirement Subjective ROS Limited/Unobtainable: No Constitutional: Reports: no symptoms HEENT: Repors: no symptoms Allergies: Coded Allergies: No Known Allergies (Unverified , 09/29/16) Objective Last 24 Hour Vital Signs Date Time Temp Pulse Resp B/P Pulse Ox O2 Delivery O2 Flow Rate FiO2 10/13/16 16:15 97.5 67 18 154/71 100 Room Air 10/13/16 12:01 97.4 64 19 161/73 100 Room Air 10/13/16 08:00 96.4 61 18 153/72 99 Room Air 10/13/16 04:00 97.0 52 18 135/67 98 Room Air 10/13/16 00:06 97.7 72 18 139/62 98 Room Air 10/12/16 20:07 97.2 61 18 141/58 99 Room Air Intake and Output 10/12/16 10/13/16 19:00 07:00 Intake Total 325 ml 885 ml Balance 325 ml 885 ml Intake Oral 250 ml IV Total 75 ml 885 ml # Voids 3 4 # Bowel Movements 1 Objective Lines, tubes and drains: peripheral, HEENT: normocephalic, atraumatic Neck: non-tender Respiratory/Chest: chest wall non-tender Cardiovascular/Chest: normal peripheral pulses Abdomen: normal bowel sounds, feeding tube, other Genitourinary/Rectal: normal genital exam Extremities: normal range of motion, non-tender Laboratory Tests 10/13/16 06:10: White Blood Count 4.8, Red Blood Count 4.27L, Hemoglobin 12.6L, Hematocrit 39.0L , Mean Corpuscular Volume 91, Mean Corpuscular Hemoglobin 29.5, Mean Corpuscular Hemoglobin Concent 32.2, Red Cell Distribution Width 13.7, Platelet Count 167, Mean Platelet Volume 7.8, Neutrophils (%) (Auto) 64.0, Lymphocytes (% ) (Auto) 21.3, Monocytes (%) (Auto) 10.9H, Eosinophils (%) (Auto) 2.7, Basophils (%) (Auto) 1.1, Sodium Level 144, Potassium Level 4.1, Chloride Level 105, Carbon Dioxide Level 29, Anion Gap 10, Blood Urea Nitrogen 5L, Creatinine 0.8, Estimat Glomerular Filtration Rate , Glucose Level 90, Calcium Level 9.0 Current Medications Medications (Trade) Dose Ordered Sig/Edith Route PRN Reason Start Time Stop Time Status Last Admin Dose Admin Acetaminophen (Tylenol) 650 mg Q4H PRN ORAL T>100.5 09/30/16 07:15 10/30/16 07:14 Aspirin 81 mg 81 mg DAILY ORAL 10/07/16 09:00 11/06/16 08:59 10/13/16 09:30 Dextrose/Sodium Chloride (D5 0.45% NS) 1,000 ml @ 75 mls/hr [id number] IV 10/08/16 19:00 11/07/16 18:59 10/13/16 18:25 Divalproex Sodium (Depakote Sprinkles) 500 mg BEDTIME ORAL 10/13/16 21:00 11/12/16 20:59 Heparin Sodium (Porcine) (Heparin 5000 units/ml) 5,000 units EVERY 12 HOURS SUBQ 09/30/16 09:00 10/30/16 08:59 10/13/16 09:30 Lorazepam (Ativan) 1 mg Q4H PRN ORAL For Anxiety 10/12/16 04:00 10/19/16 03:59 10/12/16 22:01 Nitroglycerin (Ntg) 0.4 mg Q5MIN X 3 DOSES PRN SL Prn Chest Pain 09/30/16 07:30 10/30/16 07:29 Olanzapine (ZyPREXA) 5 mg BEDTIME ORAL 10/05/16 21:00 11/04/16 20:59 10/12/16 22:01 Ondansetron HCl (Zofran) 4 mg Q6H PRN IVP Nausea & Vomiting 09/30/16 07:15 10/30/16 07:14 10/08/16 13:06 Pantoprazole (Protonix) 40 mg Q12HR ORAL 10/13/16 21:00 11/12/16 20:59 Polyethylene Glycol (Miralax) 17 gm DAILYPRN PRN ORAL Constipation 09/30/16 07:15 10/30/16 07:14 RICHARD MACDONALD Oct 13, 2016 18:29
--- NOTE | 2016-10-13 19:37 | Internal Med Progress Note ---
Subjective Date of Service: Oct 13, 2016 Physician Name Allen Ferrell Attending Physician Hussain Fischer MD Current Medications Medications (Trade) Dose Ordered Sig/Edith Route PRN Reason Start Time Stop Time Status Last Admin Dose Admin Acetaminophen (Tylenol) 650 mg Q4H PRN ORAL T>100.5 09/30/16 07:15 10/30/16 07:14 Aspirin 81 mg 81 mg DAILY ORAL 10/07/16 09:00 11/06/16 08:59 10/13/16 09:30 Dextrose/Sodium Chloride (D5 0.45% NS) 1,000 ml @ 75 mls/hr [id number] IV 10/08/16 19:00 11/07/16 18:59 10/13/16 18:25 Divalproex Sodium (Depakote Sprinkles) 500 mg BEDTIME ORAL 10/13/16 21:00 11/12/16 20:59 Heparin Sodium (Porcine) (Heparin 5000 units/ml) 5,000 units EVERY 12 HOURS SUBQ 09/30/16 09:00 10/30/16 08:59 10/13/16 09:30 Lorazepam (Ativan) 1 mg Q4H PRN ORAL For Anxiety 10/12/16 04:00 10/19/16 03:59 10/12/16 22:01 Nitroglycerin (Ntg) 0.4 mg Q5MIN X 3 DOSES PRN SL Prn Chest Pain 09/30/16 07:30 10/30/16 07:29 Olanzapine (ZyPREXA) 5 mg BEDTIME ORAL 10/05/16 21:00 11/04/16 20:59 10/12/16 22:01 Ondansetron HCl (Zofran) 4 mg Q6H PRN IVP Nausea & Vomiting 09/30/16 07:15 10/30/16 07:14 10/08/16 13:06 Pantoprazole (Protonix) 40 mg Q12HR ORAL 10/13/16 21:00 11/12/16 20:59 Polyethylene Glycol (Miralax) 17 gm DAILYPRN PRN ORAL Constipation 09/30/16 07:15 10/30/16 07:14 Allergies: Coded Allergies: No Known Allergies (Unverified , 09/29/16) ROS Limited/Unobtainable: Yes Subjective 76 YO M admitted with syncope and altered mental status. Cover for Int Med-Dr Fischer. Await acceptance to halfway facility. S/P endoscopy 10/11/16. Objective Last Vital Signs Date Time Temp Pulse Resp B/P Pulse Ox O2 Delivery O2 Flow Rate FiO2 10/13/16 16:15 97.5 67 18 154/71 100 Room Air 10/11/16 07:41 2.0 10/06/16 08:56 21 Laboratory Tests Test 10/13/16 06:10 White Blood Count 4.8 K/UL (4.8-10.8) Red Blood Count 4.27 M/UL (4.70-6.10) L Hemoglobin 12.6 G/DL (14.2-18.0) L Hematocrit 39.0 % (42.0-52.0) L Mean Corpuscular Volume 91 FL (80-99) Mean Corpuscular Hemoglobin 29.5 PG (27.0-31.0) Mean Corpuscular Hemoglobin Concent 32.2 G/DL (32.0-36.0) Red Cell Distribution Width 13.7 % (11.6-14.8) Platelet Count 167 K/UL (150-450) Mean Platelet Volume 7.8 FL (6.5-10.1) Neutrophils (%) (Auto) 64.0 % (45.0-75.0) Lymphocytes (%) (Auto) 21.3 % (20.0-45.0) Monocytes (%) (Auto) 10.9 % (1.0-10.0) H Eosinophils (%) (Auto) 2.7 % (0.0-3.0) Basophils (%) (Auto) 1.1 % (0.0-2.0) Sodium Level 144 mEQ/L (135-145) Potassium Level 4.1 mEQ/L (3.4-4.9) Chloride Level 105 mEQ/L (98-107) Carbon Dioxide Level 29 mEQ/L (20-30) Anion Gap 10 (5-15) Blood Urea Nitrogen 5 mg/dL (7-23) L Creatinine 0.8 mg/dL (0.7-1.2) Estimat Glomerular Filtration Rate mL/min (>60) Glucose Level 90 mg/dL (74-106) Calcium Level 9.0 mg/dL (8.6-10.2) Intake and Output 10/12/16 10/13/16 19:00 07:00 Intake Total 325 ml 885 ml Balance 325 ml 885 ml Intake Oral 250 ml IV Total 75 ml 885 ml # Voids 3 4 # Bowel Movements 1 Objective General: alert, cooperative, no distress, appears stated age Head: normocephalic, without obvious abnormality, atraumatic; Contusion left forehead Eyes: conjunctivae/corneas clear. PERRL, EOM's intact Throat: lips, mucosa, and tongue normal. MMM Neck: supple, symmetrical, trachea midline, and no JVD Lungs: clear to auscultation bilaterally Heart: regular rate and rhythm, S1, S2 normal, no murmur, click, rub or gallop Abdomen: soft, non-tender, non-distended, bowel sounds normal; no masses or organomegaly Extremities: extremities normal, atraumatic, no cyanosis or edema Pulses: 2+ and symmetric Skin: skin color, texture, turgor normal; no rashes or lesions Neurologic: grossly normal, no focal deficits Assessment/Plan Problem List: (1) Altered mental status Assessment & Plan: ?sepsis? Cultures negative so far. Continue cefepime and vanco. (2) Myalgia (3) Contusion of forehead Assessment & Plan: CT brain=no acute hemorrhage or infarct. See Psychiatric consult?psychosis?-see social work note. (4) Generalized weakness (5) Hypokalemia Assessment & Plan: Replace potassium PO (6) Nausea & vomiting Assessment & Plan: See GI consult. S/P endoscopy on 10/11/16 (7) Esophageal stricture Assessment & Plan: See GI note. Assessment/Plan Discharge planning: See psych note regarding Patient's lack of capacity for medical and placement decisions. Await acceptance at halfway facility- see case management note.. ALLEN FERRELL Oct 13, 2016 19:37
[2016-10-13] MEDS: Depakote 125mg Sprinkles ORAL SCH (21:27)
--- NOTE | 2016-10-13 22:42 | General Progress Note ---
Assessment/Plan Assessment/Plan Assessment - OBS - Encephalopathy - N/V - distal esophageal stricture Recommendations - PPI - elevate HOB - check labs - po as tolerated - will need more endoscopic dilations in future ENDOSCOPY RESULT - distal esophageal stricture - appearance suggestive of peptic/GERD etiology - dilated to 12 mm - biopsied - 3-4 cm Hiatal hernia also seen Subjective Allergies: Coded Allergies: No Known Allergies (Unverified , 09/29/16) Subjective tolerating liquids no vomiting diet advanced Objective Last 24 Hour Vital Signs Date Time Temp Pulse Resp B/P Pulse Ox O2 Delivery O2 Flow Rate FiO2 10/13/16 20:00 96.6 76 18 144/76 99 Room Air 10/13/16 16:15 97.5 67 18 154/71 100 Room Air 10/13/16 12:01 97.4 64 19 161/73 100 Room Air 10/13/16 08:00 96.4 61 18 153/72 99 Room Air 10/13/16 04:00 97.0 52 18 135/67 98 Room Air 10/13/16 00:06 97.7 72 18 139/62 98 Room Air Intake and Output 10/12/16 10/13/16 19:00 07:00 Intake Total 325 ml 885 ml Balance 325 ml 885 ml Intake Oral 250 ml IV Total 75 ml 885 ml # Voids 3 4 # Bowel Movements 1 Laboratory Tests 10/13/16 06:10: White Blood Count 4.8, Red Blood Count 4.27L, Hemoglobin 12.6L, Hematocrit 39.0L , Mean Corpuscular Volume 91, Mean Corpuscular Hemoglobin 29.5, Mean Corpuscular Hemoglobin Concent 32.2, Red Cell Distribution Width 13.7, Platelet Count 167, Mean Platelet Volume 7.8, Neutrophils (%) (Auto) 64.0, Lymphocytes (% ) (Auto) 21.3, Monocytes (%) (Auto) 10.9H, Eosinophils (%) (Auto) 2.7, Basophils (%) (Auto) 1.1, Sodium Level 144, Potassium Level 4.1, Chloride Level 105, Carbon Dioxide Level 29, Anion Gap 10, Blood Urea Nitrogen 5L, Creatinine 0.8, Estimat Glomerular Filtration Rate , Glucose Level 90, Calcium Level 9.0 Height (Feet): 5 Height (Inches): 5.00 Weight (Pounds): 95 Objective Thin WM NCAT temporal wasting CTA RR soft ND NT no edema non focal CHARLEY LARKIN Oct 13, 2016 22:42
[2016-10-14 04:00] VITALS: BP 132/64
[2016-10-14 07:22] LABS: BASOPHILS % (AUTO) 1.2 % (0.0-2.0); EOSINOPHILS % (AUTO) 3.2 % (0.0-3.0); LYMPHOCYTES % (AUTO) 28.5 % (20.0-45.0); MEAN CORPUSCULAR HEMOGLOBIN 29.8 PG (27.0-31.0); MEAN CORPUSCULAR HGB CONC 32.8 G/DL (32.0-36.0); MEAN CORPUSCULAR VOLUME 91 FL (80-99); MEAN PLATELET VOLUME 7.3 FL (6.5-10.1); MONOCYTES % (AUTO) 13.5 % (1.0-10.0); NEUTROPHILS % (AUTO) 53.7 % (45.0-75.0); PLATELET COUNT 169 K/UL (150-450); RED CELL DISTRIBUTION WIDTH 13.9 % (11.6-14.8); WHITE BLOOD COUNT 3.9 K/UL (4.8-10.8)
[2016-10-14 08:00] VITALS: BP 149/65
[2016-10-14] MEDS: Aspirin EC 81mg tab ORAL SCH (08:38)
[2016-10-14] MEDS: D5 1/2NS 1,000 ML IV SCH ×2 (08:38→21:40)
[2016-10-14] MEDS: Heparin 5000 units/ml inj SUBQ SCH ×2 (08:40→21:37)
[2016-10-14 11:53] VITALS: BP 142/68
[2016-10-14 15:53] VITALS: BP 144/74
--- NOTE | 2016-10-14 17:48 | Internal Med Progress Note ---
Subjective Date of Service: Oct 14, 2016 Physician Name Allen Ferrell Attending Physician Hussain Fischer MD Current Medications Medications (Trade) Dose Ordered Sig/Edith Route PRN Reason Start Time Stop Time Status Last Admin Dose Admin Acetaminophen (Tylenol) 650 mg Q4H PRN ORAL T>100.5 09/30/16 07:15 10/30/16 07:14 Aspirin 81 mg 81 mg DAILY ORAL 10/07/16 09:00 11/06/16 08:59 10/14/16 08:38 Dextrose/Sodium Chloride (D5 0.45% NS) 1,000 ml @ 75 mls/hr [id number] IV 10/08/16 19:00 11/07/16 18:59 10/14/16 08:38 Divalproex Sodium (Depakote Sprinkles) 500 mg BEDTIME ORAL 10/13/16 21:00 11/12/16 20:59 10/13/16 21:27 Heparin Sodium (Porcine) (Heparin 5000 units/ml) 5,000 units EVERY 12 HOURS SUBQ 09/30/16 09:00 10/30/16 08:59 10/14/16 08:40 Lorazepam (Ativan) 1 mg Q4H PRN ORAL For Anxiety 10/12/16 04:00 10/19/16 03:59 10/12/16 22:01 Nitroglycerin (Ntg) 0.4 mg Q5MIN X 3 DOSES PRN SL Prn Chest Pain 09/30/16 07:30 10/30/16 07:29 Olanzapine (ZyPREXA) 5 mg BEDTIME ORAL 10/05/16 21:00 11/04/16 20:59 10/13/16 21:26 Ondansetron HCl (Zofran) 4 mg Q6H PRN IVP Nausea & Vomiting 09/30/16 07:15 10/30/16 07:14 10/08/16 13:06 Pantoprazole (Protonix) 40 mg Q12HR ORAL 10/13/16 21:00 11/12/16 20:59 10/14/16 08:38 Polyethylene Glycol (Miralax) 17 gm DAILYPRN PRN ORAL Constipation 09/30/16 07:15 10/30/16 07:14 Allergies: Coded Allergies: No Known Allergies (Unverified , 09/29/16) ROS Limited/Unobtainable: Yes Subjective 76 YO M admitted with syncope and altered mental status. Cover for Int Med-Dr Fischer. [facility]wait [facility] to [facility]. S/P endoscopy 10/11/16. Objective Last Vital Signs Date Time Temp Pulse Resp B/P Pulse Ox O2 Delivery O2 Flow Rate FiO2 10/14/16 15:53 97.9 84 18 144/74 98 Room Air 10/11/16 07:41 2.0 10/06/16 08:56 21 Laboratory Tests Test 10/14/16 06:05 White Blood Count 3.9 K/UL (4.8-10.8) L Red Blood Count 4.40 M/UL (4.70-6.10) L Hemoglobin 13.1 G/DL (14.2-18.0) L Hematocrit 40.0 % (42.0-52.0) L Mean Corpuscular Volume 91 FL (80-99) Mean Corpuscular Hemoglobin 29.8 PG (27.0-31.0) Mean Corpuscular Hemoglobin Concent 32.8 G/DL (32.0-36.0) Red Cell Distribution Width 13.9 % (11.6-14.8) Platelet Count 169 K/UL (150-450) Mean Platelet Volume 7.3 FL (6.5-10.1) Neutrophils (%) (Auto) 53.7 % (45.0-75.0) Lymphocytes (%) (Auto) 28.5 % (20.0-45.0) Monocytes (%) (Auto) 13.5 % (1.0-10.0) H Eosinophils (%) (Auto) 3.2 % (0.0-3.0) H Basophils (%) (Auto) 1.2 % (0.0-2.0) Intake and Output 10/13/16 10/14/16 19:00 07:00 Intake Total 4300 ml 900 ml Output Total 1300 ml Balance 4300 ml -400 ml Intake Oral 4260 ml 150 ml IV Total 40 ml 750 ml Output Urine Total 1300 ml # Voids 2 4 Objective General: alert, cooperative, no distress, appears stated age Head: normocephalic, without obvious abnormality, atraumatic; Contusion left forehead Eyes: conjunctivae/corneas clear. PERRL, EOM's intact Throat: lips, mucosa, and tongue normal. MMM Neck: supple, symmetrical, trachea midline, and no JVD Lungs: clear to auscultation bilaterally Heart: regular rate and rhythm, S1, S2 normal, no murmur, click, rub or gallop Abdomen: soft, non-tender, non-distended, bowel sounds normal; no masses or organomegaly Extremities: extremities normal, atraumatic, no cyanosis or edema Pulses: 2+ and symmetric Skin: skin color, texture, turgor normal; no rashes or lesions Neurologic: grossly normal, no focal deficits Assessment/Plan Problem List: (1) Altered mental status Assessment & Plan: ?sepsis? Cultures negative so far. Continue cefepime and vanco. (2) Myalgia (3) Contusion of forehead Assessment & Plan: CT brain=no acute hemorrhage or infarct. See Psychiatric consult?psychosis?-see social work note. (4) Generalized weakness (5) Hypokalemia Assessment & Plan: Replace potassium PO (6) Nausea & vomiting Assessment & Plan: See GI consult. S/P endoscopy on 10/11/16 (7) Esophageal stricture Assessment & Plan: See GI note. Assessment/Plan Discharge planning: See psych note regarding Patient's lack of capacity for medical and placement decisions. A[facility] at [facility]- see case management note.. ALLEN FERRELL Oct 14, 2016 17:47
[2016-10-14 20:00] VITALS: BP 135/73
--- NOTE | 2016-10-14 21:17 | General Progress Note ---
Assessment/Plan Assessment/Plan Assessment - OBS - Encephalopathy - N/V - distal esophageal stricture Recommendations - PPI - elevate HOB - check labs - po pureed diet as tolerated - will need more endoscopic dilations in future - Will return monday to see pt Subjective Allergies: Coded Allergies: No Known Allergies (Unverified , 09/29/16) Subjective tolerating liquids no vomiting diet advanced to pureed discussed with over phone all questions answered Objective Last 24 Hour Vital Signs Date Time Temp Pulse Resp B/P Pulse Ox O2 Delivery O2 Flow Rate FiO2 10/14/16 20:00 97.4 81 16 135/73 97 Room Air 10/14/16 15:53 97.9 84 18 144/74 98 Room Air 10/14/16 11:53 96.8 61 18 142/68 100 Room Air 10/14/16 08:00 97.0 64 18 149/65 100 Room Air 10/14/16 04:00 97.3 83 20 132/64 93 Room Air 10/13/16 23:45 96.3 63 18 142/62 99 Room Air Intake and Output 10/13/16 10/14/16 19:00 07:00 Intake Total 4300 ml 975 ml Output Total 1300 ml Balance 4300 ml -325 ml Intake Oral 4260 ml 150 ml IV Total 40 ml 825 ml Output Urine Total 1300 ml # Voids 2 4 Laboratory Tests 10/14/16 06:05: White Blood Count 3.9L, Red Blood Count 4.40L, Hemoglobin 13.1L, Hematocrit 40.0L, Mean Corpuscular Volume 91, Mean Corpuscular Hemoglobin 29.8, Mean Corpuscular Hemoglobin Concent 32.8, Red Cell Distribution Width 13.9, Platelet Count 169, Mean Platelet Volume 7.3, Neutrophils (%) (Auto) 53.7, Lymphocytes (% ) (Auto) 28.5, Monocytes (%) (Auto) 13.5H, Eosinophils (%) (Auto) 3.2H, Basophils (%) (Auto) 1.2 Height (Feet): 5 Height (Inches): 5.00 Weight (Pounds): 95 Objective Thin WM NCAT temporal wasting CTA RR soft ND NT no edema non focal CHARLEY LARKIN Oct 14, 2016 21:17
[2016-10-14] MEDS: Depakote 125mg Sprinkles ORAL SCH (21:36)
--- NOTE | 2016-10-14 22:05 | Pulmonology Progress Note ---
Assessment/Plan Problems: (1) Acute encephalopathy (2) Myalgia (3) Contusion of forehead Assessment/Plan pt/ot psych evaluation social service evaluation family deosn't want him at home pending intermediate Subjective Allergies: Coded Allergies: No Known Allergies (Unverified , 09/29/16) Objective Last 24 Hour Vital Signs Date Time Temp Pulse Resp B/P Pulse Ox O2 Delivery O2 Flow Rate FiO2 10/14/16 20:00 97.4 81 16 135/73 97 Room Air 10/14/16 15:53 97.9 84 18 144/74 98 Room Air 10/14/16 11:53 96.8 61 18 142/68 100 Room Air 10/14/16 08:00 97.0 64 18 149/65 100 Room Air 10/14/16 04:00 97.3 83 20 132/64 93 Room Air 10/13/16 23:45 96.3 63 18 142/62 99 Room Air Intake and Output 10/13/16 10/14/16 19:00 07:00 Intake Total 4300 ml 975 ml Output Total 1300 ml Balance 4300 ml -325 ml Intake Oral 4260 ml 150 ml IV Total 40 ml 825 ml Output Urine Total 1300 ml # Voids 2 4 Objective Lines, tubes and drains: peripheral, HEENT: normocephalic, atraumatic Neck: non-tender Respiratory/Chest: chest wall non-tender Cardiovascular/Chest: normal peripheral pulses Abdomen: normal bowel sounds, feeding tube, other Genitourinary/Rectal: normal genital exam Extremities: normal range of motion, non-tender Laboratory Tests 10/14/16 06:05: White Blood Count 3.9L, Red Blood Count 4.40L, Hemoglobin 13.1L, Hematocrit 40.0L, Mean Corpuscular Volume 91, Mean Corpuscular Hemoglobin 29.8, Mean Corpuscular Hemoglobin Concent 32.8, Red Cell Distribution Width 13.9, Platelet Count 169, Mean Platelet Volume 7.3, Neutrophils (%) (Auto) 53.7, Lymphocytes (% ) (Auto) 28.5, Monocytes (%) (Auto) 13.5H, Eosinophils (%) (Auto) 3.2H, Basophils (%) (Auto) 1.2 Current Medications Medications (Trade) Dose Ordered Sig/Edith Route PRN Reason Start Time Stop Time Status Last Admin Dose Admin Acetaminophen (Tylenol) 650 mg Q4H PRN ORAL T>100.5 09/30/16 07:15 10/30/16 07:14 Aspirin 81 mg 81 mg DAILY ORAL 10/07/16 09:00 11/06/16 08:59 10/14/16 08:38 Dextrose/Sodium Chloride (D5 0.45% NS) 1,000 ml @ 75 mls/hr [id number] IV 10/08/16 19:00 11/07/16 18:59 10/14/16 08:38 Divalproex Sodium (Depakote Sprinkles) 500 mg BEDTIME ORAL 10/13/16 21:00 11/12/16 20:59 10/14/16 21:36 Heparin Sodium (Porcine) (Heparin 5000 units/ml) 5,000 units EVERY 12 HOURS SUBQ 09/30/16 09:00 10/30/16 08:59 10/14/16 21:37 Lorazepam (Ativan) 1 mg Q4H PRN ORAL For Anxiety 10/12/16 04:00 10/19/16 03:59 10/12/16 22:01 Nitroglycerin (Ntg) 0.4 mg Q5MIN X 3 DOSES PRN SL Prn Chest Pain 09/30/16 07:30 10/30/16 07:29 Olanzapine (ZyPREXA) 5 mg BEDTIME ORAL 10/05/16 21:00 11/04/16 20:59 10/14/16 21:35 Ondansetron HCl (Zofran) 4 mg Q6H PRN IVP Nausea & Vomiting 09/30/16 07:15 10/30/16 07:14 10/08/16 13:06 Pantoprazole (Protonix) 40 mg Q12HR ORAL 10/13/16 21:00 11/12/16 20:59 10/14/16 21:36 Polyethylene Glycol (Miralax) 17 gm DAILYPRN PRN ORAL Constipation 09/30/16 07:15 10/30/16 07:14 RICHARD MACDONALD Oct 14, 2016 22:05
[2016-10-14] MEDS ORDERED: D5 1/2NS 1000ml IV ONE (22:42)
[2016-10-15] VITALS: BP 132/64
[2016-10-15 04:00] VITALS: BP 112/45
[2016-10-15] MEDS: D5 1/2NS 1,000 ML IV SCH (05:33)
[2016-10-15 08:00] VITALS: BP 120/68
[2016-10-15] MEDS: LORazepam 1mg tab ORAL PRN (08:10)
[2016-10-15] MEDS: Aspirin EC 81mg tab ORAL SCH (08:10)
[2016-10-15] MEDS: Heparin 5000 units/ml inj SUBQ SCH ×2 (08:12→21:51)
[2016-10-15 12:00] VITALS: BP 139/68
[2016-10-15] MEDS ORDERED: D5 1/2NS 1000ml IV ONE (14:53)
[2016-10-15] MEDS ORDERED: PROTONIX40 MG ORAL (15:59)
[2016-10-15] MEDS ORDERED: ASPIR 8181 MG ORAL (15:59)
[2016-10-15 16:00] VITALS: BP 145/70
[2016-10-15] MEDS ORDERED: ATIVAN1 MG ORAL (16:00)
[2016-10-15] MEDS ORDERED: ZYPREXA5 MG ORAL (16:01)
[2016-10-15] MEDS ORDERED: DEPAKOTE SPRIN125 MG PO (16:01)
[2016-10-15] MEDS ORDERED: ACETAMINOPHEN325 M1 ORAL (16:03)
--- NOTE | 2016-10-15 17:30 | Internal Med Progress Note ---
Subjective Date of Service: Oct 15, 2016 Physician Name Allen Ferrell Attending Physician Hussain Fischer MD Current Medications Medications (Trade) Dose Ordered Sig/Edith Route PRN Reason Start Time Stop Time Status Last Admin Dose Admin Acetaminophen (Tylenol) 650 mg Q4H PRN ORAL T>100.5 09/30/16 07:15 10/30/16 07:14 Aspirin 81 mg 81 mg DAILY ORAL 10/07/16 09:00 11/06/16 08:59 10/15/16 08:10 Dextrose/Sodium Chloride (D5 0.45% NS) 1,000 ml @ 75 mls/hr [id number] IV 10/08/16 19:00 11/07/16 18:59 10/15/16 05:33 Divalproex Sodium (Depakote Sprinkles) 500 mg BEDTIME ORAL 10/13/16 21:00 11/12/16 20:59 10/14/16 21:36 Heparin Sodium (Porcine) (Heparin 5000 units/ml) 5,000 units EVERY 12 HOURS SUBQ 09/30/16 09:00 10/30/16 08:59 10/15/16 08:12 Lorazepam (Ativan) 1 mg Q4H PRN ORAL For Anxiety 10/12/16 04:00 10/19/16 03:59 10/15/16 08:10 Nitroglycerin (Ntg) 0.4 mg Q5MIN X 3 DOSES PRN SL Prn Chest Pain 09/30/16 07:30 10/30/16 07:29 Olanzapine (ZyPREXA) 5 mg BEDTIME ORAL 10/05/16 21:00 11/04/16 20:59 10/14/16 21:35 Ondansetron HCl (Zofran) 4 mg Q6H PRN IVP Nausea & Vomiting 09/30/16 07:15 10/30/16 07:14 10/08/16 13:06 Pantoprazole (Protonix) 40 mg Q12HR ORAL 10/13/16 21:00 11/12/16 20:59 10/15/16 08:10 Polyethylene Glycol (Miralax) 17 gm DAILYPRN PRN ORAL Constipation 09/30/16 07:15 10/30/16 07:14 Allergies: Coded Allergies: No Known Allergies (Unverified , 09/29/16) ROS Limited/Unobtainable: Yes Subjective 76 YO M admitted with syncope and altered mental status. Cover for Int Med-Dr Fischer. Await acceptance to [facility] today. S/P endoscopy 10/11/16. Objective Last Vital Signs Date Time Temp Pulse Resp B/P Pulse Ox O2 Delivery O2 Flow Rate FiO2 10/15/16 16:00 97.5 78 20 145/70 97 Room Air 10/11/16 07:41 2.0 10/06/16 08:56 21 Intake and Output 10/14/16 10/15/16 19:00 07:00 Intake Total 1545 ml 225 ml Balance 1545 ml 225 ml Intake Oral 720 ml IV Total 825 ml 225 ml # Voids 4 2 Objective General: alert, cooperative, no distress, appears stated age Head: normocephalic, without obvious abnormality, atraumatic; Contusion left forehead Eyes: conjunctivae/corneas clear. PERRL, EOM's intact Throat: lips, mucosa, and tongue normal. MMM Neck: supple, symmetrical, trachea midline, and no JVD Lungs: clear to auscultation bilaterally Heart: regular rate and rhythm, S1, S2 normal, no murmur, click, rub or gallop Abdomen: soft, non-tender, non-distended, bowel sounds normal; no masses or organomegaly Extremities: extremities normal, atraumatic, no cyanosis or edema Pulses: 2+ and symmetric Skin: skin color, texture, turgor normal; no rashes or lesions Neurologic: grossly normal, no focal deficits Assessment/Plan Problem List: (1) Altered mental status Assessment & Plan: ?sepsis? Cultures negative so far. Continue cefepime and vanco. (2) Myalgia (3) Contusion of forehead Assessment & Plan: CT brain=no acute hemorrhage or infarct. See Psychiatric consult?psychosis?-see social work note. (4) Generalized weakness (5) Hypokalemia Assessment & Plan: Replace potassium PO (6) Nausea & vomiting Assessment & Plan: See GI consult. S/P endoscopy on 10/11/16 (7) Esophageal stricture Assessment & Plan: See GI note. Assessment/Plan Discharge planning: See psych note regarding Patient's lack of capacity for medical and placement decisions. Discharge to [facility] today. ALLEN FERRELL Oct 15, 2016 17:30
--- NOTE | 2016-10-15 18:20 | Pulmonology Progress Note ---
Assessment/Plan Problems: (1) Acute encephalopathy (2) Myalgia (3) Contusion of forehead (4) Pulmonary nodule (5) Esophageal stricture Assessment/Plan pulmonary nodule probably old granuloma, might benefit from outpatient PET study psych evaluation social service evaluation family deosn't want him at home pending alf Subjective ROS Limited/Unobtainable: No Constitutional: Reports: no symptoms HEENT: Repors: no symptoms Allergies: Coded Allergies: No Known Allergies (Unverified , 09/29/16) Objective Last 24 Hour Vital Signs Date Time Temp Pulse Resp B/P Pulse Ox O2 Delivery O2 Flow Rate FiO2 10/15/16 16:00 97.5 78 20 145/70 97 Room Air 10/15/16 12:00 97.3 63 20 139/68 98 Room Air 10/15/16 08:00 97.5 68 20 120/68 96 Room Air 10/15/16 04:00 97.6 62 18 112/45 99 Room Air 10/15/16 00:00 97.2 60 14 132/64 98 Room Air 10/14/16 20:00 97.4 81 16 135/73 97 Room Air Intake and Output 10/14/16 10/15/16 19:00 07:00 Intake Total 1545 ml 225 ml Balance 1545 ml 225 ml Intake Oral 720 ml IV Total 825 ml 225 ml # Voids 4 2 Objective Lines, tubes and drains: peripheral, HEENT: normocephalic, atraumatic Neck: non-tender Respiratory/Chest: chest wall non-tender Cardiovascular/Chest: normal peripheral pulses Abdomen: normal bowel sounds, feeding tube, other Genitourinary/Rectal: normal genital exam Extremities: normal range of motion, non-tender Current Medications Medications (Trade) Dose Ordered Sig/Edith Route PRN Reason Start Time Stop Time Status Last Admin Dose Admin Acetaminophen (Tylenol) 650 mg Q4H PRN ORAL T>100.5 09/30/16 07:15 10/30/16 07:14 Aspirin 81 mg 81 mg DAILY ORAL 10/07/16 09:00 11/06/16 08:59 10/15/16 08:10 Dextrose/Sodium Chloride (D5 0.45% NS) 1,000 ml @ 75 mls/hr [id number] IV 10/08/16 19:00 11/07/16 18:59 10/15/16 05:33 Divalproex Sodium (Depakote Sprinkles) 500 mg BEDTIME ORAL 10/13/16 21:00 11/12/16 20:59 10/14/16 21:36 Heparin Sodium (Porcine) (Heparin 5000 units/ml) 5,000 units EVERY 12 HOURS SUBQ 09/30/16 09:00 10/30/16 08:59 10/15/16 08:12 Lorazepam (Ativan) 1 mg Q4H PRN ORAL For Anxiety 10/12/16 04:00 10/19/16 03:59 10/15/16 08:10 Nitroglycerin (Ntg) 0.4 mg Q5MIN X 3 DOSES PRN SL Prn Chest Pain 09/30/16 07:30 10/30/16 07:29 Olanzapine (ZyPREXA) 5 mg BEDTIME ORAL 10/05/16 21:00 11/04/16 20:59 10/14/16 21:35 Ondansetron HCl (Zofran) 4 mg Q6H PRN IVP Nausea & Vomiting 09/30/16 07:15 10/30/16 07:14 10/08/16 13:06 Pantoprazole (Protonix) 40 mg Q12HR ORAL 10/13/16 21:00 11/12/16 20:59 10/15/16 08:10 Polyethylene Glycol (Miralax) 17 gm DAILYPRN PRN ORAL Constipation 09/30/16 07:15 10/30/16 07:14 RICHARD MACDONALD Oct 15, 2016 18:20
[2016-10-15 19:45] VITALS: BP 149/77
[2016-10-15] MEDS: Depakote 125mg Sprinkles ORAL SCH (21:23)
--- NOTE | 2016-10-18 13:49 | Discharge Summary ---
Discharge Summary Hospital Course Date of Admission Sep 30, 2016 at 03:15 Date of Discharge Oct 15, 2016 at 21:48 Admitting Diagnosis ams, hypokalemia HPI Teja Mac is a 76 year old male who was admitted on Sep 30, 2016 at 03:15 for Altered Mental Status,Hypokalemia Hospital Course dc summary#[id number] Discharge Medications Continued Medications: Acetaminophen* (Acetaminophen 325MG Tablet*) 325 Mg Tablet 650 MG ORAL EVERY 6 HOURS PRN for For Pain, TAB Aspirin* (Aspir 81*) 81 Mg Tablet.dr 81 MG ORAL DAILY, TAB Divalproex Sodium (Depakote Sprinkle) 125 Mg Cap.sprink 500 MG PO BEDTIME, CAP Lorazepam* (Ativan*) 1 Mg Tablet 1 MG ORAL EVERY 4 HOURS for For Anxiety, TAB Olanzapine* (Zyprexa*) 5 Mg Tablet 5 MG ORAL BEDTIME, TAB Pantoprazole* (Protonix*) 40 Mg Tablet.dr 40 MG ORAL EVERY 12 HOURS, TAB Unable to Obtain Medications (Unable To Obtain Meds) 1 Ea Ea Discharge Condition Upon Discharge: stable Discharge Disposition Patient was discharged to SNF/Subacute Facility(03) Discharge Diagnoses: [place] ([facility])Melissa NP Oct 18, 2016 13:49
--- NOTE | 2016-10-19 00:28 | Discharge Summary 2 SIG ---
DATE OF ADMISSION: 09/30/2016 DATE OF DISCHARGE: 10/15/2016 REASON FOR ADMISSION: 76-year-old male presented to emergency department after increased generalized body aches and generalized weakness. The patient was confused. The patient reported being in pain, but unable to provide much of the information. Workup in the emergency room revealed potassium of 2.9. The patient was admitted for further management. ADMITTING DIAGNOSES: 1. Acute encephalopathy. 2. Acute hypokalemia. 3. Generalized weakness. 4. Myalgia. HOSPITAL STAY: The patient was admitted. The patient initially was on empiric antibiotic. Blood and urine culture negative. Currently off antibiotics. Fall precaution maintained. The patient was working with physical and occupational therapists. Carotid Duplex revealed evidence of moderate stenosis of common carotid artery. Subsequently CTA of the head revealed right internal carotid artery 50% stenosis. Aspirin continued. Lipid panel was stable. DVT prophylaxis provided. Potassium repleted and stable afterwards.. Psychiatrist seen and evaluated the patient. Per psychiatrist, the patient lacks capacity to make informed decisions. Psychiatrist concluded, that the patient unable to leave alone and unable to care for himself. Zyprexa and Depakote were continued as per psychiatrist's recommendation. The patient needed a placement. Social service was arranging placement. The patient noted to have dysphagia. The patient undergone EGD and found to have distal esophageal stricture suggestive of GERD/peptic etiology. The stricture was dilated to 12 mm and biopsied; also noted hiatal hernia, 3 to 4 cm. GI closely followed. The patient was on PPI . Head of the bed elevated. The patient started on oral diet as tolerated. Dies as per ST recommendation. According to the GI specialist, the patient will need more dilatation in future. Placement was found and secured, and the patient was transferred to the half-way facility for further management. DISCHARGE DIAGNOSES: 1. Acute encephalopathy on chronic dementia. 2. Acute hypokalemia, resolved. 3. Dysphagia. 4. Status post esophagogastroduodenoscopy. 5. Distal esophageal stricture, status post dilatation and biopsy. 6. Generalized weakness. 7. Myalgia. 8. Carotid stenosis, right internal carotid artery. 9. Dementia with behavioral disturbances. 10. Gastroesophageal reflux disease. DISCHARGE MEDICATIONS: See medication reconciliation list. DISCHARGE INSTRUCTIONS: The patient discharged to half-way facility. Follow up with medical doctor at the facility. Hussain Fischer M.D. I have been assigned to dictate discharge summary on this account and I was not involved in the patient's management. Melissa Rinaldi (Vanchtein) N.PKyler DR: Etta JOB#: [id number] CC: CARLOS ALBERTO
== END 2016-10-15 21:48 | DRG 52 ==
LOC: EDBD 22:38 → EMR 23:20 → 4E 09-30 03:15 → EDBEDREQ 09-30 03:43 → 4E 09-30 14:04
PROC: 0DB68ZX Excision of Stomach, Via Natural or Artificial Opening Endoscopic, Diagnostic (ICD-10-PCS; principal; 2016-09-30)
PROC: 0D738ZZ Dilation of Lower Esophagus, Via Natural or Artificial Opening Endoscopic (ICD-10-PCS; 2016-09-30)
DX: G93.40 Encephalopathy, unspecified (principal); F03.91 Unspecified dementia, unspecified severity, with behavioral disturbance; K22.2 Esophageal obstruction; E87.6 Hypokalemia; S00.83XA Contusion of other part of head, initial encounter; M79.1 Myalgia; K44.9 Diaphragmatic hernia without obstruction or gangrene; I65.21 Occlusion and stenosis of right carotid artery; R13.10 Dysphagia, unspecified; K21.9 Gastro-esophageal reflux disease without esophagitis; R11.2 Nausea with vomiting, unspecified; X58.XXXA Exposure to other specified factors, initial encounter; F29 Unspecified psychosis not due to a substance or known physiological condition; R91.1 Solitary pulmonary nodule
CPT/HCPCS: 36415; 70496; 71010; 71250; 74000; 74230; 80048; 80053; 80061; 80202; 82550; 82553; 83605; 83735; 84100; 84484; 85025; 87040; 87070; 87086; 87205; 93005; 93880; 94003; 94150; 94664; J2405; J8499